=== PATIENT | male | born 1950 | race Caucasian/White ===

== ENCOUNTER → 2016-05-10 | Outpatient (CLI) | payer OTHER | LOC: BHFA 13:15 | PROVIDERS: ATTEND Internal Medicine Cardiovascular Disease | DX: I48.0 Paroxysmal atrial fibrillation (principal); I25.10 Atherosclerotic heart disease of native coronary artery without angina pectoris; E11.9 Type 2 diabetes mellitus without complications; E11.42 Type 2 diabetes mellitus with diabetic polyneuropathy; I10 Essential (primary) hypertension; I25.9 Chronic ischemic heart disease, unspecified; E78.5 Hyperlipidemia, unspecified ==

== ENCOUNTER → 2016-05-19 | Outpatient (CLI) | payer OTHER | LOC: BHFA 15:30 | PROVIDERS: ATTEND Internal Medicine Cardiovascular Disease | DX: I25.10 Atherosclerotic heart disease of native coronary artery without angina pectoris (principal); I48.91 Unspecified atrial fibrillation; I10 Essential (primary) hypertension ==

== ENCOUNTER → 2016-12-21 | Outpatient (CLI) | payer OTHER | LOC: BMCIMAGING 10:33 | PROVIDERS: ATTEND Internal Medicine | DX: J42 Unspecified chronic bronchitis (principal) ==

== ENCOUNTER → 2017-05-02 | Outpatient (CLI) | payer OTHER | LOC: BMCIMAGING 11:22 | PROVIDERS: ATTEND Family Medicine | DX: S52.572A Other intraarticular fracture of lower end of left radius, initial encounter for closed fracture (principal) ==

== ENCOUNTER → 2017-05-09 | Outpatient (CLI) | payer OTHER | LOC: BMCLAB 08:31 → BMCIMAGING 08:31 → EDSTATUS 08:33 | PROVIDERS: ATTEND Physician Assistant | DX: S52.572D Other intraarticular fracture of lower end of left radius, subsequent encounter for closed fracture with routine healing (principal) ==

== ENCOUNTER → 2017-05-16 | Outpatient (CLI) | payer OTHER | LOC: BMCIMAGING 09:42 | PROVIDERS: ATTEND Orthopaedic Surgery Hand Surgery | DX: S59.292D Other physeal fracture of lower end of radius, left arm, subsequent encounter for fracture with routine healing (principal) ==

== ENCOUNTER → 2017-05-25 | Outpatient (CLI) | payer OTHER | LOC: BMCIMAGING 14:01 | PROVIDERS: ATTEND Physician Assistant | DX: S52.532D Colles' fracture of left radius, subsequent encounter for closed fracture with routine healing (principal) ==

== ENCOUNTER → 2017-06-17 | Outpatient (CLI) | payer OTHER | LOC: BMCIMAGING 13:26 | PROVIDERS: ATTEND Physician Assistant | DX: S52.572D Other intraarticular fracture of lower end of left radius, subsequent encounter for closed fracture with routine healing (principal); M17.0 Bilateral primary osteoarthritis of knee ==

== ENCOUNTER 2017-08-31 09:38 | Inpatient (IN) | payer OTHER ==
--- NOTE | 2017-08-31 09:48 | EDPHY ---
H & P Time Seen by Provider: 08/31/17 09:47 HPI/ROS: CHIEF COMPLAINT: Increasing weakness, multiple falls HISTORY OF PRESENT ILLNESS: The patient is brought to the emergency department by paramedics for increasing weakness resulting in multiple falls. The patient states that today he is so weak that he can't walk. The patient has sustained falls but denies any significant head injury, neck pain, extremity pain or back pain. He does complain of some gluteal pain which was present prior to his following. The patient reports a history of a tachycardia which is chronic. The patient does report mild dyspnea. He denies asymmetric calf pain or swelling. The patient reportedly is scheduled to be evaluated by Cardiology for his tachycardia. REVIEW OF SYSTEMS: A comprehensive 10 point review of systems is otherwise negative aside from elements mentioned in the history of present illness. Source: Patient Exam Limitations: No limitations - Family History Significant Family History: No pertinent family hx - Physical Exam Exam: General Appearance: Alert, no distress Head: Normocephalic atraumatic Neck: No midline tenderness Eyes: Pupils equal and round no pallor or injection ENT, Mouth: Dry mucous membranes Respiratory: There are no retractions, lungs are clear to auscultation Cardiovascular: Tachycardic, irregular Gastrointestinal: Abdomen is soft and nontender, no masses, bowel sounds normal Neurological: 5/5 strength all 4 extremities Skin: Erythema noted to the bilateral lower extremities Musculoskeletal: Neck is supple nontender Extremities: 2+ pitting edema bilaterally Constitutional: Initial Vital Signs Temperature (C) 36.5 C 08/31/17 09:45 Heart Rate 122 H 08/31/17 09:45 Respiratory Rate 18 08/31/17 09:45 Blood Pressure 142/57 H 08/31/17 09:45 O2 Sat (%) 91 L 08/31/17 09:45 O2 Delivery Mode Room Air Allergies/Adverse Reactions: No Known Allergies Allergy (Verified 08/31/17 10:56) Home Medications: Medication Instructions Recorded Aspirin [Aspirin 81mg (*)] 162 mg PO HS 08/31/17 Atorvastatin Calcium [Lipitor 20 20 mg PO DAILY 08/31/17 mg (*)] Gabapentin [Neurontin 400 MG (*)] 1,200 mg PO BID 08/31/17 Losartan Potassium [Cozaar 50 mg 50 mg PO DAILY 08/31/17 (*)] Methenamine Mandelate [METHENAMINE 500 gm PO HS 08/31/17 MANDELATE] Pioglitazone HCl [Actos] 45 mg PO DAILY 08/31/17 Tamsulosin HCl [Flomax 0.4 MG (*)] 0.4 mg PO DAILY 08/31/17 glyBURIDE [Glyburide] 10 mg PO BID 08/31/17 metFORMIN HCL [Glucophage 500 mg 1,000 mg PO BID 08/31/17 (*)] Medical Decision Making - Diagnostics EKG Interpretation: EKG: Complete interpretation has been separately recorded in the [facility] archive. Summary impression: Atrial fibrillation, rate 118 Imaging Results: Imaging Impressions Chest X-Ray 08/31/17 09:47 Impression: Possible cardiomegaly without obvious CHF. A routine PA and lateral chest would be useful to better evaluate the cardiac status and in order to directly compare to previous examinations. ED Course/Re-evaluation: The patient presents to the ED with increasing weakness and a history of falling over the past several weeks. The patient did not strike his head or lose consciousness. The patient has no significant traumatic injury identified on his physical exam. The patient is noted to have evidence of mild cellulitis. He is in atrial fibrillation and noted to be hypoxemic. Workup in the emergency department included a EKG which demonstrates atrial fibrillation with rate related changes. His initial troponin is normal. He does have an elevated D-dimer of 0.56. Given his tachycardia and hypoxemia CT pulmonary angiogram has been ordered. Additionally, the patient has evidence of mild cellulitis versus stasis dermatitis to his lower extremities. Blood cultures x2 have been obtained. The patient will be started on 1 g of IV Ancef. The patient will require admission to the hospital. Consultation is made with the hospitalist service. The patient will be admitted to the progressive care unit by Dr. Thurston. CT pulmonary angiogram demonstrates no evidence of an obvious PE or pericardial effusion. Patient will be admitted to the hospital for further observation and management. Differential Diagnosis: Differential diagnosis considered includes atrial fibrillation, atrial flutter, SVT, dehydration, metabolic abnormality, anemia - Data Points Laboratory Results: Laboratory Results 08/31/17 10:25 08/31/17 10:25 08/31/17 08/31/17 08/31/17 10:25 10:25 10:25 WBC 8.85 10^3/uL 10^3/uL (3.80-9.50) RBC 4.46 10^6/uL 10^6/uL (4.40-6.38) Hgb 11.6 g/dL L g/dL (13.7-17.5) Hct 35.3 % L % (40.0-51.0) MCV 79.1 fL L fL (81.5-99.8) MCH 26.0 pg L pg (27.9-34.1) MCHC 32.9 g/dL g/dL (32.4-36.7) RDW 14.8 % % (11.5-15.2) Plt Count 241 10^3/uL 10^3/uL (150-400) MPV 8.8 fL fL (8.7-11.7) Neut % (Auto) 82.9 % H % (39.3-74.2) Lymph % (Auto) 7.7 % L % (15.0-45.0) [place] % (Auto) 8.9 % % (4.5-13.0) Eos % (Auto) 0.0 % L % (0.6-7.6) Baso % (Auto) 0.2 % L % (0.3-1.7) Nucleat RBC Rel Count 0.0 % % (0.0-0.2) Absolute Neuts (auto) 7.33 10^3/uL H 10^3/uL (1.70-6.50) Absolute Lymphs (auto) 0.68 10^3/uL L 10^3/uL (1.00-3.00) Absolute Monos (auto) 0.79 10^3/uL 10^3/uL (0.30-0.80) Absolute Eos (auto) 0.00 10^3/uL L 10^3/uL (0.03-0.40) Absolute Basos (auto) 0.02 10^3/uL 10^3/uL (0.02-0.10) Absolute Nucleated RBC 0.00 10^3/uL 10^3/uL (0-0.01) Immature Gran % 0.3 % % (0.0-1.1) Immature Gran # 0.03 10^3/uL 10^3/uL (0.00-0.10) D-Dimer 0.56 ug/mLFEU H ug/mLFEU (0.00-0.50) Sodium 129 mEq/L L mEq/L (135-145) Potassium 4.2 mEq/L mEq/L (3.3-5.0) Chloride 88 mEq/L L mEq/L (97-110) Carbon Dioxide 25 mEq/l mEq/l (22-31) Anion Gap 16 mEq/L mEq/L (8-16) BUN 12 mg/dL mg/dL (7-23) Creatinine 0.7 mg/dL mg/dL (0.7-1.3) Estimated GFR > 60 Glucose 154 mg/dL H mg/dL (70-100) Calcium 9.9 mg/dL mg/dL (8.5-10.4) Troponin I 0.034 ng/mL ng/mL (0.000-0.034) Medications Given: Discontinued Medications Cefazolin Sodium/Dextrose (Ancef 1 Gm (Premix)) 50 mls @ 200 mls/hr IV EDNOW ONE PRN Reason: Protocol Stop: 08/31/17 12:15 Last Admin: 08/31/17 13:05 Dose: 50 mls Departure - Departure Disposition: [facility] Inpatient Acute Clinical Impression: Atrial fibrillation, Weakness, Dehydration Condition: Fair
--- NOTE | 2017-08-31 09:52 | CPEKG ---
Heart Rate: 118 RR Interval: 508 QRSD Interval: 102 QT Interval: 340 QTC Interval: 477 QRS Layton: 69 T Wave Layton: -61 EKG Severity - ABNORMAL ECG - EKG Impression: ATRIAL FIBRILLATION, V-RATE 90-152 Electronically Signed By: Feliberto Lanza 31-Aug-2017 10:43:47
[2017-08-31 10:34] LABS: PLATELET COUNT 241 10^3/uL (150-400)
[2017-08-31] MEDS ORDERED: ONDANSETRON DISINTEGRATING 4 MG TAB PO PRN (11:00)
[2017-08-31] MEDS ORDERED: NS 1,000 ML IV SCH (11:00)
[2017-08-31] MEDS ORDERED: ONDANSETRON 4 MG/2 ML VIAL IVP PRN (11:00)
[2017-08-31] MEDS ORDERED: ENOXAPARIN 120 MG/0.8 ML SYR SC SCH (11:15)
[2017-08-31] MEDS ORDERED: IOPAMIDOL (ISOVUE 370) 100 ML BTL IV ONE (11:28)
[2017-08-31] MEDS: BUMETANIDE 1 MG/4 ML VIAL IVP SCH (14:49)
--- NOTE | 2017-08-31 14:52 | PDGENHP ---
History and Physical - Chief Complaint Acute weakness - History of Present Illness Primary care provider: Dr. Roberts Primary bulb brander: Dr. Harley Monson History of present illness: 67-year-old male presenting with acute weakness characterized as inability to stand or ambulate with associated subsequent fall , onset of symptoms on the morning of presentation and duration persistent thereafter. Patient reports that they are occurring in the context of several weeks of intermittent symptoms of fatigue, weakness, significant weight gain, abdominal swelling, lower extremity edema. Approximately 2 months ago, the patient began gaining weight, and has gained approximately 50 lb in the interim. He was seen by his primary care provider for this issue, and reportedly 3 different diuretics have been attempted orally, and patient has only begun responding to the 3rd one recently. He does report that the response has resulted in approximately 10 lb of water loss, but he remains approximately 40 lb above his previous weight. He does endorse intermittent dyspnea, but he denies overt shortness of breath at this time. He denies any chest pain, palpitations, lightheadedness. He reports that he is usually able to sense his atrial fibrillation if it is running fast, but he is not currently sense it. Other than his diuretic dose adjustments, he has not made any other medication dose adjustments recently. History Information - Allergies/Home Medication List Allergies/Adverse Reactions: No Known Allergies Allergy (Verified 08/31/17 10:56) Home Medications: Aspirin [Aspirin 81mg (*)] 162 mg PO HS 08/31/17 [Last Taken 08/30/17] Atorvastatin Calcium [Lipitor 20 mg (*)] 20 mg PO DAILY 08/31/17 [Last Taken ] Gabapentin [Neurontin 400 MG (*)] 1,200 mg PO BID 08/31/17 [Last Taken 08/31/17] Losartan Potassium [Cozaar 50 mg (*)] 50 mg PO DAILY 08/31/17 [Last Taken ] Methenamine Mandelate [METHENAMINE MANDELATE] 0.5 gm PO HS 08/31/17 [Last Taken 08/30/17] Pioglitazone HCl [Actos] 45 mg PO DAILY 08/31/17 [Last Taken 08/31/17] Tamsulosin HCl [Flomax 0.4 MG (*)] 0.4 mg PO DAILY 08/31/17 [Last Taken 08/31/17 ] glyBURIDE [Glyburide] 10 mg PO BID 08/31/17 [Last Taken 08/31/17] metFORMIN HCL [Glucophage 500 mg (*)] 1,000 mg PO BID 08/31/17 [Last Taken 08/31] I have personally reviewed and updated: family history, medical history, social history, surgical history - Past Medical History atrial fibrillation (Paroxysmal), coronary artery disease, diabetes type 2 (Not on insulin), GERD Additional medical history: Obstructive sleep apnea diagnosed approximately 1/2 weeks ago, patient has not been placed on CPAP as yet. Bilateral lower extremity neuropathy. Bronchospasm. Peripheral arterial disease - Surgical History Reports: coronary bypass surgery (2000) Additional surgical history: New previous surgery to the hips or legs - Family History Additional family history: No recent sick family contacts - Social History Smoking Status: Former smoker Alcohol Use: Occasionally (2 alcoholic beverages on the night prior to presentation, no history of withdrawal) Drug Use: None Additional social history: Independent in his ADLs Review of Systems Review of Systems: ROS: 10pt was reviewed & negative except for what was stated in HPI & below Constitutional: Reports: weakness, other (Substantial weight gain) Cardiac: Reports: edema (Bilateral lower extremities) Respiratory: Reports: other (Dyspnea) Gastrointestinal: Reports: abdominal distention Physical Exam Physical Exam: Temp Pulse Resp BP Pulse Ox 37.6 C 120 H 20 137/67 H 87 L 08/31/17 13:24 08/31/17 13:24 08/31/17 13:24 08/31/17 13:24 08/31/17 13:24 Constitutional: no apparent distress, not in pain, chronically ill appearing, obese, No uncomfortable Eyes: PERRL, anicteric sclera, EOMI Ears, Nose, Mouth, Throat: moist mucous membranes, hearing normal, ears appear normal, no oral mucosal ulcers Cardiovascular: irregularly irregular, JVD (And positive hepatic jugular reflux) , tachycardia, edema (2+ bilateral lower extremities), No systolic murmur Respiratory: no respiratory distress, no rales or rhonchi, clear to auscultation Gastrointestinal: distension (Moderate), No tenderness, No guarding Skin: other ([place] ability in his bilateral inner thighs, soft tissue edema which is nontender, erythema and some skin breaks in his bilateral anterior lower extremities, several pressure injury on his backside) Neurologic: AAOx3, sensation intact bilaterally, No weakness (Motor strength 5/ 5 bilateral proximal lower extremities) Psychiatric: interacting appropriately, not anxious, not encephalopathic, thought process linear Lab Data & Imaging Review 08/31/17 10:25 08/31/17 10:25 WBC 8.85 10^3/uL (3.80-9.50) 08/31/17 10:25 RBC 4.46 10^6/uL (4.40-6.38) 08/31/17 10:25 Hgb 11.6 g/dL (13.7-17.5) L 08/31/17 10:25 Hct 35.3 % (40.0-51.0) L 08/31/17 10:25 MCV 79.1 fL (81.5-99.8) L 08/31/17 10:25 MCH 26.0 pg (27.9-34.1) L 08/31/17 10:25 MCHC 32.9 g/dL (32.4-36.7) 08/31/17 10:25 RDW 14.8 % (11.5-15.2) 08/31/17 10:25 Plt Count 241 10^3/uL (150-400) 08/31/17 10:25 MPV 8.8 fL (8.7-11.7) 08/31/17 10:25 Neut % (Auto) 82.9 % (39.3-74.2) H 08/31/17 10:25 Lymph % (Auto) 7.7 % (15.0-45.0) L 08/31/17 10:25 [place] % (Auto) 8.9 % (4.5-13.0) 08/31/17 10:25 Eos % (Auto) 0.0 % (0.6-7.6) L 08/31/17 10:25 Baso % (Auto) 0.2 % (0.3-1.7) L 08/31/17 10:25 Nucleat RBC Rel Count 0.0 % (0.0-0.2) 08/31/17 10:25 Absolute Neuts (auto) 7.33 10^3/uL (1.70-6.50) H 08/31/17 10:25 Absolute Lymphs (auto) 0.68 10^3/uL (1.00-3.00) L 08/31/17 10:25 Absolute Monos (auto) 0.79 10^3/uL (0.30-0.80) 08/31/17 10:25 Absolute Eos (auto) 0.00 10^3/uL (0.03-0.40) L 08/31/17 10:25 Absolute Basos (auto) 0.02 10^3/uL (0.02-0.10) 08/31/17 10:25 Absolute Nucleated RBC 0.00 10^3/uL (0-0.01) 08/31/17 10:25 Immature Gran % 0.3 % (0.0-1.1) 08/31/17 10:25 Immature Gran # 0.03 10^3/uL (0.00-0.10) 08/31/17 10:25 D-Dimer 0.56 ug/mLFEU (0.00-0.50) H 08/31/17 10:25 Sodium 129 mEq/L (135-145) L 08/31/17 10:25 Potassium 4.2 mEq/L (3.3-5.0) 08/31/17 10:25 Chloride 88 mEq/L (97-110) L 08/31/17 10:25 Carbon Dioxide 25 mEq/l (22-31) 08/31/17 10:25 Anion Gap 16 mEq/L (8-16) 08/31/17 10:25 BUN 12 mg/dL (7-23) 08/31/17 10:25 Creatinine 0.7 mg/dL (0.7-1.3) 08/31/17 10:25 Estimated GFR > 60 08/31/17 10:25 Glucose 154 mg/dL (70-100) H 08/31/17 10:25 Calcium 9.9 mg/dL (8.5-10.4) 08/31/17 10:25 Troponin I 0.034 ng/mL (0.000-0.034) 08/31/17 10:25 Urine Color YELLOW 08/31/17 13:00 Urine Appearance HAZY 08/31/17 13:00 Urine pH 6.0 (5.0-7.5) 08/31/17 13:00 Ur Specific [place] > 1.035 (1.002-1.030) H 08/31/17 13:00 Urine Protein NEGATIVE (NEGATIVE) 08/31/17 13:00 Urine Ketones TRACE (NEGATIVE) H 08/31/17 13:00 Urine Blood 1+ (NEGATIVE) H 08/31/17 13:00 Urine Nitrate NEGATIVE (NEGATIVE) 08/31/17 13:00 Urine Bilirubin NEGATIVE (NEGATIVE) 08/31/17 13:00 Urine Urobilinogen 2.0 EU (0.2-1.0) H 08/31/17 13:00 Ur Leukocyte Esterase 3+ (NEGATIVE) H 08/31/17 13:00 Urine RBC 3-5 /hpf (0-3) H 08/31/17 13:00 Urine WBC 50-182 /hpf (0-3) H 08/31/17 13:00 Ur Epithelial Cells TRACE /lpf (NONE-1+) 08/31/17 13:00 Urine Mucus TRACE /lpf (NONE-1+) 08/31/17 13:00 Urine Glucose NEGATIVE (NEGATIVE) 08/31/17 13:00 Visualized and Interpreted Chest x-ray results: Yes Chest X-Ray results: no infiltrate, other (Cardiomegaly, sternotomy wires) Visualized and Interpreted EKG results: Yes EKG Interpretation: Positive for: other (Atrial fibrillation with a rate around 118) Assessment & Plan Assessment: 67-year-old male presents with acute right-sided congestive heart failure exacerbation resulting in acute hyponatremia and generalized weakness Plan: 1. Right-sided congestive heart failure exacerbation. Acute, new problem this provider, further workup indicated. Evidenced by significant weight gain of approximately 50 lb with inability to manage his volume status as an outpatient on several different oral diuretics, no significant pulmonary findings on exam or on chest x-ray, suggesting right-sided component -check BNP -check echocardiogram -order outside records from [facility] including most recent stress test, echo results, clinic note -discussed with Cardiology, consultation appreciated -give IV Bumex 1 mg twice daily starting now -monitor strict I&Os, daily weights -monitor oxygen requirements, hypoxia is most likely secondary to his CHF exacerbation 2. Hyponatremia. Acute, most likely secondary to renal hypoperfusion in the setting of CHF exacerbation, resulting in generalized weakness -monitor closely while diuresing -work closely with physical and occupational therapy to determine home care needs 3. Possible cellulitis. Discussed with Dr. Modesto Lanza, he reports to me that the patient had erythema and he has administered IV Ancef -wounds currently bandaged, check procalcitonin level, continue Ancef until result available -monitor blood culture 4. Pressure injury. Present on admission, wound care consultation appreciated, on backside, numerous locations 5. Coronary artery disease. Chronic, continue aspirin statin 6. Paroxysmal atrial fibrillation. Acute rapid ventricular response, most likely provoked in the setting CHF exacerbation, not on any padmini blocking agents or antiarrhythmics -introduce metoprolol tartrate 12.5 mg twice daily, gauge effect -continue aspirin, will address with patient why he is not on systemic anticoagulation -no indication for cardioversion at this time 7. Hypertension. Hold ARB given that we are actively diuresing and introducing beta-shellie, monitor 8. Morbid obesity. BMI of 38.8, increases risk of worsening morbidity and/or mortality 9. Neuropathy. Chronic, continue gabapentin 10. Diabetes mellitus type 2. Continue home oral anti glycemic agents Diet. Diabetic Prophylaxis. High risk patient, Lovenox 40 Code. Full per patient, daughters are joint MD POA Disposition. Anticipated discharge uncertain this time, anticipated length stay is greater than 48 hr for reasonable medical necessity including acute CHF exacerbation with resultant hypoxia complicated by acute hyponatremia, morbid obesity, paroxysmal atrial fibrillation with acute rapid ventricular response and possible cellulitis.
[2017-08-31] MEDS: ENOXAPARIN 40 MG/0.4 ML SYR SC SCH (15:17)
--- NOTE | 2017-08-31 15:50 | WOCRNPDOC ---
WOCRRenny Advanced Assessment Note - Skin Integrity Problem, Advanced Assess Proximal Coccyx Pressure Injury Dressing Type: Open to Air Exudate Amount: None Integumentary Issue Intervention: Dressing Applied, Hydrogel Applied Sakina Wound Tissue: Blanching, Erythema Sakina Wound Swelling: Mild Wound Bed Color: Red, Yellow Wound Bed Constitution: Adhered Slough (100%) Site Measurement - Head-to-Toe Length X Width X Depth (cm): 0.5x0.2x0.1 Pressure Injury Stage: Unstageable Pressure Injury Present on Admit: Yes Skin Integrity Problem Comment: Patient has four pressure injuries to coccyx and sacrum. Cleaned wounds with normal saline and patted dry with gauze. Patient states he spends a lot of time sitting in a chair. Education provided to patient regarding use of cushion while up in chair in hospital and at home, and the importance of getting up every hour for 5 minutes. Patient seemed concerned about his wounds, and requested additional information about pressure injuries. Wound gel applied, and covered with Mepilex sacral border dressing. Wound Care will round again later this week. KARRI Soto in room for assistance. Maryjane ZENG and Guadalupe FRAGOSO in room. Distal Coccyx Pressure Injury Dressing Type: Open to Air Integumentary Issue Intervention: Dressing Applied, Hydrogel Applied Sakina Wound Tissue: Blanching, Erythema Wound Bed Constitution: Adhered Slough (100%) Site Measurement - Head-to-Toe Length X Width X Depth (cm): 0.3x0.2x0.1 Pressure Injury Stage: Unstageable Pressure Injury Present on Admit: Yes Skin Integrity Problem Comment: Lower coccyx pressure injury, present on admission. Difficult to visualize while patient is standing due to size and location. Cleaned with normal saline, wound gel applied, and covered with Mepilex Sacral border dressing. Left Lower Sacrum Pressure Injury Dressing Type: Open to Air Integumentary Issue Intervention: Dressing Applied, Hydrogel Applied Sakina Wound Tissue: Blanching, Erythema Sakina Wound Swelling: Mild Wound Bed Constitution: Adhered Slough (100%) Site Measurement - Head-to-Toe Length X Width X Depth (cm): 1.1x1.2x0.1 Pressure Injury Stage: Unstageable Pressure Injury Present on Admit: Yes Skin Integrity Problem Comment: Pressure injury present on admission. Cleaned with normal saline, wound gel applied, and covered with Mepliex Sacral border dressing. Right Lower Sacrum Pressure Injury Dressing Type: Open to Air Integumentary Issue Intervention: Dressing Applied, Hydrogel Applied Sakina Wound Tissue: Blanching, Erythema Sakina Wound Swelling: Mild Wound Bed Constitution: Adhered Slough (100%) Site Measurement - Head-to-Toe Length X Width X Depth (cm): 0.3x0.6x0.1 Pressure Injury Stage: Unstageable Pressure Injury Present on Admit: Yes Skin Integrity Problem Comment: Pressure injury present on admission. Wound cleaned with normal saline, wound gel applied, and Mepilex Sacral border dressing applied. Measurements taken while patient standing.
--- NOTE | 2017-08-31 16:46 | ECHO ---
[email or web address] [address] [address] Main: [phone] Fax: Transthoracic Echocardiogram Name: BERTA DAVE MR#: [id number] Study Date: 08/31/2017 Study Time: 12:25 PM Date of : 1950 Age: 67 year(s) Height: 180.3 cm (71 in.) Weight: 136.08 kg (300 lb.) BSA: 2.51 m2 Gender: Male Examination: Echo Indication: TACHYCARDIA, PRESYNCOPE Image Quality: Technically Difficult Contrast: Requested by: Feliberto Lanza BP: / Heart Rate: Rhythm: Indication: TACHYCARDIA, PRESYNCOPE Procedure Staff E Merchant: Ana Lilia Durán [facility] Reading Physician: Matthew Bueno MD Requesting Provider: Conclusions: Normal size left ventricle. Borderline concentric LV hypertrophy. The ejection fraction is visually estimated to be 55 %. No regional wall motion abnormality. Unable to assess diastolic dysfunction. The left atrium is mildly to moderately dilated. Mild mitral valve leaflet calcification is present. Mild mitral valve regurgitation is present. No mitral stenosis is present. Mild tricuspid regurgitation is present. The pulmonary artery pressure is normal. No pericardial effusion. Measurements: Chambers Valvular Assessment AV/MV Valvular Assessment TV/PV Normal Normal Normal Name Value Range Name Value Range Name Value Range Ao Fransisca (2D): 3.2 cm (1.4 cm-2.6 AV Vmax: 1.36 m/s (1 m/s-1.7 TR Vmax: 2.05 mm/s ( - ) cm) m/s) TR PGmax: 17 mmHg ( - ) IVSd (2D): 1.2 cm (0.6 cm-1.1 AV maxP mmHg ( - ) syst. PAP: 22 mmHg ( - ) cm) AV meanP mmHg ( - ) PV Vmax: 0.90 m/s (0.6 m/s-0.9 LVDd (2D): 6.0 cm (4.2 cm-5.9 LVOT Vmax: 0.89 m/s (0.7 m/s-1.1 m/s) cm) m/s) PV PGmax: 3 mmHg ( - ) LVDs (2D): 3.8 cm (2.1 cm-4 KIT (Vmax): 2.3 cm2 ( - ) cm) KIT (VTI): 2.2 cm ( - ) LVPWd (2D): 1.2 cm (0.6 cm-1 MV E Vmax: 0.98 m/s ( - ) cm) MV PHT: 0.041 s ( - ) LVOTd 2.1 cm 2.1 cm mm MVA (PHT): 5.4 s ( - ) LVEF (BP): 49 % (>=55 %) Visual EF: 55 % Patient: BERTA DAVE Study Date: 08/31/2017 Page 1 of 2 12:25 PM Continued Measurements: Chambers Valvular Assessment AV/MV Valvular Assessment TV/PV Name Value Name Value Name Value LADs: 5.7 cm MV DecTime: 165 m/s CVP (est.): 5 mmHg LADs Lon.9 cm MV E/E' Lateral: 10.20 LA Area: 26.5 cm2 LA Volume: 95 ml LA Volume Index: 37.8 ml/m2 RA Area: 23.8 cm2 Additional Vessels Name Value Ao Ascendin.8 cm Inferior Vena Cava: 2.3 cm Findings: Left Ventricle: Normal size left ventricle. Borderline concentric LV hypertrophy. Normal global systolic LV function. The ejection fraction is visually estimated to be 55 %. No regional wall motion abnormality. Unable to assess diastolic dysfunction. Right Ventricle: Normal size right ventricle. Normal RV function. Left Atrium: The left atrium is mildly to moderately dilated. Right Atrium: The right atrium is normal in size. Mitral Valve: The mitral valve is normal in appearance and function. Mild mitral valve leaflet calcification is present. Mild mitral valve regurgitation is present. No mitral stenosis is present. Aortic Valve: The aortic valve is tri-leaflet. There is no significant aortic valve regurgitation. No aortic valve stenosis is present. Tricuspid Valve: The tricuspid valve is normal in appearance and function. Mild tricuspid regurgitation is present. The pulmonary artery pressure is normal. Right ventricular systolic pressure measures 22mmHg. Pulmonic Valve: The pulmonic valve is normal in appearance and function. There is no pulmonic regurgitation seen. Aorta: The aorta is normal. Normal size aortic root measuring 3.2 cm. Normal size ascending aorta measuring 2.8 cm. IVC: The IVC is dilated. Pericardium: No pericardial effusion. No pleural effusion. Exam Comments: Technically difficult imaging due to patient body habitus, difficulty remaining still, difficulty breathing and difficulty remaining on left side. (No Signature Object) Patient: BERTA DAVE Study Date: 08/31/2017 Page 2 of 2 12:25 PM [id number]
--- NOTE | 2017-08-31 17:32 | GCON ---
[f rep st] CONSULTATION CARDIOLOGY CONSULTATION DATE OF CONSULTATION: 08/31/2017 REFERRING PHYSICIAN: Brett Thurston MD REASON FOR CONSULTATION: Atrial fibrillation and decompensated congestive heart failure. HISTORY OF PRESENT ILLNESS: The patient is a 67-year-old male with a history of CAD and prior 3-vessel CABG performed in 2000. He also has a history of paroxysmal atrial fibrillation. He is usually followed by Dr. Harley Monson. He presents to the hospital complaining of fatigue, weakness, and inability to ambulate. He thinks he has put on approximately 50 pounds of fluid weight over the past several weeks. Attempts at outpatient diuresis have been unsuccessful. He has not had any chest discomfort suggestive of angina. On admission, he was noted to be in atrial fibrillation with a moderately rapid ventricular response. The patient was unaware of his atrial fibrillation. PAST MEDICAL HISTORY: In addition to his cardiac history, he has type 2 diabetes, gastroesophageal reflux, obstructive sleep apnea. FAMILY HISTORY: Noncontributory. SOCIAL HISTORY: He lives alone. He is a former smoker. MEDICATIONS: Please refer to the medication reconciliation section of the electronic chart. Relevant cardiac medications consist of aspirin 81 mg daily, losartan 50 mg daily, and atorvastatin 20 mg daily. Previous notes mention that the patient was taking metoprolol. He was also previously on warfarin for stroke prophylaxis, but opted to cease anticoagulant therapy several months ago. ALLERGIES: No known drug allergies. REVIEW OF SYSTEMS: Notable for weakness, shortness of breath, and lower extremity edema. Otherwise, 10-point review was negative. PHYSICAL EXAMINATION: VITAL SIGNS: Heart rate 110 to 120 beats per minute with atrial fibrillation on the monitor. Blood pressure 123/61. GENERAL: This is a morbidly obese male who appears older than his chronologic age. He is in no acute distress. He is alert and oriented x3. HEAD AND NECK: No scleral icterus. Mucous membranes moist. Carotid pulses 2+ without bruits. JVP is difficult to assess, secondary to body habitus. CHEST: Lung acevedo clear to auscultation: CARDIAC: Tachycardia with irregularly irregular rhythm. No murmur appreciated. ABDOMEN: Obese, soft, and nontender with normal bowel sounds. EXTREMITIES: He has 2 to 3+ bilateral lower extremity edema. LABORATORY/IMAGING: Sodium 129, potassium 4.2, BUN and creatinine 12 and 0.7. Troponin is 0.034. TSH is pending. CBC demonstrates a white blood cell count of 8.85 with hemoglobin and hematocrit of 11.6 and 35.3, platelet count 241, 000. ECG: His ECG demonstrates atrial fibrillation with a ventricular rate of 118 beats per minute. He has no Q-waves or conduction system disturbances. He has nonspecific ST-T wave abnormalities. IMPRESSION: This is a 67-year-old male who presents with significant fluid retention with a weight gain of approximately 50 pounds over the past several weeks. Attempts at outpatient diuresis have been unsuccessful. He also has a history of coronary artery disease with prior coronary artery bypass graft. He is not experiencing any ischemic symptoms. His last echocardiogram was in June of 2015, and demonstrated an ejection fraction of 60% with age related valvular changes, but no hemodynamically significant valvular dysfunction. Pulmonary artery systolic pressure was not estimated. Diastolic dysfunction was noted. His clinical picture is consistent with acute on chronic diastolic heart failure with an additional component of cor pulmonale. This is also exacerbated because of his atrial fibrillation with rapid ventricular response. RECOMMENDATIONS: We will start beta shellie therapy to help control his heart rate. If he remains in atrial fibrillation, consideration can be given to cardioversion if he is willing to accept consistent systemic anticoagulation. We will order an echocardiogram to reassess left ventricular function. He has been started on twice daily intravenous Bumex. If he does not demonstrate an adequate diuretic response, would have a low threshold for starting a furosemide drip. We will assess his intake and output tomorrow to guide decision making in this regard. /[id number]/MODL MTDD
[2017-08-31] MEDS: ACETAMINOPHEN 325 MG TAB PO PRN (19:09)
[2017-08-31] MEDS ORDERED: METOPROLOL TARTRATE 25 MG TAB PO SCH (21:00)
[2017-08-31] MEDS: ceFAZolin 2 GM/DEXTROSE 100 ML IV SCH ×2 (21:08→23:12)
[2017-08-31] MEDS: glyBURIDE 5 MG TAB PO SCH (21:16)
[2017-08-31] MEDS: ASPIRIN 81 MG CHEWABLE TAB PO SCH (21:16)
[2017-08-31] MEDS: GABAPENTIN 400 MG CAP PO SCH (21:16)
[2017-08-31] MEDS: metFORMIN HCL 500 MG TAB PO SCH (21:17)
[2017-08-31] MEDS: METOPROLOL TARTRATE 25 MG TAB PO SCH (21:19)
[2017-08-31] MEDS: METHENAMINE MANDELATE PO SCH (23:11)
[2017-09-01] MEDS: ceFAZolin 2 GM/DEXTROSE 100 ML IV SCH ×2 (06:01→16:18)
[2017-09-01] MEDS ORDERED: LOSARTAN POTASSIUM 50 MG TAB PO SCH (09:00)
[2017-09-01] MEDS ORDERED: NON-FORMULARY NEW DRUG (Pioglitazone Hcl [Actos] 45 MG) PO SCH (09:00)
[2017-09-01] MEDS: GABAPENTIN 400 MG CAP PO SCH ×2 (10:06→21:06)
[2017-09-01] MEDS: POTASSIUM CL 20 MEQ TAB PO SCH (10:06)
[2017-09-01] MEDS: TAMSULOSIN HCL 0.4 MG CAP PO SCH (10:06)
[2017-09-01] MEDS: glyBURIDE 5 MG TAB PO SCH ×2 (10:06→21:06)
[2017-09-01] MEDS: METOPROLOL TARTRATE 25 MG TAB PO SCH (10:06)
[2017-09-01] MEDS: PIOGLITAZONE HCL 15 MG TAB PO SCH (10:06)
[2017-09-01] MEDS: ATORVASTATIN CALCIUM 20 MG TAB PO SCH (10:07)
[2017-09-01] MEDS: BUMETANIDE 1 MG/4 ML VIAL IVP SCH ×4 (10:07→16:25)
[2017-09-01] MEDS: metFORMIN HCL 500 MG TAB PO SCH ×2 (10:16→21:05)
[2017-09-01] MEDS: ENOXAPARIN 40 MG/0.4 ML SYR SC SCH (10:45)
--- NOTE | 2017-09-01 12:29 | PDMN ---
Medical Necessity Medical necessity: est los>2mn for acute CHF exacerbation w/hypoxia complicated by acute hyponatremia, morbid obesity, PAF w/acute RVR, and possible cellulitis ; admit for IV diuresis, I&O, PT/OT, IV abx, follow wound cx, initiate metropolol; per order and H&P 08/31/17
--- NOTE | 2017-09-01 14:31 | ASMTCMCOM ---
CM Note CM Note Notes: Chart reviewed for discharge planning purposes. Patient is a 67 year old male admitted via ED s/p weakness and falls. History significant for CABG, ERMELINDA and apparently new onset of CHF. Per PT and OT evaluations he is unsafe to discharge home, I have sat with him to discuss rehab and he is reluctant to commit to this but understands he may need to. He is agreeable to [facility] and reports he lives in [place] with one of his daughters. We did discuss [facility] in [place] as a possible SNF rehab for him. Will send referral to [facility]. Will monitor patient's progress as he is likely here a few more days. CM to follow. Plan: TBD but likely Rehab Date Signed: 09/01/2017 02:30 PM Electronically Signed By:Mildred Kaplan RN
--- NOTE | 2017-09-01 14:56 | PDCARPN ---
Cardiology Progress Note Assessment/Plan: Acute on Chronic Cor Pulmonale (with probable diastolic CHF as well): admitted with profound weakness and significant fluid overload. Clinical picture of predominantly right-sided CHF. However, his echocardiogram did not demonstrate significant right-sided chamber enlargement or pulmonary hypertension. Modest response to IV Bumex so far; I&O neg by 995cc in last 24 hr. - Bumex dose increased today per hospitalist service. - Consider continuous IV furosemide drip if diuretic response remains suboptimal. - Needs to continue outpatient plans for management of recently diagnosed ERMELINDA. Persistent Atrial Fibrillation: ventricular rate improved but not yet optimal. He opted to forego systemic anticoagulation a few months ago. Sounds as if he was only on warfarin for a short time. - Increase metoprolol. - Discussed cost vs convenience of direct anticoagulants. If cardioversion becomes a consideration, will need firm commitment from him for minimum of 4 weeks of anticoagulation. Coronary Artery Disease: stable without symptoms of angina. Last Lexiscan Nuclear stress test was in July 2015 and was normal without evidence of ischemia or infarction. - Continue secondary prevention. Hypertension: adequately controlled at present. ARB on hold with introduction of B-shellie. - Continue to monitor. 09/01/17 14:53 Subjective: Edema improving; stronger today. Objective: Vital Signs (8 Hrs) Temp Pulse Resp BP Pulse Ox 09/01/17 11:20 36.7 C 113 H 18 116/68 92 09/01/17 07:13 36.7 C 111 H 16 114/70 99 Intake/Output (24 Hrs) 08/31/17 09/01/17 09/02/17 05:59 05:59 05:59 Intake Total 715 Output Total 1710 Balance -995 Intake: Oral (ml) 590 IV Infused (ml) 125 ceFAZolin 2 GM/DEXTROSE 125 100 ml @ 200 mls/hr IV Q8HRS [facility] Rx#:[id number] Output: Urine (ml) 1710 Catheter 250 Urinal 1460 Other: Weight 127.7 kg Result Diagrams: 08/31/17 10:25 09/01/17 04:17 Cardiac Labs: Cardiac Lab Results (72 Hrs) 08/31/17 13:20 Troponin I 0.034 - Physical Exam Constitutional: no apparent distress, obese Eyes: anicteric sclera Ears, Nose, Mouth, Throat: moist mucous membranes Cardiovascular: no murmurs, no gallops, irregularly irregular Respiratory: clear to auscultate bilat Gastrointestinal: normoactive bowel sounds, no tenderness, no masses Skin: other (moderate to severe edema; bandages in place) Neurologic: AAOx3 Psychiatric: interactive, not anxious ICD10 Worksheet Patient Problems: Problems Problem Status Onset chronic disease mgmt/transitional care Acute Atrial fibrillation Acute Weakness Acute Dehydration Acute
--- NOTE | 2017-09-01 15:30 | HOSPPROG ---
Hospitalist Progress Note Assessment/Plan: Assessment: 67-year-old male presents with acute right-sided congestive heart failure exacerbation resulting in acute hyponatremia and generalized weakness Plan: 1. Right-sided congestive heart failure and diastolic CHF exacerbation. Acute , evidenced by significant weight gain of approximately 50 lb with inability to manage his volume status as an outpatient on several different oral diuretics, no significant pulmonary findings on exam or on chest x-ray, suggesting right- sided component -net neg 1L o/n -still very hypervolemic, increased bumex to 1.5mg IV bid, gauge response -if response sub-optimal, will d/w Cardiology lasix gtt, appreciate ongoing consultation -check liver US -will continue to educate patient, d/w transitional care today 2. Hyponatremia. Acute, most likely secondary to renal hypoperfusion in the setting of CHF exacerbation, resulting in generalized weakness, resolved, cont to monitor 3. Stasis dermatitis. 2/2 edema, PCT wnl, unlikely to have cellulitis, stop Abx 4. Pressure injury. Present on admission, wound care consultation appreciated, on backside, numerous locations 5. Coronary artery disease. Chronic, continue aspirin statin 6. Paroxysmal atrial fibrillation. Acute rapid ventricular response, most likely provoked in the setting CHF exacerbation, recently declined anticoagulation as outpatient -increased metoprolol tartrate 50 mg twice daily, gauge effect on tele ( personally interpreted, currently 110-120) -no indication for cardioversion at this time -per Cards, considering DOAC 7. Hypertension. Hold ARB given that we are actively diuresing and introducing beta-shellie, monitor 8. Morbid obesity. BMI of 38.8, increases risk of worsening morbidity and/or mortality 9. Neuropathy. Chronic, continue gabapentin 10. Diabetes mellitus type 2. Continue home oral anti glycemic agents Diet. Diabetic Prophylaxis. High risk patient, Lovenox 40 Code. Full per patient, daughters are joint MD POA Disposition. Anticipated discharge uncertain this time High-level medical complexity, higher risk of worsening morbidity secondary to the issues as outlined above. Subjective: patient reports he is more stable on feet Objective: Vital Signs Temp Pulse Resp BP Pulse Ox 37.0 C 109 H 18 114/63 94 09/01/17 15:14 09/01/17 15:14 09/01/17 15:14 09/01/17 15:14 09/01/17 15:14 Laboratory Results 09/01/17 04:17 08/31/17 09/01/17 09/02/17 05:59 05:59 05:59 Intake Total 715 Output Total 1710 Balance -995 - Physical Exam Constitutional: no apparent distress, not in pain, chronically ill appearing, obese Cardiovascular: irregularly irregular, JVD, tachycardia, edema (2+ bilat LE), No systolic murmur Respiratory: no respiratory distress, no rales or rhonchi, clear to auscultation Gastrointestinal: normoactive bowel sounds, soft, non-tender abdomen, no palpable masses, distension (moderate) Skin: other (blanchable confluence bilat LE w/ scattered open sores) Neurologic: AAOx3 Psychiatric: interacting appropriately, not anxious, not encephalopathic, thought process linear ICD10 Worksheet Patient Problems: Problems Problem Status Onset Atrial fibrillation Acute Dehydration Acute Weakness Acute chronic disease mgmt/transitional care Acute
[2017-09-01] MEDS: ASPIRIN 81 MG CHEWABLE TAB PO SCH (21:05)
[2017-09-01] MEDS: METOPROLOL TARTRATE 50 MG TAB PO SCH (21:06)
[2017-09-01] MEDS: METHENAMINE MANDELATE PO SCH (21:09)
[2017-09-02] MEDS: POTASSIUM CL 20 MEQ TAB PO SCH (09:15)
[2017-09-02] MEDS: TAMSULOSIN HCL 0.4 MG CAP PO SCH (09:15)
[2017-09-02] MEDS: ENOXAPARIN 40 MG/0.4 ML SYR SC SCH (09:15)
[2017-09-02] MEDS: glyBURIDE 5 MG TAB PO SCH ×2 (09:15→21:18)
[2017-09-02] MEDS: GABAPENTIN 400 MG CAP PO SCH ×2 (09:15→21:17)
[2017-09-02] MEDS: ATORVASTATIN CALCIUM 20 MG TAB PO SCH (09:15)
[2017-09-02] MEDS: PIOGLITAZONE HCL 15 MG TAB PO SCH (09:15)
[2017-09-02] MEDS: METOPROLOL TARTRATE 50 MG TAB PO SCH ×2 (09:16→21:17)
[2017-09-02] MEDS: metFORMIN HCL 500 MG TAB PO SCH ×2 (09:16→21:20)
[2017-09-02] MEDS: BUMETANIDE 1 MG/4 ML VIAL IVP SCH (09:16)
--- NOTE | 2017-09-02 10:32 | WOCRNPDOC ---
[facility] Advanced Assessment Note - Skin Integrity Problem, Advanced Assess Proximal Coccyx Pressure Injury Dressing Type: Hydrocolloid, Mepilex Border Dressing Description: Clean/Dry, Intact Integumentary Issue Intervention: Dressing Changed, Dressing Initialed & Dated, Mechanical Debridement Sakina Wound Tissue: Blanching, Erythema Wound Bed Color: Yellow Wound Bed Constitution: Adhered Slough Wound Edges: Attached, Well Defined Site Odor: None Pressure Injury Stage: Unstageable Pressure Injury Present on Admit: Yes Skin Integrity Problem Comment: Patient stood from chair using walker and with assist from PT and KARRI Rosen. Wound beds still with yellow adhered slough. Wounds remain unstageable at this time. Will change orders to replace hydrogel with honey to see if we can autolytically debride these wounds. Wound bed cleaned with NS and gauze. Honey gel placed in wound bed. Sakina wound skin prepped with skin prep. All four wounds covered with single replicare dressing and then area covered with Mepilex sacral dressing. Several replicare dressings remain in room in wound bucket. Patient questions answered. Wound care will round again next week. Distal Coccyx Pressure Injury Dressing Type: Hydrocolloid, Mepilex Border Dressing Description: Clean/Dry, Intact Integumentary Issue Intervention: Dressing Changed, Dressing Initialed & Dated, Mechanical Debridement Sakina Wound Tissue: Blanching, Erythema Wound Bed Color: Yellow Wound Bed Constitution: Adhered Slough Wound Edges: Attached, Well Defined Pressure Injury Stage: Unstageable Pressure Injury Present on Admit: Yes Left Lower Sacrum Pressure Injury Dressing Type: Hydrocolloid, Mepilex Border Dressing Description: Clean/Dry, Intact Integumentary Issue Intervention: Dressing Changed, Dressing Initialed & Dated, Mechanical Debridement Sakina Wound Tissue: Blanching, Erythema Wound Bed Color: Yellow Wound Bed Constitution: Adhered Slough Wound Edges: Attached, Well Defined Pressure Injury Stage: Unstageable Pressure Injury Present on Admit: Yes Right Lower Sacrum Pressure Injury Dressing Type: Hydrocolloid, Mepilex Border Dressing Description: Clean/Dry, Intact Integumentary Issue Intervention: Dressing Changed, Dressing Initialed & Dated, Mechanical Debridement Sakina Wound Tissue: Blanching, Erythema Wound Bed Color: Yellow Wound Bed Constitution: Adhered Slough Wound Edges: Attached, Well Defined Pressure Injury Stage: Unstageable Pressure Injury Present on Admit: Yes
[2017-09-02] MEDS: FUROSEMIDE 100 MG in D5W 100 ML IV SCH (13:36)
--- NOTE | 2017-09-02 15:32 | PDCARPN ---
Cardiology Progress Note Assessment/Plan: Acute on Chronic Cor Pulmonale (with probable diastolic CHF as well): admitted with profound weakness and significant fluid overload. Clinical picture of predominantly right-sided CHF. However, his echocardiogram did not demonstrate significant right-sided chamber enlargement or pulmonary hypertension. Modest response to IV Bumex so far. - Renal function and mild hyponatremia stable; [id number]. - Switch to IV furosemide drip. - Needs to continue outpatient plans for management of recently diagnosed ERMELINDA. Persistent Atrial Fibrillation: ventricular rate improved but not yet optimal. He opted to forego systemic anticoagulation a few months ago. Sounds as if he was only on warfarin for a short time. - Continue metoprolol 50 mg BID. - Add digoxin. - Discussed cost vs convenience of direct anticoagulants. If cardioversion becomes a consideration, will need firm commitment from him for minimum of 4 weeks of anticoagulation. Coronary Artery Disease: stable without symptoms of angina. Last Lexiscan Nuclear stress test was in July 2015 and was normal without evidence of ischemia or infarction. - Continue secondary prevention. Hypertension: adequately controlled at present. ARB on hold with introduction of B-shellie. - Continue to monitor. 09/02/17 15:34 Subjective: Edema persists; no other complaints. Objective: Vital Signs (8 Hrs) Temp Pulse Resp BP Pulse Ox 09/02/17 12:00 36.7 C 95 17 132/70 H 94 09/02/17 09:15 93 09/02/17 07:47 36.7 C 99 17 130/73 H 94 Intake/Output (24 Hrs) 09/01/17 09/02/17 09/03/17 05:59 05:59 05:59 Intake Total 715 1100 Output Total 1710 500 Balance -995 1100 -500 Intake: Oral (ml) 590 1000 IV Infused (ml) 125 100 ceFAZolin 2 GM/DEXTROSE 125 100 100 ml @ 200 mls/hr IV Q8HRS [facility] Rx#:[id number] Output: Urine (ml) 1710 500 Catheter 250 Incontinence 500 Urinal 1460 Other: Weight 127.7 kg 127.5 kg Number of Voids Incontinence 1 Result Diagrams: 08/31/17 10:25 09/02/17 03:18 Cardiac Labs: Cardiac Lab Results (72 Hrs) 08/31/17 13:20 Troponin I 0.034 - Physical Exam Constitutional: no apparent distress, obese Eyes: anicteric sclera Ears, Nose, Mouth, Throat: moist mucous membranes Cardiovascular: no murmurs, no rubs, irregularly irregular Respiratory: clear to auscultate bilat Gastrointestinal: normoactive bowel sounds, no tenderness, no masses Skin: other (moderate bilateral LE edema) Neurologic: AAOx3 Psychiatric: cooperative, not anxious ICD10 Worksheet Patient Problems: Problems Problem Status Onset Atrial fibrillation Acute Dehydration Acute Weakness Acute chronic disease mgmt/transitional care Acute
--- NOTE | 2017-09-02 15:32 | ASMTCMCOM ---
CM Note CM Note Notes: Chart reviewed. Patient adamantly refusing SNF despite wounds and limited mobility. Currently on lasix drip.Referrals to [facility] done. Pending review. Per therapy they recommend SNF. CM to follow. Plan: TBD Date Signed: 09/02/2017 03:31 PM Electronically Signed By:Mildred Kaplan RN
--- NOTE | 2017-09-02 18:20 | HOSPPROG ---
Hospitalist Progress Note Assessment/Plan: Assessment: 67-year-old male presents with acute right-sided congestive heart failure exacerbation resulting in acute hyponatremia and generalized weakness Plan: 1. Right-sided congestive heart failure and diastolic CHF exacerbation. Acute , evidenced by significant weight gain of approximately 50 lb with inability to manage his volume status as an outpatient on several different oral diuretics, no significant pulmonary findings on exam or on chest x-ray, suggesting right- sided component, BNP 1010 -US w/o liver etiology of edema -unable to quantify I/O overnight, as he urinated on floor -still very hypervolemic, d/w Dr. Bueno and we agree that patient requires much more aggressive diuresis and a lasix gtt is appropriate to initiate -supplement K, monitor Cr -condom cath to keep stricter I/O, monitor weights -educated patient about CHF diagnosis and the transitional care program 2. Hyponatremia. Acute, most likely secondary to renal hypoperfusion in the setting of CHF exacerbation, resulting in generalized weakness -declining w/ more aggressive diuresis, monitor 3. Stasis dermatitis. 2/2 edema, PCT wnl, unlikely to have cellulitis, stopped Abx -local wound care to legs, requires ongoing outpt wound mgmt, 2/2 pressure from edema 4. Pressure injury. Present on admission, numerous locations on coccyx/backside , ongoing wound consultation -outpt home RN for wound care 5. Coronary artery disease. Chronic, continue aspirin statin 6. Paroxysmal atrial fibrillation. Acute rapid ventricular response, most likely provoked in the setting CHF exacerbation, recently declined anticoagulation as outpatient -increased metoprolol tartrate 50 mg twice daily w/o significant effect, digoxin added today -cont to monitor on tele -no indication for cardioversion at this time -per Cards, considering DOAC -if he decides not to pursue anticoagulation, would recommend him for Watchman consideration 7. Hypertension. Hold ARB given that we are actively diuresing and introducing beta-shellie, monitor 8. Morbid obesity. BMI of 38.8, increases risk of worsening morbidity and/or mortality 9. Neuropathy. Chronic, continue gabapentin 10. Diabetes mellitus type 2. Continue home oral anti glycemic agents, hold actos given CHF exacerbation 11. . Acute last PM, responded to redirection, give melatonin HS tonight Diet. Diabetic Prophylaxis. High risk patient, Lovenox 40 Code. Full per patient, daughters are joint MD POA Disposition. Anticipated discharge 09/03 per patient request, he remains severely hypervolemic and ideally would remain in-house several more days for diuresis, but he is requesting home care and consideration of discharge on 09/03, case mgmt working w/ patient's daughter to determine whether he will have adequate support at home. High-level medical complexity, higher risk of worsening morbidity secondary to the issues as outlined above. Subjective: patient had significant sundowning last night, urinating on floor and taking off clothes, feels well now Objective: Vital Signs Temp Pulse Resp BP Pulse Ox 36.7 C 95 17 132/70 H 94 09/02/17 12:00 09/02/17 12:00 09/02/17 12:00 09/02/17 12:00 09/02/17 12:00 Laboratory Results 09/02/17 03:18 09/01/17 09/02/17 09/03/17 05:59 05:59 05:59 Intake Total 715 1100 Output Total 1710 500 Balance -995 1100 -500 - Physical Exam Constitutional: no apparent distress, not in pain, obese, No uncomfortable Cardiovascular: irregularly irregular, tachycardia, edema (2+ bilat LE), other ( positive Hepatojugular reflux) Respiratory: no respiratory distress, no rales or rhonchi, clear to auscultation Gastrointestinal: normoactive bowel sounds, distension (moderate), No tenderness , No guarding Skin: other (blanching erythema bilat LE w/ ulcerations) Neurologic: AAOx3, No weakness (motor 5/5 bilat LE), No facial droop Psychiatric: interacting appropriately, not anxious, not encephalopathic, thought process linear ICD10 Worksheet Patient Problems: Problems Problem Status Onset chronic disease mgmt/transitional care Acute Atrial fibrillation Acute Weakness Acute Dehydration Acute
[2017-09-02] MEDS: ASPIRIN 81 MG CHEWABLE TAB PO SCH (21:17)
[2017-09-02] MEDS: MELATONIN 3 MG TAB PO SCH (21:18)
[2017-09-02] MEDS: METHENAMINE MANDELATE PO SCH (21:19)
[2017-09-03] MEDS: FUROSEMIDE 100 MG in D5W 100 ML IV SCH ×3 (00:09→18:13)
[2017-09-03] MEDS ORDERED: PROTOCOL MAGNESIUM 1 DOSE IV PRN (09:06)
[2017-09-03] MEDS ORDERED: MAGNESIUM SULF 2 GM/WATER 50 ML IV ONE (09:15)
--- NOTE | 2017-09-03 10:04 | PDCARPN ---
Cardiology Progress Note Chief Complaint: Weight gain, fatigue. Assessment/Plan: Assessment: 1. Acute on Chronic Cor Pulmonale (weight has increased over the last 24 hr and I/O is +300 cc) 2. Afib with RVR 3. Coronary Artery Disease 4. Hypomagnesemia 5. Hyponatremia 6. Essential Hypertension Plan: -Magnesium repletion now -add magnesium replacement protocol -Continue lasix gtt -add Spironolactone 25 mg daily -Add Eliquis 5 mg PO bid (discussed role of anticoagulation in the setting of CHADS VASC of 5, he is agreeable to start Eliquis) -Continue Metoprolol Tartrate 50 mg po bid -Will not consider digoxin until magnesium has been normalized. -I do not think he is an appropriate candidate for discharge home today in the setting of electrolyte abnormalities, weight gain, sub optimal rate control of afib and significant edema) 09/03/17 09:56 Subjective: Mr. Montenegro states he is feeling better. He notes marked improvement in edema since admission. He denies complaints of chest pain or pressure. He remains in Afib with RVR with rates in the 100-110 range. His weight has increased over the last 24 hours and I/O are positive 300 cc. He was started on Lasix gtt yesterday. NOte decline in Sodium to 130 and Mg of 1.2 this AM. BP remains stable with SBP in the 120-130's. I had discussion with Mr. Montenegro regarding the role of anticoagulation in the setting of Afib with CHADS VASC of 5. Discussed risks and benefits of anticoagulation. He is agreeable to start Eliquis. He informs me he is going home today. I do not think he is appropriate candidate for discharge based on significant remaining edema, electroltyte abnormalitites, Afib with RVR. Reviewed/Discussed With: multidisciplinary team Time Spent with Patient: greater than 25 minutes Time Spent with Patient: Greater than 25 minutes spent on this patients care, greater than 50% of time spent counseling, educating, and coordinating care regarding the above mentioned plan. Objective: Vital Signs (8 Hrs) Temp Pulse Resp BP Pulse Ox 09/03/17 07:31 36.8 C 90 15 133/61 H 92 09/03/17 04:00 36.7 C 109 H 20 130/76 H 94 Intake/Output (24 Hrs) 0609/03/17 09/04/17 05:59 05:59 05:59 Intake Total 1100 1980 Output Total 1600 Balance 1100 380 Intake: Oral (ml) 1000 1850 IV Intake (ml) 130 IV Infused (ml) 100 ceFAZolin 2 GM/DEXTROSE 100 100 ml @ 200 mls/hr IV Q8HRS [facility] Rx#:[id number] Output: Urine (ml) 1600 Incontinence 900 Urinal 700 Other: Weight 127.5 kg 128.866 kg Intake Quantity Yes Sufficient Number of Voids Incontinence 1 Number of Stools Incontinence 1 Result Diagrams: 08/31/17 10:25 09/03/17 03:36 Cardiac Labs: Cardiac Lab Results (72 Hrs) 08/31/17 13:20 Troponin I 0.034 - Physical Exam Constitutional: obese Ears, Nose, Mouth, Throat: moist mucous membranes Cardiovascular: no murmurs, no rubs, no gallops, irregularly irregular, other ( 3 + dense, pitting edema to above the knee bilaterally with oozing lesions on LE ) Respiratory: clear to auscultate bilat, reduced air movement Neurologic: AAOx3, CN II-XII grossly intact Psychiatric: cooperative, interactive, following commands ICD10 Worksheet Patient Problems: Problems Problem Status Onset Atrial fibrillation Acute Dehydration Acute Weakness Acute chronic disease mgmt/transitional care Acute
[2017-09-03] MEDS: GABAPENTIN 400 MG CAP PO SCH ×2 (10:06→20:28)
[2017-09-03] MEDS: glyBURIDE 5 MG TAB PO SCH ×2 (10:06→20:29)
[2017-09-03] MEDS: METOPROLOL TARTRATE 50 MG TAB PO SCH ×2 (10:06→20:29)
[2017-09-03] MEDS: metFORMIN HCL 500 MG TAB PO SCH ×2 (10:07→20:28)
[2017-09-03] MEDS: TAMSULOSIN HCL 0.4 MG CAP PO SCH (10:07)
[2017-09-03] MEDS: ATORVASTATIN CALCIUM 20 MG TAB PO SCH (10:07)
[2017-09-03] MEDS: ENOXAPARIN 40 MG/0.4 ML SYR SC SCH (10:07)
[2017-09-03] MEDS: POTASSIUM CL 20 MEQ TAB PO SCH (10:07)
--- NOTE | 2017-09-03 10:40 | HOSPPROG ---
Hospitalist Progress Note Assessment/Plan: # acute right sided diastolic CHF - incontinence makes IOs unreliable; weight actually up today - cont lasix gtt - aldactone started today # paroxysmal a-fib with RVR - still rapid - cont metop - eliquis per cards for CAHDSVasc=5 # hypoMg - replete aggressively # hypoNa - follow with diuresis # CAD - asa/statin # pressure injury, POA - wound care # htn - hold arb, BB started # morbid obesity - BMI 38 # neuropathy - gabapentin # DM2 - cont metformin, hold actos # sundowning - follow # dispo - inpatient; he desires to be discharged but is not medically ready; we discussed this today Subjective: frustrated with still being in the hospital Objective: Vital Signs Temp Pulse Resp BP Pulse Ox 36.8 C 90 15 133/61 H 92 09/03/17 07:31 09/03/17 07:31 09/03/17 07:31 09/03/17 07:31 09/03/17 07:31 Laboratory Results 09/03/17 03:36 09/02/17 09/03/17 09/04/17 05:59 05:59 05:59 Intake Total 1100 1980 Output Total 1600 800 Balance 1100 380 -800 chart reviewed CXR, CT, echo reviewed - Physical Exam Constitutional: no apparent distress, appears nourished Cardiovascular: no murmur, rub, or gallop, irregularly irregular, edema (3+ bilat LE) Respiratory: no respiratory distress, no rales or rhonchi, clear to auscultation Gastrointestinal: soft, non-tender abdomen, no palpable masses, distension, No tenderness, No guarding, No rebound ICD10 Worksheet Patient Problems: Problems Problem Status Onset chronic disease mgmt/transitional care Acute Atrial fibrillation Acute Weakness Acute Dehydration Acute
[2017-09-03] MEDS: SPIRONOLACTONE 25 MG TAB PO SCH (10:44)
--- NOTE | 2017-09-03 15:18 | ASMTCMCOM ---
CM Note CM Note Notes: CM met with patient and daughter Marge . CM shared [facility] accepted for SNF and [facility] for Home Health. We discussed Home Health skilled support can be supplemented with Home Care, CM labeled Home care pages in [employer]. CM shared this tough decision doesn't need to be made now as patient is very eager to leave, we discussed the goal of SNF is for strengthening and to support a successful transition home. Patient did not decline SNF at this time. Discharge likely +/-5 days per RN. CM to follow. Current D/C plan: D/C date TBD, SNF vs. HH, as family is currently undecided. Date Signed: 09/03/2017 03:17 PM Electronically Signed By:Luda Sahu
[2017-09-03] MEDS: ASPIRIN 81 MG CHEWABLE TAB PO SCH (20:28)
[2017-09-03] MEDS: MELATONIN 3 MG TAB PO SCH (20:29)
[2017-09-03] MEDS: APIXABAN 5 MG TAB PO SCH (20:33)
[2017-09-03] MEDS ORDERED: METHENAMINE MANDELATE 1 GM PO SCH (21:00)
[2017-09-04] MEDS: FUROSEMIDE 100 MG in D5W 100 ML IV SCH ×3 (06:46→19:01)
[2017-09-04] MEDS ORDERED: MAGNESIUM SULF 2 GM/WATER 50 ML IV ONE (07:12)
[2017-09-04] MEDS: ENOXAPARIN 40 MG/0.4 ML SYR SC SCH (08:58)
[2017-09-04] MEDS: glyBURIDE 5 MG TAB PO SCH ×2 (08:58→21:55)
[2017-09-04] MEDS: APIXABAN 5 MG TAB PO SCH ×2 (08:58→21:55)
[2017-09-04] MEDS: ATORVASTATIN CALCIUM 20 MG TAB PO SCH (08:58)
[2017-09-04] MEDS: METOPROLOL TARTRATE 50 MG TAB PO SCH ×2 (08:58→21:56)
[2017-09-04] MEDS: POTASSIUM CL 20 MEQ TAB PO SCH (08:58)
[2017-09-04] MEDS: GABAPENTIN 400 MG CAP PO SCH ×2 (08:59→21:54)
[2017-09-04] MEDS: SPIRONOLACTONE 25 MG TAB PO SCH (09:00)
[2017-09-04] MEDS: TAMSULOSIN HCL 0.4 MG CAP PO SCH (09:00)
[2017-09-04] MEDS: metFORMIN HCL 500 MG TAB PO SCH ×2 (09:01→21:55)
--- NOTE | 2017-09-04 10:46 | PDCARPN ---
Cardiology Progress Note Assessment/Plan: Assessment: 1. Acute on Chronic Cor Pulmonale (weight decreased 1 Kg and neg 1600 in last 24 hours) 2. Afib with RVR 3. Coronary Artery Disease 4. Hypomagnesemia 5. Hyponatremia 6. Essential Hypertension Plan: -Magnesium repletion now -add magnesium oxide 400 mg po bid -Continue lasix gtt -Continue Spironolactone 25 mg daily -Continue Eliquis 5 mg PO bid (discussed role of anticoagulation in the setting of CHADS VASC of 5, he is agreeable to start Eliquis) -INcrease Metoprolol Tartrate to 75 mg po bid -Will not consider digoxin until magnesium has been normalized. -Consider NIKKY/DCCV when fluid balance improves prior to discharge 09/03/17 09:56 09/04/17 10:47 Subjective: Mr. Montenegro has no new complaints this AM. His weight is down from 128.9 to 127.9 Kg with -1600 in last 254 hours. He continues to have hypomagnesemia. IV repletion in place. BP is tolerating the addition of spironolactone. K .38 today. He remains in afib with sub optimal rate control. Will increase metoprolol tartrate to 75 mg bid.. Would not add digoxin until electrolytes normalized. Reviewed/Discussed With: multidisciplinary team Objective: Vital Signs (8 Hrs) Temp Pulse Resp BP Pulse Ox 09/04/17 07:06 36.7 C 100 20 130/76 H 97 09/04/17 03:29 36.7 C 88 20 116/68 98 Intake/Output (24 Hrs) 09/03/17 09/04/17 09/05/17 05:59 05:59 05:59 Intake Total 1979 2079 Output Total 1600 3700 550 Balance 380 -1620 -550 Intake: Oral (ml) 1850 1590 IV Intake (ml) 130 220 IV Infused (ml) 270 Furosemide 100 mg In D5w 220 100 ml @ As Directed IV CONT ANIKA Rx#:[id number] Magnesium Sulf 2 gm/Water 50 50 ml @ 50 mls/hr IV ONCE ONE Rx#:[id number] Output: Urine (ml) 1600 3700 550 Incontinence 900 1150 Urinal 700 2550 550 Other: Weight 128.866 kg 127.913 kg Intake Quantity Yes Yes Sufficient Number of Voids Incontinence 1 1 Urinal 1 Number of Stools Incontinence 1 Result Diagrams: 08/31/17 10:25 09/04/17 03:20 - Physical Exam Constitutional: obese Eyes: anicteric sclera Ears, Nose, Mouth, Throat: moist mucous membranes Cardiovascular: no murmurs, no rubs, no gallops, irregularly irregular, other ( dense, pitting edema to mid thigh bilaterally. ) Respiratory: clear to auscultate bilat Skin: other (oozing lesions from LE bilat ) Neurologic: AAOx3, CN II-XII grossly intact Psychiatric: cooperative, interactive ICD10 Worksheet Patient Problems: Problems Problem Status Onset Atrial fibrillation Acute Dehydration Acute Weakness Acute chronic disease mgmt/transitional care Acute
--- NOTE | 2017-09-04 12:05 | HOSPPROG ---
Hospitalist Progress Note Assessment/Plan: # acute right sided diastolic CHF - weight and IOs down today - cont lasix gtt, aldactone - follow lytes closely and replete # paroxysmal a-fib with RVR - rate better today - cont metop - eliquis per cards for CHADSVasc=5 # carotid disease - cont asa/eliquis/statin # hypoMg - replete aggressively # hypoNa - follow with diuresis # CAD - asa/statin # pressure injury, POA - wound care # htn - hold arb, BB started # morbid obesity - BMI 38 # neuropathy - gabapentin # DM2 - cont metformin and glyburide, hold actos # encephalopathy - likely progression of underlying dementia; no focal findings to suggest CVA # dispo - inpatient; he desires to be discharged but is not medically ready; we discussed this today Subjective: asks when he can go hme; feels his edema is better Objective: Vital Signs Temp Pulse Resp BP Pulse Ox 37.0 C 89 15 139/78 H 94 09/04/17 11:15 09/04/17 11:15 09/04/17 11:15 09/04/17 11:15 09/04/17 11:15 Laboratory Results 09/04/17 03:20 09/03/17 09/04/17 09/05/17 05:59 05:59 05:59 Intake Total 1980 2080 350 Output Total 1600 3700 550 Balance 380 -1620 -200 high risk on lasix gtt - Physical Exam Constitutional: obese Cardiovascular: no murmur, rub, or gallop, irregularly irregular Respiratory: no respiratory distress, no rales or rhonchi, clear to auscultation Gastrointestinal: soft, non-tender abdomen, no palpable masses, No guarding, No rebound, No distension ICD10 Worksheet Patient Problems: Problems Problem Status Onset chronic disease mgmt/transitional care Acute Atrial fibrillation Acute Weakness Acute Dehydration Acute
--- NOTE | 2017-09-04 15:15 | ASMTCMCOM ---
CM Note CM Note Notes: Chart reviewed. Discussed patient status in rounds. Therapy recommending SNF rehab but concedes that with improvements, may be able to dc to home with HHC in place. Family aware of option to hire additional private care to assist with household issues and personal hygiene issues. Likely here the next two days. Diuresing and wound care as well as continued therapy. CM to follow. Plan : SNF versus home health care. Date Signed: 09/04/2017 03:14 PM Electronically Signed By:Mildred Kaplan RN
[2017-09-04] MEDS ORDERED: CALCIUM CARBONATE 500 MG CHEWABLE TAB PO PRN (15:31)
[2017-09-04] MEDS: PANTOPRAZOLE SODIUM 40 MG TAB PO SCH (16:59)
[2017-09-04] MEDS: METHENAMINE HIPP 1 GM TAB PO SCH (21:53)
[2017-09-04] MEDS: ASPIRIN 81 MG CHEWABLE TAB PO SCH (21:55)
[2017-09-04] MEDS: MAGNESIUM OXIDE 400 MG TAB PO SCH (21:55)
[2017-09-04] MEDS: MELATONIN 3 MG TAB PO SCH (21:55)
[2017-09-05] MEDS: FUROSEMIDE 100 MG in D5W 100 ML IV SCH ×3 (01:08→16:23)
[2017-09-05] MEDS ORDERED: MAGNESIUM SULF 2 GM/WATER 50 ML IV ONE (08:04)
[2017-09-05] MEDS: metFORMIN HCL 500 MG TAB PO SCH ×2 (08:39→20:39)
[2017-09-05] MEDS: TAMSULOSIN HCL 0.4 MG CAP PO SCH (08:40)
[2017-09-05] MEDS: MAGNESIUM OXIDE 400 MG TAB PO SCH ×2 (08:40→20:38)
[2017-09-05] MEDS: POTASSIUM CL 20 MEQ TAB PO SCH (08:40)
[2017-09-05] MEDS: SPIRONOLACTONE 25 MG TAB PO SCH (08:40)
[2017-09-05] MEDS: GABAPENTIN 400 MG CAP PO SCH ×2 (08:40→20:38)
[2017-09-05] MEDS: ATORVASTATIN CALCIUM 20 MG TAB PO SCH (08:40)
[2017-09-05] MEDS: APIXABAN 5 MG TAB PO SCH ×2 (08:40→20:38)
[2017-09-05] MEDS: glyBURIDE 5 MG TAB PO SCH ×2 (08:40→20:38)
[2017-09-05] MEDS: PANTOPRAZOLE SODIUM 40 MG TAB PO SCH (08:40)
[2017-09-05] MEDS: METOPROLOL TARTRATE 50 MG TAB PO SCH ×2 (08:52→20:39)
[2017-09-05] MEDS: ACETAMINOPHEN 325 MG TAB PO PRN (08:52)
--- NOTE | 2017-09-05 10:14 | PDCARPN ---
Cardiology Progress Note Chief Complaint: Patient reports he would like to go home. Assessment/Plan: Assessment: 67-year-old male with significant past cardiac history that includes CAD, previous CABG, type 2 diabetes, GERD, ERMELINDA, hypothyroidism. Admitted 09/01/2007 for shortness of breath, and increased weight gain, reporting 50 lb over the last month. Found to be new onset of atrial fibrillation with RVR. Laboratory studies drawn on admission showing BMP of 1010. Troponin levels have shown negative (0.034). Echocardiogram done on 08/31/2017 showing borderline concentric LVH, EF of 55%, are no regional wall the her LA is mildly to moderately dilated, mild MR, mild TR, normal pulmonary artery pressures. Patient initially started on bolus IV diuretics, and transitioned over to IV Lasix drip. Today: Patient's weight is down 2.8 kilos. He states improvement in peripheral edema, dyspnea on exertion. He remains in atrial fibrillation, but better rate control with increased dosage of metoprolol. Laboratory studies show hyponatremic at 132., but has been stable over the last few days. BUN 17, creatinine 0.8. Despite being put on oral supplement of magnesium oxide, patient's magnesium remains low at 1.4. He is also on magnesium IV replacement protocol. He denies of any chest pressure, pain, or symptoms suggesting of ischemia. Nursing staff informs me that bladder scan was done last evening, and patient was found to have 2400 mL residual, which he was straight cathed. They will plan on rechecking his residuals this morning. Patient states that he would like to go home, we have had a long discussion regarding his current medical status. I have told him he he will need to be continued on diuretic therapy. For at least a few more days. He is in agreement, Plan: 1. Acute on chronic right-sided heart failure with cor pulmonale: Patient continues to be fluid overloaded. Continue on IV Lasix drip. Continue Aldactone. Strict I&Os, continue monitoring electrolytes and renal function. 2. AFib with RVR: Better rate controlled on increased dose of metoprolol. Will hold off on digoxin at this time due to electrolyte abnormalities. As he becomes more euvolemic, consideration of patient undergoing NIKKY/cardioversion before discharge. Patient has been started on anticoagulation of Eliquis. 3. CAD: Denies of any chest pain or pressure symptoms suggesting of ischemia. Continue on anti-platelet therapy of aspirin. Secondary risk prevention with atorvastatin. 4. Hypomagnesium: Magnesium oxide as ordered. Supplemental IV magnesium per protocol. Continue to monitor. 5. Hyponatremia: Remained stable at 132. Continue to monitor. 6. Hypertension: Blood pressure well controlled on current medication regime. No changes at this time. 7. Urine retention: Plan on repeated bladder scan later today. If continue retention , consider urology consultation. 09/05/17 10:11 Subjective: He reports improvement in his shortness of breath, he has also seen a significant improvement in his peripheral swelling. He denies of any chest pressure or pain. Reporting no palpitations, lightheadedness, near-syncope or syncopal events. Reviewed/Discussed With: other (Dr Puga and Dr Troncoso) Objective: Vital Signs (8 Hrs) Temp Pulse Resp BP Pulse Ox 09/05/17 07:47 36.6 C 87 12 113/57 L 90 L 09/05/17 04:00 36.5 C 94 16 122/73 H 94 Intake/Output (24 Hrs) 09/04/17 09/05/17 09/06/17 05:59 05:59 05:59 Intake Total 2080 2187 114 Output Total 3700 6900 Balance -1620 -7947 114 Intake: Oral (ml) 1590 1850 IV Intake (ml) 220 IV Infused (ml) 270 337 114 Furosemide 100 mg In D5w 220 337 114 100 ml @ As Directed IV CONT ANIKA Rx#:[id number] Magnesium Sulf 2 gm/Water 50 50 ml @ 50 mls/hr IV ONCE ONE Rx#:[id number] Output: Urine (ml) 3700 6900 Catheter 2600 Incontinence 1150 Urinal 2550 4300 Other: Weight 127.913 kg 125.101 kg Intake Quantity Yes Sufficient Output Comment Catheter straight cath Number of Voids Incontinence 1 Urinal 1 Number of Stools Toilet 1 Bladder Scan Volume (ml) Toilet 565 Result Diagrams: 08/31/17 10:25 09/05/17 03:08 - Physical Exam Constitutional: no apparent distress, obese Ears, Nose, Mouth, Throat: moist mucous membranes Cardiovascular: no rubs, irregularly irregular ( Atrial fibrillation with rates varying between 80-110 BPM), jugular vein distention ( 5-6 cm above sternal notch at a 45 degree angle.), pulses symmetric bilat, No carotid bruit Peripheral Pulses: 1+: dorsalis-pedis (R), dorsalis-pedis (L), 2+: carotid (R), carotid (L) Respiratory: other ( Clear but diminished in bases bilateral, no rhonchi, rales , or wheezing noted, no accessory muscle use, no intercostal muscle retraction noted.) Gastrointestinal: no tenderness, no masses Skin: warm ( +3 peripheral edema bilateral lower extremities to knees, with open wounds that are draining serous fluid.), No no edema Neurologic: AAOx3 Psychiatric: cooperative, following commands ICD10 Worksheet Patient Problems: Problems Problem Status Onset chronic disease mgmt/transitional care Acute Atrial fibrillation Acute Weakness Acute Dehydration Acute
--- NOTE | 2017-09-05 10:29 | HOSPPROG ---
Hospitalist Progress Note Assessment/Plan: # acute right sided diastolic CHF - continues to diurese on lasix gtt, aldactone - cont lasix gtt, aldactone - follow lytes closely and replete # paroxysmal a-fib with RVR - rate controlled - cont metop - eliquis per cards for CHADSVasc=5 # carotid disease - cont asa/eliquis/statin # hypoMg - replete aggressively # hypoNa - follow with diuresis # CAD - asa/statin # urinary retention - 2.5L overnight; 900ml measured this am - alvarenga ordered - i will try to contact Dr Anglin's office regarding his previous w/u and treatment - cont flomax # pressure injury, POA - wound care # htn - hold arb, BB started # morbid obesity - BMI 38 # neuropathy - gabapentin # DM2 - cont metformin and glyburide, hold actos # encephalopathy - likely progression of underlying dementia; no focal findings to suggest CVA # dispo - inpatient; he is anxious for discharge but no ready Subjective: straigh cathed for about 2.5L overnight Objective: Vital Signs Temp Pulse Resp BP Pulse Ox 36.6 C 87 12 113/57 L 90 L 09/05/17 07:47 09/05/17 07:47 09/05/17 07:47 09/05/17 07:47 09/05/17 07:47 Laboratory Results 09/05/17 03:08 09/04/17 09/05/17 09/06/17 05:59 05:59 05:59 Intake Total 2080 2187 114 Output Total 3700 6900 Balance -3814 -2612 114 high risk on lasix gtt - Physical Exam Constitutional: obese Ears, Nose, Mouth, Throat: hearing normal Cardiovascular: regular rate and rhythym, no murmur, rub, or gallop, edema (3+ bilat LE to thigh) Respiratory: no respiratory distress, no rales or rhonchi, clear to auscultation Gastrointestinal: soft, non-tender abdomen, no palpable masses, No hepatosplenomegally, No guarding, No rebound ICD10 Worksheet Patient Problems: Problems Problem Status Onset chronic disease mgmt/transitional care Acute Atrial fibrillation Acute Weakness Acute Dehydration Acute
[2017-09-05] MEDS ORDERED: PROTOCOL POTASSIUM 1 DOSE MISC PRN (11:15)
--- NOTE | 2017-09-05 14:07 | ASMTCMCOM ---
CM Note CM Note Notes: 09/05/2017 Case Management Note Discussed pt during rounds this morning. Discussed pt with Transitional Care RN. Transitional Care will follow pt after d/c. Pt has been accepted by [facility]. Pt has also been accepted by [facility]. Case Management d/c poc: Home Care vs SNF rehab. Case Management to follow. Date Signed: 09/05/2017 02:07 PM Electronically Signed By:Katelyn Simental RN
[2017-09-05] MEDS ORDERED: METOLAZONE 2.5 MG TAB PO ONE (18:00)
[2017-09-05] MEDS: METHENAMINE HIPP 1 GM TAB PO SCH (20:37)
[2017-09-05] MEDS: MELATONIN 3 MG TAB PO SCH (20:38)
[2017-09-05] MEDS: ASPIRIN 81 MG CHEWABLE TAB PO SCH (20:39)
[2017-09-06] MEDS ORDERED: NS 250 ML IV ONE (02:44)
[2017-09-06] MEDS ORDERED: MAGNESIUM SULF 1 GM/DEXTROSE 100 ML IV ONE (08:12)
[2017-09-06] MEDS ORDERED: POTASSIUM CL 10 MEQ TAB PO ONE (08:13)
[2017-09-06] MEDS: GABAPENTIN 400 MG CAP PO SCH ×2 (09:07→20:51)
[2017-09-06] MEDS: glyBURIDE 5 MG TAB PO SCH ×2 (09:07→20:52)
[2017-09-06] MEDS: FUROSEMIDE 100 MG in D5W 100 ML IV SCH ×2 (09:07→20:50)
[2017-09-06] MEDS: metFORMIN HCL 500 MG TAB PO SCH ×2 (09:08→20:53)
[2017-09-06] MEDS: APIXABAN 5 MG TAB PO SCH ×2 (09:08→20:53)
[2017-09-06] MEDS: PANTOPRAZOLE SODIUM 40 MG TAB PO SCH (09:08)
[2017-09-06] MEDS: ATORVASTATIN CALCIUM 20 MG TAB PO SCH (09:08)
[2017-09-06] MEDS: TAMSULOSIN HCL 0.4 MG CAP PO SCH (09:09)
[2017-09-06] MEDS: METOPROLOL TARTRATE 50 MG TAB PO SCH ×2 (09:09→20:53)
[2017-09-06] MEDS: SPIRONOLACTONE 25 MG TAB PO SCH (09:09)
[2017-09-06] MEDS: MAGNESIUM OXIDE 400 MG TAB PO SCH ×2 (09:09→20:55)
[2017-09-06] MEDS: POTASSIUM CL 20 MEQ TAB PO SCH (09:11)
[2017-09-06] MEDS ORDERED: METOLAZONE 2.5 MG TAB PO ONE (10:28)
--- NOTE | 2017-09-06 13:13 | PDCARPN ---
Cardiology Progress Note Chief Complaint: patient reported episode of lightheadedness last evening. Assessment/Plan: Assessment: 67-year-old male with significant past cardiac history that includes CAD, previous CABG, type 2 diabetes, GERD, ERMELINDA, hypothyroidism. Admitted 09/01/2007 for shortness of breath, and increased weight gain, reporting 50 lb over the last month. Found to be new onset of atrial fibrillation with RVR. Laboratory studies drawn on admission showing BMP of 1010. Troponin levels have shown negative (0.034). Echocardiogram done on 08/31/2017 showing borderline concentric LVH, EF of 55%, are no regional wall the her LA is mildly to moderately dilated, mild MR, mild TR, normal pulmonary artery pressures. Patient initially started on bolus IV diuretics, and transitioned over to IV Lasix drip. Today: Nursing staff reports patient with episodes of hypotension last evening , with associated symptoms of lightheadedness. Near-syncope. Systolic blood pressure down in the 90s. Lasix drip discontinued, and given IV bolus of fluid. Improvement in pressure by for a.m.. Resumed IV Lasix drip at 10 mg minute around 7:30 a.m.. Patient reports no lightheadedness, palpitations, near -syncope or syncopal events. Patient's weight is down 2 and 0.5 kilos from yesterday. 2824 mL output. Laboratory studies show BUN 19, creatinine 0.9. Hyponatremia remained stable with sodium at 1:33 a.m.. Magnesium down to 1.5. Continues cardiac monitoring showing patient maintaining atrial fibrillation , rate variation between 60-100 BPM. No other malignant arrhythmias noted. Plan: 1. Acute on chronic right-sided heart failure with cor pulmonale: episode of lightheadedness and hypotension after metolazone and Lasix drip. Pressure recovery with fluid bolus. Resume Lasix drip at 7:00 a.m At 10 mg an hour. systolic blood pressure at the time of my examination while sitting was 119 , while standing 109. continue Lasix drip at 10 mg an hour , will hold a.m. metolazone dosage. continue Aldactone. 2. AFib with RVR: Adequate rate control on current dose of metoprolol tartrate. As he becomes more euvolemic, consideration of patient undergoing NIKYK/ cardioversion before discharge. Patient has been started on anticoagulation of Eliquis. 3. Lightheadedness /hypotension: Patient reporting episode of lightheadedness with hypotension with systolic in the 90s last evening. Lasix drip on hold throughout the night with small fluid bolus given to patient. Blood pressure within normal limits at this time. Resume Lasix strip as above. Continue to monitor 4. CAD: Denies of any chest pain or pressure symptoms suggesting of ischemia. Continue on anti-platelet therapy of aspirin. Secondary risk prevention with atorvastatin. 5. Hypomagnesium: Magnesium oxide as ordered. Supplemental IV magnesium per protocol. Continue to monitor. 6. Hyponatremia: Remained stable. Continue to monitor. 7. Hypertension: episode of hypotension last evening. Med changes as mentioned above. 8. Urine retention: Miller catheter inserted yesterday, due to ongoing retention. continue to have Miller in place while at continuous diuretic therapy. Dr. Diaz has contact patient Urologist. 09/06/17 13:07 Subjective: He denies of any chest pressure or pain. reports significant improvement in shortness of breath. Denies of any orthopnea, PND, near-syncope or syncopal events. Does report episode of lightheadedness last evening, with noted systolic blood pressure in the 90s. Temporary DC of Lasix therapy with fluid bolus with return of normal pressures. Reviewed/Discussed With: hospitalist (Dr Diaz), other (Dr Troncoso) Objective: Vital Signs (8 Hrs) Temp Pulse Resp BP Pulse Ox 09/06/17 11:23 36.8 C 74 18 129/63 H 93 09/06/17 07:16 36.8 C 101 H 18 154/76 H 92 09/06/17 06:11 89 14 137/68 H 93 Intake/Output (24 Hrs) 09/05/17 09/06/17 09/07/17 05:59 05:59 05:59 Intake Total 2187 2101 Output Total 6900 4925 675 Balance -3024 -2824 -675 Intake: Oral (ml) 1850 1750 IV Infused (ml) 337 351 Furosemide 100 mg In D5w 337 351 100 ml @ As Directed IV CONT ANIKA Rx#:[id number] Output: Urine (ml) 6900 4925 675 Catheter 2600 4375 675 Toilet 550 Urinal 4300 Other: Weight 125.101 kg 122.6 kg Output Comment Catheter straight cath Number of Voids Catheter 1 1 Number of Stools Toilet 1 Bladder Scan Volume (ml) Toilet 565 999 Result Diagrams: 08/31/17 10:25 09/06/17 03:34 - Physical Exam Constitutional: no apparent distress, obese Ears, Nose, Mouth, Throat: moist mucous membranes Cardiovascular: systolic murmur ( 1-2/6 systolic murmur noted along left sternal border.), irregularly irregular, jugular vein distention ( 5-6 cm above sternal notch at a 90 degree angle.), pulses symmetric bilat, No carotid bruit Peripheral Pulses: 1+: dorsalis-pedis (R), dorsalis-pedis (L), 2+: carotid (R), carotid (L) Respiratory: other ( Diminished in bases bilateral, no rhonchi, rales, or wheezing noted. No accessory muscle use, no intercostal muscle retraction noted.) Gastrointestinal: normoactive bowel sounds, no masses Skin: warm, other ( Multiple dressings on bilateral lower extremities better clean dry and tract with no signs of infection), No no edema ( +3 peripheral edema bilateral lower extremities to thighs.) Neurologic: AAOx3 Psychiatric: cooperative, interactive, following commands ICD10 Worksheet Patient Problems: Problems Problem Status Onset chronic disease mgmt/transitional care Acute Atrial fibrillation Acute Weakness Acute Dehydration Acute
--- NOTE | 2017-09-06 13:32 | HOSPPROG ---
Hospitalist Progress Note Assessment/Plan: # acute right sided diastolic CHF - overdiuresed yesterday - was hypotensive but improved with small bolus; use caution with metolazone - cont lasix gtt today at rate of 10mg/hr - cont aldactone - follow lytes closely and replete # paroxysmal a-fib with RVR - rate controlled - cont metop - eliquis per cards for CHADSVasc=5 # carotid disease - cont asa/eliquis/statin # hypoMg - replete aggressively # hypoNa - follow with diuresis # CAD - asa/statin # urinary retention - 2.5L in bladder - alvarenga placed - discussed with Karon Soriano - Dr Anglin had recommended TURP previously; - he will need to be discharged with the alvarenga and follow up with Dr Anglin - cont flomax # pressure injury, POA - wound care # htn - hold arb, BB started # morbid obesity - BMI 38 # neuropathy - gabapentin # DM2 - cont metformin and glyburide, hold actos # encephalopathy - likely progression of underlying dementia; no focal findings to suggest CVA # dispo - inpatient; he is anxious for discharge but not ready; his daughter Marge is very involved Subjective: hypotensive and dizzy overnight; improved with a small NS bolus Objective: Vital Signs Temp Pulse Resp BP Pulse Ox 36.8 C 74 18 129/63 H 93 09/06/17 11:23 09/06/17 11:23 09/06/17 11:23 09/06/17 11:23 09/06/17 11:23 Microbiology 08/31/17 12:50 Blood Culture - Final Blood 08/31/17 13:05 Blood Culture - Final Blood Laboratory Results 09/06/17 03:34 09/05/17 09/06/17 09/07/17 05:59 05:59 05:59 Intake Total 2187 2101 Output Total 5957 0848 202 [facility] -[phone] -149 discussed with Arturo wells personally reviewed - Physical Exam Constitutional: no apparent distress, appears nourished Cardiovascular: no murmur, rub, or gallop, irregularly irregular, other (3+ bilat LE edema to thighs) Respiratory: no respiratory distress, no rales or rhonchi Gastrointestinal: normoactive bowel sounds, soft, non-tender abdomen, no palpable masses ICD10 Worksheet Patient Problems: Problems Problem Status Onset chronic disease mgmt/transitional care Acute Atrial fibrillation Acute Weakness Acute Dehydration Acute
--- NOTE | 2017-09-06 14:56 | WOCRNPDOC ---
ROBBIN Advanced Assessment Note - Skin Integrity Problem, Advanced Assess Left Lower Sacrum Pressure Injury Dressing Type: Open to Air Exudate Color: Reddish/Yellow Exudate Characteristic(s): Serosanguinous Sakina Wound Tissue: Blanching, Erythema, Swollen Sakina Wound Swelling: Mild Wound Bed Color: [place], Red, Yellow Wound Bed Constitution: Red/[place] - Non Granular Tissue (25%), Adhered Slough (75 %) Wound Edges: Attached, Irregular Site Measurement - Head-to-Toe Length X Width X Depth (cm): 1.2x0.9x0.2 Pressure Injury Stage: Unstageable Pressure Injury Present on Admit: Yes Skin Integrity Problem Comment: Unstageable pressure injury POA with little improvement since last visit. Patient stood up for assessment with help of KARRI Rankin and KARRI Bermeo Wound Care Team. KARRI Rankin stated that mepilex and Allevyn dressings roll up due to patient constantly sliding in chair and scooting back, and that 5 dressings had been applied in 1 day. Replicare dressing not available in room and was not in place on patient, unclear if honey had been applied. KARRI Rankin stated that patient refused bariatric mattress that had been ordered because his feet pressed against the footboard. Education provided to patient and his daughter about the need to use pressure redistribution chair cushion. Questions from patient and patient's daughter about wounds answered. Wound care will round again on Tuesday. Right Lower Sacrum Pressure Injury Dressing Type: Allevyn Life Exudate Amount: Minimal Exudate Color: Reddish/Yellow Exudate Characteristic(s): Serosanguinous Integumentary Issue Intervention: Dressing Removed Sakina Wound Tissue: Blanching, Erythema, Swollen, Painful/Tender Sakina Wound Swelling: Mild Wound Bed Color: Yellow, White Wound Bed Constitution: Adhered Slough (100%) Wound Edges: Attached, Irregular Site Measurement - Head-to-Toe Length X Width X Depth (cm): 0.3x0.7x0.2 Pressure Injury Stage: Unstageable Pressure Injury Present on Admit: Yes Skin Integrity Problem Comment: Pressure injury POA with no improvement from previous visit. Allevyn life dressing was over wound, but honey not visible on wound bed, and no replicare dressing found. Wound care will round again later this week. Proximal Coccyx Pressure Injury Dressing Type: Open to Air Exudate Amount: None Sakina Wound Tissue: Blanching, Erythema, Swollen, Painful/Tender Sakina Wound Swelling: Mild Wound Bed Constitution: Red/[place] - Non Granular Tissue (100%) Site Measurement - Head-to-Toe Length X Width X Depth (cm): 0.6x0.3x0.1 Pressure Injury Stage: Stage 2 Pressure Injury Present on Admit: Yes Skin Integrity Problem Comment: Pressure injury POA is improved since last visit. No slough noted. Wound care will round again later this week. Distal Coccyx Pressure Injury Dressing Type: Open to Air Skin Integrity Problem Comment: Unable to visualize wound due to patient unable to stand for extended amount of time needed for assessment. Wound care will round again later this week.
[2017-09-06] MEDS: ACETAMINOPHEN 325 MG TAB PO PRN (20:52)
[2017-09-06] MEDS: ASPIRIN 81 MG CHEWABLE TAB PO SCH (20:53)
[2017-09-06] MEDS: METHENAMINE HIPP 1 GM TAB PO SCH (20:55)
[2017-09-06] MEDS: MELATONIN 3 MG TAB PO SCH (20:55)
[2017-09-07] MEDS ORDERED: MAGNESIUM SULF 2 GM/WATER 50 ML IV ONE (05:00)
[2017-09-07] MEDS ORDERED: POTASSIUM CL 10 MEQ TAB PO ONE (08:02)
[2017-09-07] MEDS: metFORMIN HCL 500 MG TAB PO SCH ×2 (08:14→21:32)
[2017-09-07] MEDS: METOPROLOL TARTRATE 50 MG TAB PO SCH ×2 (08:14→21:32)
[2017-09-07] MEDS: SPIRONOLACTONE 25 MG TAB PO SCH (08:14)
[2017-09-07] MEDS: APIXABAN 5 MG TAB PO SCH ×2 (08:15→21:32)
[2017-09-07] MEDS: TAMSULOSIN HCL 0.4 MG CAP PO SCH (08:15)
[2017-09-07] MEDS: MAGNESIUM OXIDE 400 MG TAB PO SCH ×2 (08:15→21:31)
[2017-09-07] MEDS: ATORVASTATIN CALCIUM 20 MG TAB PO SCH (08:15)
[2017-09-07] MEDS: GABAPENTIN 400 MG CAP PO SCH ×2 (08:15→21:31)
[2017-09-07] MEDS: PANTOPRAZOLE SODIUM 40 MG TAB PO SCH (08:15)
[2017-09-07] MEDS: glyBURIDE 5 MG TAB PO SCH ×2 (08:16→21:31)
[2017-09-07] MEDS: POTASSIUM CL 20 MEQ TAB PO SCH (08:16)
[2017-09-07] MEDS: FUROSEMIDE 100 MG in D5W 100 ML IV SCH ×3 (10:52→23:15)
[2017-09-07] MEDS ORDERED: LACTULOSE 20 GM/30 ML UDCUP PO PRN (11:56)
[2017-09-07] MEDS ORDERED: BISACODYL 10 MG SUPP PR PRN (11:56)
[2017-09-07] MEDS ORDERED: POLYETHYLENE GLYCOL 3350 17 GM PKT PO PRN (11:56)
[2017-09-07] MEDS ORDERED: MAGNESIUM HYDROXIDE 30 ML UDCUP PO PRN (11:56)
--- NOTE | 2017-09-07 12:24 | ASMTCMCOM ---
CM Note CM Note Notes: 09/07/2017 Case Management Note Discussed pt during rounds this morning. Met w/pt afterwards. Pt is refusing SNF. Pt lacks insight into abilities to safely return home. Pt has been accepted by [facility]. [facility] has also accepted the patient. Case Management feels this is the most appropriate d/c given pt wound care requirements and lack of strength for ambulation without assistance. Case Management d/c poc: to be determined. Case Management to follow. Date Signed: 09/07/2017 12:24 PM Electronically Signed By:Katelyn Simental RN
--- NOTE | 2017-09-07 13:28 | PDCARPN ---
Cardiology Progress Note Chief Complaint: Patient reports he is tired of being in the hospital. Assessment/Plan: Assessment: 67-year-old male with significant past cardiac history that includes CAD, previous CABG, type 2 diabetes, GERD, ERMELINDA, hypothyroidism. Admitted 09/01/2007 for shortness of breath, and increased weight gain, reporting 50 lb over the last month. Found to be new onset of atrial fibrillation with RVR. Laboratory studies drawn on admission showing BMP of 1010. Troponin levels have shown negative (0.034). Echocardiogram done on 08/31/2017 showing borderline concentric LVH, EF of 55%, are no regional wall the her LA is mildly to moderately dilated, mild MR, mild TR, normal pulmonary artery pressures. Patient initially started on bolus IV diuretics, and transitioned over to IV Lasix drip. Today: Patient reports improvement of breath. He is in atrial fibrillation with no malignant arrhythmias by continuous awake overnight monitor. Improvement in lower extremity peripheral edema. Patient is down a total of 7.6 kilos since hospital admission. Continues to experience +3 lower extremity edema to knees. Laboratory studies show mildly decreased in sodium at 131, potassium is 3.4, BUN elevated mildly at 24, creatinine 0.9, magnesium at 1.4. Plan: 1. Acute on chronic right-sided heart failure with cor pulmonale: Total weight loss on IV diuresis 7.6 kilos since hospital admission. Improvement in peripheral edema and dyspnea on exertion. Planned continue on IV Lasix drip at 10 mg an hour for another 24 hr, with consideration transitioning him over to torsemide tomorrow. Continue on Aldactone. Monitor electrolyte and renal function. 2. AFib with RVR: Adequate rate control on current dose of metoprolol tartrate. Patient has been started on anticoagulation of Eliquis. With his improvement with diuresis, we will consider doing NIKKY cardioversion of this week. 3. Lightheadedness /hypotension: No for further episodes overnight. 4. CAD: Denies of any chest pain or pressure symptoms suggesting of ischemia. Continue on anti-platelet therapy of aspirin. Secondary risk prevention with atorvastatin. 5. Hypomagnesium: Magnesium oxide as ordered. Supplemental IV magnesium per protocol. Continue to monitor. 6. Hyponatremia: Slightly decreased in yesterday. Will continue to monitor. 7. Hypertension: episode of hypotension last evening. Med changes as mentioned above. 8. Urine retention: Alvarenga catheter inserted yesterday, due to ongoing retention. Plan for fully to be left in on upon discharge, patient to follow up with Urology as an outpatient. 09/07/17 13:25 Subjective: He reports improvement in peripheral edema, dyspnea on exertion. Reports no chest pressure or pain. Denies of any palpitations. Reports no further episodes of lightheadedness. Reviewed/Discussed With: hospitalist (Dr Lezama), other (Dr Troncoso) Objective: Vital Signs (8 Hrs) Temp Pulse Resp BP Pulse Ox 09/07/17 11:20 36.9 C 95 113/52 L 91 L 09/07/17 08:00 36.8 C 103 H 18 133/80 H 93 Intake/Output (24 Hrs) 09/06/17 09/07/17 09/08/17 05:59 05:59 05:59 Intake Total 2101 2340 1110 Output Total 4925 5625 1200 Balance -2824 -3285 -90 Intake: Oral (ml) 1750 1980 1000 IV Intake (ml) 25 IV Infused (ml) 351 335 110 Furosemide 100 mg In D5w 351 180 110 100 ml @ As Directed IV CONT ANIKA Rx#:[id number] Magnesium Sulf 1 gm/ 105 Dextrose 100 ml @ 100 mls /hr IV ONCE ONE Rx#: [id number] Magnesium Sulf 2 gm/Water 50 50 ml @ 50 mls/hr IV ONCE ONE Rx#:[id number] Output: Urine (ml) 4925 5625 1200 Catheter 4375 5625 1200 Toilet 550 Other: Weight 122.6 kg 118.5 kg Intake Quantity Yes Sufficient Number of Voids Catheter 1 1 Bladder Scan Volume (ml) Toilet 999 Result Diagrams: 08/31/17 10:25 09/07/17 03:38 - Physical Exam Constitutional: no apparent distress, obese Ears, Nose, Mouth, Throat: moist mucous membranes Cardiovascular: no rubs, irregularly irregular (AFib on with adequate rate control on monitor.), jugular vein distention (5 cm above sternal notch at a 90 degree angle), pulses symmetric bilat, No carotid bruit Peripheral Pulses: 1+: dorsalis-pedis (R), dorsalis-pedis (L), 2+: carotid (R), carotid (L) Respiratory: other (Lungs are clear to bilateral common rhonchi, rales, or wheezing noted.) Gastrointestinal: normoactive bowel sounds Genitourinary: alvarenga in urethra Skin: other (Current blood dressings to both lower extremities all clean dry and intact without signs of infection), No no edema (+3 peripheral edema bilateral lower extremities to knees.) Neurologic: AAOx3 Psychiatric: cooperative, following commands ICD10 Worksheet Patient Problems: Problems Problem Status Onset chronic disease mgmt/transitional care Acute Atrial fibrillation Acute Weakness Acute Dehydration Acute
--- NOTE | 2017-09-07 13:49 | HOSPPROG ---
Hospitalist Progress Note Assessment/Plan: 67 yo M w weight gain and weakness acute right sided diastolic CHF - overdiuresed yesterday - was hypotensive but improved with small bolus; use caution with metolazone - cont lasix gtt today at rate of 10mg/hr - cont aldactone - follow lytes closely and replete paroxysmal a-fib with RVR - rate controlled - cont metop - eliquis per cards for CHADSVasc=5 carotid disease - cont asa/eliquis/statin hypoMg - replete aggressively hypoNa - follow with diuresis CAD - asa/statin urinary retention - 2.5L in bladder - alvarenga placed - discussed with Karon Soriano - Dr Anglin had recommended TURP previously; - he will need to be discharged with the alvarenga and follow up with Dr Anglin - cont flomax pressure injury, POA - wound care htn - hold arb, BB started morbid obesity - BMI 38 neuropathy - gabapentin DM2 - cont metformin and glyburide, hold actos encephalopathy - likely progression of underlying dementia; no focal findings to suggest CVA 09/07- appears resolved # dispo - inpatient; he is anxious for discharge but not ready; his daughter Marge is very involved Subjective: case d/w savanah tyler, cardiology [employer] Objective: Vital Signs Temp Pulse Resp BP Pulse Ox 36.9 C 95 18 113/52 L 91 L 09/07/17 11:20 09/07/17 11:20 09/07/17 08:00 09/07/17 11:20 09/07/17 11:20 Laboratory Results 09/07/17 03:38 09/06/17 09/07/17 09/08/17 05:59 05:59 05:59 Intake Total 2101 2340 1110 Output Total 6014 5698 1200 Balance -2824 -3285 -90 - Physical Exam Constitutional: no apparent distress, appears nourished Eyes: PERRL, anicteric sclera Ears, Nose, Mouth, Throat: moist mucous membranes, hearing normal Cardiovascular: regular rate and rhythym, no murmur, rub, or gallop, edema Respiratory: no respiratory distress, no rales or rhonchi Gastrointestinal: normoactive bowel sounds, soft, non-tender abdomen Genitourinary: No alvarenga in urethra Skin: warm, normal color Musculoskeletal: full muscle strength Neurologic: AAOx3 ICD10 Worksheet Patient Problems: Problems Problem Status Onset Atrial fibrillation Acute Dehydration Acute Weakness Acute chronic disease mgmt/transitional care Acute
[2017-09-07] MEDS ORDERED: MAGNESIUM SULF 1 GM/DEXTROSE 100 ML IV ONE (18:16)
[2017-09-07] MEDS: SENNOSIDES/DOCUSATE SODIUM TAB PO SCH (21:31)
[2017-09-07] MEDS: METHENAMINE HIPP 1 GM TAB PO SCH (21:31)
[2017-09-07] MEDS: ASPIRIN 81 MG CHEWABLE TAB PO SCH (21:32)
[2017-09-07] MEDS: MELATONIN 3 MG TAB PO SCH (21:32)
[2017-09-08] MEDS ORDERED: TORSEMIDE 20 MG TAB PO SCH (09:00)
[2017-09-08] MEDS: APIXABAN 5 MG TAB PO SCH ×2 (09:20→21:31)
[2017-09-08] MEDS: POTASSIUM CL 20 MEQ TAB PO SCH (09:20)
[2017-09-08] MEDS: ATORVASTATIN CALCIUM 20 MG TAB PO SCH (09:20)
[2017-09-08] MEDS: metFORMIN HCL 500 MG TAB PO SCH ×2 (09:20→21:31)
[2017-09-08] MEDS: GABAPENTIN 400 MG CAP PO SCH ×2 (09:20→21:30)
[2017-09-08] MEDS: MAGNESIUM OXIDE 400 MG TAB PO SCH ×2 (09:21→21:28)
[2017-09-08] MEDS: TAMSULOSIN HCL 0.4 MG CAP PO SCH (09:21)
[2017-09-08] MEDS: glyBURIDE 5 MG TAB PO SCH ×2 (09:21→21:30)
[2017-09-08] MEDS: METOPROLOL TARTRATE 50 MG TAB PO SCH ×2 (09:21→21:29)
[2017-09-08] MEDS: PANTOPRAZOLE SODIUM 40 MG TAB PO SCH (09:21)
[2017-09-08] MEDS: SPIRONOLACTONE 25 MG TAB PO SCH (09:21)
[2017-09-08] MEDS: SENNOSIDES/DOCUSATE SODIUM TAB PO SCH ×2 (09:26→21:30)
--- NOTE | 2017-09-08 10:41 | PDCARPN ---
Cardiology Progress Note Chief Complaint: Patient reports fatigue, and would like to go home. Assessment/Plan: Assessment: 67-year-old male with significant past cardiac history that includes CAD, previous CABG, type 2 diabetes, GERD, ERMELINDA, hypothyroidism. Admitted 09/01/2007 for shortness of breath, and increased weight gain, reporting 50 lb over the last month. Found to be new onset of atrial fibrillation with RVR. Laboratory studies drawn on admission showing BMP of 1010. Troponin levels have shown negative (0.034). Echocardiogram done on 08/31/2017 showing borderline concentric LVH, EF of 55%, are no regional wall the her LA is mildly to moderately dilated, mild MR, mild TR, normal pulmonary artery pressures. Patient initially started on bolus IV diuretics, and transitioned over to IV Lasix drip. Today: Patient reports no chest pain, symptoms suggesting of ischemia. Reports improvement in shortness of breath. Continues to have improvement in peripheral edema. O>I. Patient's weight is down at 1 more kilos from yesterday. Laboratory studies showing sodium 130, chloride 84, BUN 26, creatinine 1.0. Potassium and magnesium both within normal limits today. Continuous cardiac monitoring shows that he continues to be in atrial fibrillation with well rate controlled. Rates varying between 84-113 BPM. No malignant arrhythmias or pauses noted. Plan: 1. Acute on chronic right-sided heart failure with cor pulmonale: Continues to make progress with weight loss and diuresis. Chloride in sodium down. At this time, will transition him over to torsemide, 60 mg p.o. Twice daily. Continue monitoring daily weights. Continue monitoring electrolytes daily. 2. AFib with RVR: Adequate rate control on current dose of metoprolol tartrate. Patient has been started on anticoagulation of Eliquis. Patient will be made NPO after midnight, plan on NIKKY cardioversion in a.m. with Dr. Troncoso. 3. Lightheadedness /hypotension: No further episodes. 4. CAD: Denies of any chest pain or pressure symptoms suggesting of ischemia. Continue on anti-platelet therapy of aspirin. Secondary risk prevention with atorvastatin. 5. Hypomagnesium: Magnesium oxide as ordered. Supplemental IV magnesium per protocol. Continue to monitor. 6. Hyponatremia: Sodium 130 today, continues to drop. Diuretic change as above. Fluid restriction. 7. Hypertension: Blood pressure within normal limits. No changes at this time. 8. Urine retention: Miller catheter inserted yesterday, due to ongoing retention. Plan for fully to be left in on upon discharge, patient to follow up with Urology as an outpatient. 09/08/17 10:37 Subjective: He reports no chest pain or pressure. Denies of any increased shortness of breath. Denies of any lightheadedness, near-syncope, or syncopal events. Reports no palpitations. Reviewed/Discussed With: hospitalist (Dr Lezama), other (Dr Troncoso) Objective: Vital Signs (8 Hrs) Temp Pulse Resp BP Pulse Ox 09/08/17 06:58 36.9 C 105 H 20 103/72 97 09/08/17 03:25 36.8 C 93 16 121/84 H 100 Intake/Output (24 Hrs) 09/07/17 09/08/17 09/09/17 05:59 05:59 05:59 Intake Total 2340 2337 550 Output Total 5625 2780 Balance -6295 -443 550 Intake: Oral (ml) 1980 1999 550 IV Intake (ml) 25 IV Infused (ml) 335 337 Furosemide 100 mg In D5w 180 237 100 ml @ As Directed IV CONT ANIKA Rx#:[id number] Magnesium Sulf 1 gm/ 105 Dextrose 100 ml @ 100 mls /hr IV ONCE ONE Rx#: [id number] Magnesium Sulf 1 gm/ 100 Dextrose 100 ml @ 100 mls /hr IV ONCE ONE Rx#: [id number] Magnesium Sulf 2 gm/Water 50 50 ml @ 50 mls/hr IV ONCE ONE Rx#:[id number] Output: Urine (ml) 5625 2780 Catheter 5625 2780 Other: Weight 122.6 kg 117.6 kg Intake Quantity Yes Yes Sufficient Number of Voids Catheter 1 Number of Stools Toilet 1 Result Diagrams: 08/31/17 10:25 09/08/17 03:23 - Physical Exam Constitutional: no apparent distress, obese, other (Elderly male) Ears, Nose, Mouth, Throat: moist mucous membranes Cardiovascular: no murmurs (1 to 2/6 systolic left sternal border), irregularly irregular (AFib with adequate rate control.), jugular vein distention (4-5 cm above sternal notch), pulses symmetric bilat, No carotid bruit Peripheral Pulses: 1+: dorsalis-pedis (R), dorsalis-pedis (L), 2+: carotid (R), carotid (L) Respiratory: clear to auscultate bilat, no crackles, no wheezes, No reduced air movement Gastrointestinal: normoactive bowel sounds Skin: warm, other (Multiple dressings to both lower extremities, all clean dry and intact without any signs of infection.), No no edema (+3 peripheral edema bilateral lower extremities to knees.) Neurologic: AAOx3 Psychiatric: cooperative, interactive, following commands ICD10 Worksheet Patient Problems: Problems Problem Status Onset chronic disease mgmt/transitional care Acute Atrial fibrillation Acute Weakness Acute Dehydration Acute
[2017-09-08] MEDS: TORSEMIDE 20 MG TAB PO SCH (14:55)
--- NOTE | 2017-09-08 15:48 | ASMTCMCOM ---
CM Note CM Note Notes: Pts case discussed in morning rounds. Pt will have a NIKKY and cardioversion tomorrow. CM met w/ pt and Marge daughter for dispo planning. Pt reports that he will need to think about going to SNF. Pt reports that in an ideal world he would like to d/c home w/ HC. CM to follow. Plan: TBD Date Signed: 09/08/2017 03:47 PM Electronically Signed By:MARK Mckeon
--- NOTE | 2017-09-08 17:20 | HOSPPROG ---
Hospitalist Progress Note Assessment/Plan: 67 yo M w weight gain and weakness acute right sided diastolic CHF - now on torsemide 10 kg down paroxysmal a-fib with RVR - rate controlled - cont metop - eliquis per cards for CHADSVasc=5 carotid disease - cont asa/eliquis/statin hypoMg - replete aggressively hypoNa - follow with diuresis CAD - asa/statin urinary retention - 2.5L in bladder - alvarenga placed - discussed with Karon Soriano - Dr Anglin had recommended TURP previously; - he will need to be discharged with the alvarenga and follow up with Dr Anglin - cont flomax pressure injury, POA - wound care htn - hold arb, BB started morbid obesity - BMI 38 neuropathy - gabapentin DM2 - cont metformin and glyburide, hold actos encephalopathy - likely progression of underlying dementia; no focal findings to suggest CVA 09/07- appears resolved # dispo - inpatient; he is anxious for discharge but not ready; his daughter Marge is very involved Subjective: case d/w savanahricky scott, cardiology [employer]. discussed dc to SNF Objective: Vital Signs Temp Pulse Resp BP Pulse Ox 36.6 C 106 H 16 134/77 H 91 L 09/08/17 16:00 09/08/17 16:00 09/08/17 16:00 09/08/17 16:00 09/08/17 16:00 Laboratory Results 09/08/17 03:23 09/07/17 09/08/17 09/09/17 05:59 05:59 05:59 Intake Total 2340 2337 1050 Output Total 3889 9003 1550 Balance -8035 -443 -500 - Physical Exam Constitutional: no apparent distress, appears nourished Eyes: PERRL, anicteric sclera Ears, Nose, Mouth, Throat: moist mucous membranes, hearing normal Cardiovascular: regular rate and rhythym, no murmur, rub, or gallop Respiratory: no respiratory distress, no rales or rhonchi Gastrointestinal: normoactive bowel sounds, soft, non-tender abdomen Genitourinary: no bladder fullness, alvarenga in urethra Skin: warm Musculoskeletal: No full muscle strength Neurologic: AAOx3 ICD10 Worksheet Patient Problems: Problems Problem Status Onset Atrial fibrillation Acute Dehydration Acute Weakness Acute chronic disease mgmt/transitional care Acute
[2017-09-08] MEDS: MELATONIN 3 MG TAB PO SCH (21:29)
[2017-09-08] MEDS: ASPIRIN 81 MG CHEWABLE TAB PO SCH (21:29)
[2017-09-08] MEDS: METHENAMINE HIPP 1 GM TAB PO SCH (21:31)
[2017-09-09 04:15] LABS: INR 1.69 (0.83-1.16)
[2017-09-09] MEDS ORDERED: NS 1,000 ML IV ONE (06:00)
[2017-09-09] MEDS ORDERED: ATROPINE SULFATE 1 MG/10 ML SYR IVP ONE (06:00)
[2017-09-09] MEDS: metFORMIN HCL 500 MG TAB PO SCH ×2 (08:10→20:43)
[2017-09-09] MEDS: TORSEMIDE 20 MG TAB PO SCH (08:11)
[2017-09-09] MEDS: GABAPENTIN 400 MG CAP PO SCH ×2 (08:11→20:43)
[2017-09-09] MEDS: SPIRONOLACTONE 25 MG TAB PO SCH (08:11)
[2017-09-09] MEDS: TAMSULOSIN HCL 0.4 MG CAP PO SCH (08:11)
[2017-09-09] MEDS: ATORVASTATIN CALCIUM 20 MG TAB PO SCH (08:11)
[2017-09-09] MEDS: METOPROLOL TARTRATE 50 MG TAB PO SCH ×2 (08:11→20:43)
[2017-09-09] MEDS: PANTOPRAZOLE SODIUM 40 MG TAB PO SCH (08:11)
[2017-09-09] MEDS: SENNOSIDES/DOCUSATE SODIUM TAB PO SCH ×2 (08:11→20:44)
[2017-09-09] MEDS: glyBURIDE 5 MG TAB PO SCH ×2 (08:11→20:43)
[2017-09-09] MEDS: APIXABAN 5 MG TAB PO SCH ×2 (08:11→20:42)
[2017-09-09] MEDS: MAGNESIUM OXIDE 400 MG TAB PO SCH ×2 (08:12→20:44)
[2017-09-09] MEDS: POTASSIUM CL 20 MEQ TAB PO SCH (08:12)
--- NOTE | 2017-09-09 08:47 | CPEKG ---
Heart Rate: 101 RR Interval: 594 QRSD Interval: 104 QT Interval: 376 QTC Interval: 488 QRS [place]: 123 T Wave [place]: -46 EKG Severity - ABNORMAL ECG - EKG Impression: ATRIAL FIBRILLATION, V-RATE 80-129 EKG Impression: RIGHT AXIS DEVIATION EKG Impression: BORDERLINE PROLONGED QT INTERVAL EKG Impression: COMPARED WITH 08/21/2017 AXIS HAS SHIFTED RIGHTWARD Electronically Signed By: Shala Fields 10-Sep-2017 10:15:21
[2017-09-09] MEDS ORDERED: MAGNESIUM SULF 1 GM/DEXTROSE 100 ML IV ONE (09:18)
--- NOTE | 2017-09-09 10:31 | PDANEPAE ---
ANE History of Present Illness Patient presents for NIKKY/cardioversion ANE Past Medical History - Cardiovascular History Hx Arrhythmias: Yes Hx Coronary Artery / Peripheral Vascular Disease: Yes Hx CHF / Valvular Disease: Yes Cardiovascular History Comment: S/P triple bypass - Pulmonary History Hx Oxygen in Use at Home: No Hx Sleep Apnea: Yes - Endocrine History Hx Diabetes: Yes - Chronic Pain History Chronic Pain: No ANE Review of Systems Review of Systems: - Exercise capacity Exercise capacity: <4 METS ANE Patient History - Allergies Allergies/Adverse Reactions: No Known Allergies Allergy (Verified 08/31/17 10:56) - Home Medications Home medications: home medication list seen and reviewed Home Medications: Aspirin [Aspirin 81mg (*)] 162 mg PO HS 08/31/17 [Last Taken 08/30/17] Atorvastatin Calcium [Lipitor 20 mg (*)] 20 mg PO DAILY 08/31/17 [Last Taken ] Gabapentin [Neurontin 400 MG (*)] 1,200 mg PO BID 08/31/17 [Last Taken 08/31/17] Losartan Potassium [Cozaar 50 mg (*)] 50 mg PO DAILY 08/31/17 [Last Taken ] Methenamine Mandelate [METHENAMINE MANDELATE] 0.5 gm PO HS 08/31/17 [Last Taken 08/30/17] Pioglitazone HCl [Actos] 45 mg PO DAILY 08/31/17 [Last Taken 08/31/17] Tamsulosin HCl [Flomax 0.4 MG (*)] 0.4 mg PO DAILY 08/31/17 [Last Taken 08/31/17 ] glyBURIDE [Glyburide] 10 mg PO BID 08/31/17 [Last Taken 08/31/17] metFORMIN HCL [Glucophage 500 mg (*)] 1,000 mg PO BID 08/31/17 [Last Taken 08/31] - NPO status NPO Status: no food or drink >8 hours - Smoking Hx Smoking Status: Former smoker - Alcohol Use Alcohol Use: Occasionally (2 alcoholic beverages on the night prior to presentation, no history of withdrawal) ANE Labs/Vital Signs - Labs Result Diagrams: 08/31/17 10:25 09/09/17 03:20 - Vital Signs Blood Pressure: 115/64 Heart Rate: 101 Respiratory Rate: 16 O2 Sat (%): 92 Height: 180.34 cm Weight: 119.3 kg ANE Physical Exam - Airway Neck exam: decreased ROM Mallampati Score: Class 3 - Pulmonary Pulmonary: no respiratory distress - Cardiovascular Cardiovascular: irregularly irregular - ASA Status ASA Status: III ANE Anesthesia Plan Anesthesia Plan: GA with mask (RBA discussed)
[2017-09-09] MEDS ORDERED: PROPOFOL 200 MG/20 ML VIAL ONE (10:32)
[2017-09-09] MEDS ORDERED: ATROPINE SULFATE 1 MG/10 ML SYR ONE (11:03)
--- NOTE | 2017-09-09 11:12 | PDHPUP ---
History & Physical Update H&P update statement: This history and physical update is based on an assessment of the patient which was completed after admission or registration (within 24 hours), but prior to the surgery/procedure. H&P update: H&P reviewed & patient examined, no change in patient's condition since H&P completed
--- NOTE | 2017-09-09 11:26 | PDTEE1 ---
NIKKY Cardioversion Procedure Procedure: electrical cardioversion Indications: atrial fibrillation Consent: signed and in chart Anticoagulation: eliquis Procedural Details: Pads were placed in anterior-posterior position. NIKKY probe was advanced and standard images obtained. There is no evidence of left atrial or left atrial appendage thrombus. Synchronized cardioversion attempt #1: 200J Synchronized cardioversion attempt #2: 300J Results: normal sinus rhythm Conclusions: successful NIKKY cardioversion (The patinet lapsed back to AFIB after about 30 seconds of NSR.) Patient Problems: Problems Problem Status Onset chronic disease mgmt/transitional care Acute Atrial fibrillation Acute Weakness Acute Dehydration Acute
--- NOTE | 2017-09-09 11:48 | POSTANESTH ---
Post Anesthetic Evaluation Cardiovascular Status: Similar to Pre-Op Cond Respiratory Status: Similar to Pre-op Cond. Level of Consciousness/Mental Status: Mildly Sleepy, Arousable Pain Control: Adequate, Prn Tx Ordered Nausea/Vomiting Control: Adequate, Prn Tx Ordered Complications Possibly Related to Anesthesia: None Noted
--- NOTE | 2017-09-09 13:20 | ASMTCMCOM ---
CM Note CM Note Notes: Pts case discussed in morning rounds. CM met w/ pt for dispo planning. Pt was unable to give a definitive answer on if he is willing to go to a SNF or not. Updates sent to [facility]. CM to follow. Plan: TBD Date Signed: 09/09/2017 01:19 PM Electronically Signed By:MARK Mckeon
--- NOTE | 2017-09-09 14:11 | WOCRNPDOC ---
WOCRN Advanced Assessment Note - Skin Integrity Problem, Advanced Assess Proximal Coccyx Pressure Injury Dressing Type: Open to Air Exudate Amount: None Integumentary Issue Intervention: Dressing Applied Sakina Wound Tissue: Erythema, Non-blanching, Dry, Painful/Tender Wound Bed Color: Yellow Wound Bed Constitution: Adhered Slough Wound Edges: Attached, Well Defined Pressure Injury Stage: Unstageable Distal Coccyx Pressure Injury Dressing Type: Open to Air Exudate Amount: None Integumentary Issue Intervention: Dressing Applied Sakina Wound Tissue: Erythema, Non-blanching, Dry, Painful/Tender Wound Bed Color: Yellow Wound Bed Constitution: Adhered Slough Wound Edges: Attached, Well Defined Pressure Injury Stage: Unstageable Left Lower Sacrum Pressure Injury Dressing Type: Open to Air Exudate Amount: None Integumentary Issue Intervention: Dressing Applied Sakina Wound Tissue: Erythema, Non-blanching, Dry, Painful/Tender Wound Bed Color: Yellow Wound Bed Constitution: Adhered Slough Wound Edges: Attached, Well Defined Pressure Injury Stage: Unstageable Right Lower Sacrum Pressure Injury Dressing Type: Open to Air Integumentary Issue Intervention: Dressing Applied Sakina Wound Tissue: Erythema, Non-blanching, Dry, Painful/Tender Wound Bed Color: Yellow Wound Bed Constitution: Adhered Slough Wound Edges: Attached, Well Defined Pressure Injury Stage: Unstageable Skin Integrity Problem Comment: Per KARRI Rosen, nursing has had an extremely difficult time keeping any type of dressing in place. The patient remains up in the chair at all times and fidgets, causing dressings to roll up and become displaced. He is using a chair offloading cushion but is insisting on using one brought in from home. Today, I evaluated the patient while side lying in bed but his daughter reports that he feels like he can't breathe when in bed so feels the need to sit upright. The patient reports that his "bottom hurts". Explained to patient that we're trying to soften and moisten the wounds on his bottom and that if he could help to make sure dressings were in place, he would be helping his wounds to heal faster. Will modify orders to see if we can't get a new dressing type to adhere to the area. All wounds cleaned with NS and gauze. Honey applied to all wound beds. Sakina wound tissue covered with skin prep. Small tegaderm cut in half - one half applied to each of the bilateral sacral wounds. Small tegaderm creased lengh-greene and applied vertically to coccyx wounds. Medipore tape applied over the top to help secure. Wound care will round again early next week.
--- NOTE | 2017-09-09 14:55 | PDCARPN ---
Cardiology Progress Note Chief Complaint: Patient reports fatigue symptoms. Assessment/Plan: Assessment: 67-year-old male with significant past cardiac history that includes CAD, previous CABG, type 2 diabetes, GERD, ERMELINDA, hypothyroidism. Admitted 09/01/2007 for shortness of breath, and increased weight gain, reporting 50 lb over the last month. Found to be new onset of atrial fibrillation with RVR. Laboratory studies drawn on admission showing BMP of 1010. Troponin levels have shown negative (0.034). Echocardiogram done on 08/31/2017 showing borderline concentric LVH, EF of 55%, are no regional wall abnormality , LA is mildly to moderately dilated, mild MR, mild TR, normal pulmonary artery pressures. Patient initially started on bolus IV diuretics, and transitioned over to IV Lasix drip. Today: Patient underwent NIKKY cardioversion, unfortunately after 2 shocks, he was only able to maintain sinus rhythm for about 30 seconds. BUN creatinine elevated today at 38 and 1.2. Sodium remained stable. O>I, but weith up. He denies of any chest pressure pain or symptoms suggesting of ischemia. Continues to have improvement in peripheral edema to lower extremities. Plan: 1. Acute on chronic right-sided heart failure with cor pulmonale: transferred on torsemide yesterday, continue on current dosage. BUN creatinine up mildly, repeat BMP in a.m.. Continue fluid restriction and daily weight. 2. AFib with RVR: Attempted cardioversion today, unfortunately patient returned back to atrial fibrillation despite 2 shocks. Well rate controlled on current medication of metoprolol. Anticoagulated on Eliquis. continue on current medication management, may consider antiarrhythmic therapy in the future , as an outpatient. 3. Lightheadedness /hypotension: No further episodes. 4. CAD: Denies of any chest pain or pressure symptoms suggesting of ischemia. Continue on anti-platelet therapy of aspirin. Secondary risk prevention with atorvastatin. 5. Hypomagnesium: Magnesium oxide as ordered. Supplemental IV magnesium per protocol. Continue to monitor. 6. Hyponatremia: Sodium 130 today, continues to drop. Diuretic change as above. Fluid restriction. 7. Hypertension: Blood pressure within normal limits. No changes at this time. 8. Urine retention: Miller catheter inserted due to ongoing retention. Plan for fully to be left in on upon discharge, patient to follow up with Urology as an outpatient. 09/09/17 14:50 Subjective: He denies of any chest pressure or pain, reports improvement in his shortness of breath, and peripheral edema. Denies of any orthopnea, PND, lightheadedness , near-syncope or syncopal events. Reports no palpitations. Reviewed/Discussed With: hospitalist (Dr Lezama), other (Dr Troncoso) Objective: Vital Signs (8 Hrs) Temp Pulse Resp BP Pulse Ox 09/09/17 11:11 101 H 16 115/64 92 09/09/17 07:34 36.9 C 101 H 16 115/64 92 Intake/Output (24 Hrs) 09/08/17 09/09/17 09/10/17 05:59 05:59 05:59 Intake Total 2337 1720 Output Total 2780 2550 Balance -443 -830 Intake: Oral (ml) 2000 1350 IV Intake (ml) 370 IV Infused (ml) 337 Furosemide 100 mg In D5w 237 100 ml @ As Directed IV CONT ANIKA Rx#:[id number] Magnesium Sulf 1 gm/ 100 Dextrose 100 ml @ 100 mls /hr IV ONCE ONE Rx#: [id number] Output: Urine (ml) 2780 2550 Catheter 2780 2550 Other: Weight 117.6 kg 119.3 kg 119.3 kg Intake Quantity Yes Sufficient Number of Stools Toilet 1 Result Diagrams: 08/31/17 10:25 09/09/17 03:20 - Physical Exam Constitutional: no apparent distress, obese Ears, Nose, Mouth, Throat: moist mucous membranes Cardiovascular: no rubs, systolic murmur ( 1 to 2/6 systolic left sternal border.), irregularly irregular ( AFib on monitor), jugular vein distention ( 5 -6 cm above sternal notch), pulses symmetric bilat, No carotid bruit Peripheral Pulses: 2+: carotid (R), carotid (L) Respiratory: clear to auscultate bilat, no crackles, no wheezes Gastrointestinal: normoactive bowel sounds Skin: warm, other ( multiple skin dressings on bilateral lower extremities, all clean dry and intact no signs of redness, swelling, drainage.), No no edema ( + 3 peripheral edema bilateral lower extremities to knees) Neurologic: AAOx3 Psychiatric: cooperative, following commands ICD10 Worksheet Patient Problems: Problems Problem Status Onset chronic disease mgmt/transitional care Acute Atrial fibrillation Acute Weakness Acute Dehydration Acute
[2017-09-09] MEDS ORDERED: POLYETHYLENE GLYCOL 3350 17 GM PKT PO ONE (14:56)
--- NOTE | 2017-09-09 14:59 | HOSPPROG ---
Hospitalist Progress Note Assessment/Plan: 67 yo M w weight gain and weakness acute right sided diastolic CHF - now on torsemide 10 kg down KALEY : hold pm torsemide paroxysmal a-fib with RVR - rate controlled - cont metop - eliquis per cards for CHADSVasc=5 carotid disease - cont asa/eliquis/statin hypoMg - replete aggressively hypoNa - follow with diuresis CAD - asa/statin urinary retention - 2.5L in bladder - alvarenga placed - discussed with Karon Soriano - Dr Anglin had recommended TURP previously; - he will need to be discharged with the alvarenga and follow up with Dr Anglin - cont flomax pressure injury, POA - wound care htn - hold arb, BB started morbid obesity - BMI 38 neuropathy - gabapentin DM2 - cont metformin and glyburide, hold actos encephalopathy - likely progression of underlying dementia; no focal findings to suggest CVA 09/07- appears resolved # dispo - inpatient; he is anxious for discharge but not ready; his daughter Marge is very involved Subjective: unsuccessful cardioversion. case d/w savanah scott, cardiology NETWORKING SPECIALIST Objective: Vital Signs Temp Pulse Resp BP Pulse Ox 36.9 C 101 H 16 115/64 92 09/09/17 07:34 09/09/17 11:11 09/09/17 11:11 09/09/17 11:11 09/09/17 11:11 Laboratory Results 09/09/17 03:20 09/08/17 09/09/17 09/10/17 05:59 05:59 05:59 Intake Total 2337 1720 Output Total 2780 2550 Balance -443 -830 PT 20.0 SEC (12.0-15.0) H 09/09/17 03:20 INR 1.69 (0.83-1.16) H 09/09/17 03:20 - Physical Exam Constitutional: no apparent distress, not in pain Eyes: PERRL, anicteric sclera Ears, Nose, Mouth, Throat: moist mucous membranes, hearing normal Cardiovascular: regular rate and rhythym, no murmur, rub, or gallop Respiratory: no respiratory distress, no rales or rhonchi Gastrointestinal: normoactive bowel sounds, soft, non-tender abdomen Genitourinary: no bladder fullness, alvarenga in urethra Skin: warm, normal color, other (multiple bandaged LE wounds) Neurologic: AAOx3 ICD10 Worksheet Patient Problems: Problems Problem Status Onset Atrial fibrillation Acute Dehydration Acute Weakness Acute chronic disease mgmt/transitional care Acute
--- NOTE | 2017-09-09 16:21 | ECHO ---
[email or web address] [address] [address] Main: [phone] Fax: Transesophageal Echocardiography Name: BERTA DAVE MR#: [id number] Study Date: 09/09/2017 Study Time: 10:59 AM Date of : 1950 Age: 67 year(s) Height: 180.3 cm (71 in.) Weight: 117.48 kg (259 lb.) BSA: 2.35 m2 Gender: Male Examination: NIKKY Indication: a fib Image Quality: Adequate Contrast: Requested by: Arturo Simon Heart Rate: Rhythm: BP: / Procedure Staff Infection Control Coordinator: Ana Lilia Durán [facility] Reading Physician: Srikanth Troncoso MD Requesting Provider: NIKKY Exam Details Patient Consent: Risks, alternatives of procedure explained to patient, informed consent obtained. Conclusions: The patient was in atrial fibrillation at the time the study. Normal left ventricular size and systolic function. LVEF estimated at 55-60%. There is normal wall motion. The right ventricle appears to be mildly dilated with mild hypokinesis. Severe left atrial enlargement is noted with moderate right atrial enlargement. Left atrial appendage is free of thrombus. The interatrial septum appears to be intact on 2 dimensional and color flow Doppler imaging. Valvular anatomy is normal. There is mild mitral and [id number] tricuspid regurgitation. There is no pericardial effusion. Following the procedure the patient underwent cardioversion. Measurements: Chambers Valvular Assessment AV/MV Valvular Assessment TV/PV Normal Normal Normal Name Value Range Name Value Range Name Value Range Visual EF: 60 % Additional Measurements: Findings: Left Ventricle: Normal size left ventricle. Normal global systolic LV function. The ejection fraction is visually estimated to be 60 %. No regional wall motion abnormality. Unable to assess diastolic dysfunction. Right Ventricle: Dilated right ventricle and right atrium. Patient: BERTA DAVE Study Date: 09/09/2017 Page 1 of 2 10:59 AM Left Atrium: Left atrial enlargement. Left Atrial Appendage: The left atrial appendage is unilobular. Good color flow doppler in the left atrial appendage. Normal PW-Doppler flow pattern. No thrombus in left appendage. Right Atrium: The right atrium is normal in size. Mitral Valve: The mitral valve is normal in appearance and function. Mild mitral valve regurgitation is present. No mitral stenosis is present. Aortic Valve: The aortic valve is tri-leaflet. There is no significant aortic valve regurgitation. No aortic valve stenosis is present. Tricuspid Valve: The tricuspid valve is normal in appearance and function. Mild to moderate tricuspid valve regurgitation. Pulmonic Valve: The pulmonic valve is normal in appearance and function. Aorta: The aorta is normal. Pericardium: No pericardial effusion. l1n (No Signature Object) Patient: BERTA DAVE Study Date: 09/09/2017 Page 2 of 2 10:59 AM [id number]
[2017-09-09] MEDS: MELATONIN 3 MG TAB PO SCH (20:43)
[2017-09-09] MEDS: METHENAMINE HIPP 1 GM TAB PO SCH (20:44)
[2017-09-09] MEDS: ASPIRIN 81 MG CHEWABLE TAB PO SCH (20:44)
[2017-09-10] MEDS: glyBURIDE 5 MG TAB PO SCH (08:24)
[2017-09-10] MEDS: POTASSIUM CL 20 MEQ TAB PO SCH (08:24)
[2017-09-10] MEDS: GABAPENTIN 400 MG CAP PO SCH (08:25)
[2017-09-10] MEDS: SENNOSIDES/DOCUSATE SODIUM TAB PO SCH (08:25)
[2017-09-10] MEDS: PANTOPRAZOLE SODIUM 40 MG TAB PO SCH (08:25)
[2017-09-10] MEDS: TORSEMIDE 20 MG TAB PO SCH (08:25)
[2017-09-10] MEDS: metFORMIN HCL 500 MG TAB PO SCH (08:25)
[2017-09-10] MEDS: METOPROLOL TARTRATE 50 MG TAB PO SCH (08:25)
[2017-09-10] MEDS: MAGNESIUM OXIDE 400 MG TAB PO SCH (08:26)
[2017-09-10] MEDS: APIXABAN 5 MG TAB PO SCH (08:26)
[2017-09-10] MEDS: SPIRONOLACTONE 25 MG TAB PO SCH (08:26)
[2017-09-10] MEDS: TAMSULOSIN HCL 0.4 MG CAP PO SCH (08:26)
[2017-09-10] MEDS: ATORVASTATIN CALCIUM 20 MG TAB PO SCH (08:26)
[2017-09-10] MEDS ORDERED: POLYETHYLENE GLYCOL 3350 17 GM PKT PO SCH (09:00)
[2017-09-10 09:25] VITALS: BP 176/75
--- NOTE | 2017-09-10 10:14 | PDCARPN ---
Cardiology Progress Note Assessment/Plan: Assessment: 67-year-old male with significant past cardiac history that includes CAD, previous CABG, type 2 diabetes, GERD, ERMELINDA, hypothyroidism. Admitted 09/01/2007 for shortness of breath, and increased weight gain, reporting 50 lb over the last month. Found to be new onset of atrial fibrillation with RVR. Laboratory studies drawn on admission showing BMP of 1010. Troponin levels have shown negative (0.034). Echocardiogram done on 08/31/2017 showing borderline concentric LVH, EF of 55%, are no regional wall abnormality , LA is mildly to moderately dilated, mild MR, mild TR, normal pulmonary artery pressures. Patient initially started on bolus IV diuretics, and transitioned over to IV Lasix drip. Today: Patient underwent NIKKY cardioversion, unfortunately after 2 shocks, he was only able to maintain sinus rhythm for about 30 seconds. BUN creatinine elevated today at 38 and 1.2. Sodium remained stable. O>I, but weith up. He denies of any chest pressure pain or symptoms suggesting of ischemia. Continues to have improvement in peripheral edema to lower extremities. Plan: 1. Acute on chronic right-sided heart failure with cor pulmonale: transferred on torsemide yesterday, continue on current dosage. BUN creatinine up mildly, repeat BMP in a.m.. Continue fluid restriction and daily weight. 2. AFib with RVR: Attempted cardioversion yesterday, and reverted back to atrial fibrillation. Well rate controlled on current medication of metoprolol. Anticoagulated on Eliquis. Continue on current medication management, may consider antiarrhythmic therapy in the future, as an outpatient. 3. Lightheadedness /hypotension: No further episodes. 4. CAD: Denies of any chest pain or pressure symptoms suggesting of ischemia. Continue on anti-platelet therapy of aspirin. Secondary risk prevention with atorvastatin. 5. Hypomagnesium: Magnesium oxide as ordered. Supplemental IV magnesium per protocol. 6. Hyponatremia: Sodium 130 today, continues to drop. Diuretic change as above. Fluid restriction. 7. Hypertension: Blood pressure within normal limits. No changes at this time. 8. Urine retention: Alvarenga catheter inserted due to ongoing retention. Plan for alvarenga to be left in on upon discharge, patient to follow up with Urology as an outpatient. He denies of any chest pressure or pain, reports improvement in his shortness of breath, and peripheral edema. Denies of any orthopnea, PND, lightheadedness , near-syncope or syncopal events, and no palpitations. PLAN: OK for Discharge. Follow up with EP in clinic. [facility] will call with appointment. 09/10/17 10:09 Time Spent with Patient: greater than 35 minutes Time Spent with Patient: Greater than 35 minutes spent on this patients care, greater than 50% of time spent counseling, educating, and coordinating care regarding the above mentioned plan. Objective: Vital Signs (8 Hrs) Temp Pulse Resp BP Pulse Ox 09/10/17 08:00 36.6 C 113 H 18 176/75 H 93 09/10/17 04:00 36.7 C 107 H 16 113/57 L 93 Intake/Output (24 Hrs) 09/09/17 09/10/17 09/11/17 05:59 05:59 05:59 Intake Total 1720 1840 Output Total 2550 3175 Balance -830 -1335 Intake: Oral (ml) 1350 1840 IV Intake (ml) 370 Output: Urine (ml) 2550 3175 Catheter 2550 3175 Other: Weight 119.3 kg 118.6 kg Intake Quantity Yes Sufficient Number of Stools Toilet 1 Result Diagrams: 08/31/17 10:25 09/10/17 05:45 - Physical Exam Constitutional: no apparent distress Cardiovascular: no rubs, no gallops, systolic murmur (2 out 6), irregularly irregular Respiratory: clear to auscultate bilat, no crackles, no wheezes, reduced air movement Gastrointestinal: no tenderness Skin: warm Neurologic: AAOx3 Psychiatric: cooperative, interactive ICD10 Worksheet Patient Problems: Problems Problem Status Onset Atrial fibrillation Acute Dehydration Acute Weakness Acute chronic disease mgmt/transitional care Acute
[2017-09-10] MEDS ORDERED: MAGNESIUM CITRATE 300 ML BOTTLE PO ONE (10:32)
--- NOTE | 2017-09-10 10:37 | HOSPPROG ---
Hospitalist Progress Note Assessment/Plan: 67 yo M w weight gain and weakness acute right sided diastolic CHF - now on torsemide 10 kg down KALEY : hold pm torsemide cr 1.0 follow bid paroxysmal a-fib with RVR - rate controlled - cont metop - eliquis per cards for CHADSVasc=5 carotid disease - cont asa/eliquis/statin hypoMg - replete aggressively hypoNa - follow with diuresis CAD - asa/statin urinary retention - 2.5L in bladder - alvarenga placed - discussed with Kaorn Soriano - Dr Anglin had recommended TURP previously; - he will need to be discharged with the alvarenga and follow up with Dr Anglin - cont flomax pressure injury, POA - wound care htn - hold arb, BB started morbid obesity - BMI 38 neuropathy - gabapentin DM2 - cont metformin and glyburide, hold actos encephalopathy - likely progression of underlying dementia; no focal findings to suggest CVA 09/07- appears resolved # dispo -to snf today > 30 minutes on dc Subjective: cr improved w holsing 1 dose torsemide Objective: Vital Signs Temp Pulse Resp BP Pulse Ox 36.6 C 113 H 18 176/75 H 93 09/10/17 08:00 09/10/17 08:00 09/10/17 08:00 09/10/17 08:00 09/10/17 08:00 Laboratory Results 09/10/17 05:45 09/09/17 09/10/17 09/11/17 05:59 05:59 05:59 Intake Total 1720 1840 Output Total 2550 3175 Balance -830 -1335 PT 20.0 SEC (12.0-15.0) H 09/09/17 03:20 INR 1.69 (0.83-1.16) H 09/09/17 03:20 - Physical Exam Constitutional: no apparent distress, appears nourished Eyes: PERRL, anicteric sclera Ears, Nose, Mouth, Throat: moist mucous membranes, hearing normal Cardiovascular: regular rate and rhythym, no murmur, rub, or gallop Respiratory: no respiratory distress, no rales or rhonchi Gastrointestinal: normoactive bowel sounds, soft, non-tender abdomen Genitourinary: No alvarenga in urethra Skin: warm, normal color Musculoskeletal: full muscle strength, no muscle tenderness Neurologic: AAOx3 ICD10 Worksheet Patient Problems: Problems Problem Status Onset Atrial fibrillation Acute Dehydration Acute Weakness Acute chronic disease mgmt/transitional care Acute
--- NOTE | 2017-09-10 10:45 | PDIAF ---
- Diagnosis Diagnosis: chf, atrial fibrillation Code Status: Full Code - Medication Management Discharge Medications: Medications to Continue on Transfer Aspirin [Aspirin 81mg (*)] 162 mg PO HS 08/31/17 [Last Taken 08/30/17] Atorvastatin Calcium [Lipitor 20 mg (*)] 20 mg PO DAILY 08/31/17 [Last Taken ] Gabapentin [Neurontin 400 MG (*)] 1,200 mg PO BID 08/31/17 [Last Taken 08/31/17] Methenamine Mandelate [METHENAMINE MANDELATE] 0.5 gm PO HS 08/31/17 [Last Taken 08/30/17] Tamsulosin HCl [Flomax 0.4 MG (*)] 0.4 mg PO DAILY 08/31/17 [Last Taken 08/31/17 ] glyBURIDE [Glyburide] 10 mg PO BID 08/31/17 [Last Taken 08/31/17] metFORMIN HCL [Glucophage 500 mg (*)] 1,000 mg PO BID 08/31/17 [Last Taken 08/31] Apixaban [Eliquis] 5 mg PO BID tab 09/10/17 [Last Taken Unknown] Calcium Carbonate [Tums 500MG (*)] 500 mg PO TID PRN tab.chew 09/10/17 [Last Taken Unknown] Magnesium Oxide [Magnesium Oxide 400 mg (*)] 400 mg PO BID tab 09/10/17 [Last Taken Unknown] Metoprolol Tartrate [Lopressor 50 mg (*)] 75 mg PO BID tab 09/10/17 [Last Taken Unknown] Polyethylene Glycol 3350 [Miralax 17 gm (*)] 17 gm PO DAILY pkt 09/10/17 [Last Taken Unknown] Polyethylene Glycol 3350 [Miralax 17 gm (*)] 17 gm PO DAILY PRN pkt 09/10/17 [ Last Taken Unknown] Potassium Cl [Klor-Con 20 meq (*)] 20 meq PO DAILY tab 09/10/17 [Last Taken Unknown] Spironolactone [Aldactone 25 MG (*)] 25 mg PO DAILY tab 09/10/17 [Last Taken Unknown] Torsemide [Demadex] 60 mg PO BIDDIUR tab 09/10/17 [Last Taken Unknown] Discharge Medications: Refer to the Discharge Home Medication list for PRN reason. - Orders Services needed: Registered Nurse, Certified Learning Technologist, Physical Therapy, Occupational Therapy Diet Recommendation: sodium restricted Additional Instructions: Please follow up within 3- 4 weeks of discharge with outpatient [facility]ound [facility]aling Center if you continue to have issues with your wounds: You may reach them at [phone] for an appointment and continued management of your wounds. Please call them [facility] to schedule your appointment as they fill up quickly. If before that time you have any issues please follow up with your PCP. Wound care: Bedsore (Pressure injury) care: You have 4 unstageable pressure injuries (also known as a bedsore) on the very lowest part of your back (the coccyx and sacrum.) To help heal this wound and avoid further injury please do the followin. Reposition yourself frequently, at least every 15 minutes when sitting. We recommend sitting on an air cushion. Please never use a doughnut. 2. When youre in bed, try to rest on your side as much as possible, and change position every two hours (for example, turn or tilt from your right side toward your left).~ If you sleep on a sleep number or medical bed, keep the head of the bed below 30 degrees and keep all pressure off your low back for at least 5 minutes at least every two hours.~ 3. As needed, you may use Calazime, dimethicone moisture barrier cream, or any ttwm-jhh-bkavdky diaper rash cream to help prevent or treat a moisture-related rash to your bottom area and buttocks. 4. Please contact [facility] outpatient [facility] for an appointment, at [phone], If your wounds re/open or dont improve, or if you have any further questions or concerns. 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 baseline cr 1.0) - Follow Up Care Current Providers and Referrals: Patient,NotPresent [Unknown] - As per Instructions Brendon Anglin MD [Medical Doctor] - Arturo Simon, SIMEON [Certified Nurse Practioner] -
--- NOTE | 2017-09-10 11:11 | GDS ---
[f rep st] DISCHARGE SUMMARY DISCHARGE DIAGNOSES: 1. Right heart failure with volume overload. 2. Benign prostatic hypertrophy with urinary retention. 3. Weakness. 4. Acute kidney injury. 5. Atrial fibrillation. 6. Coronary artery disease. 7. Type 2 diabetes. 8. Gastroesophageal reflux disease. 9. Skin breakdown on his coccyx, present on admission. 10. Congestive heart failure with fluid retention, likely diastolic dysfunction. HISTORY: Please see admission history and physical by Dr. James Thurston. The patient presented with w eakness and weight gain, " I have gained a bunch of weight over a period of weeks" and did not really respond to diuretics. His initial evaluation showed an echo with normal EF, unable to assess diastolic dysfunction, normal right-sided pressures. However, his clinical presentation was 1 of congestive heart failure, possibl y right heart failure. His BNP on presentation was elevated at 1000. The patient was diuresed a total of 10 kg while here. His BUN and creatinine were stable. He had mi ld hyponatremia. He was seen by Cardiology, who followed him clinically. He is noted to be in atria l fibrillation. He had attempted NIKKY cardioversion the day prior to discharge. It was unsuccessful. He had urinary retention acquiring a Miller. He has been recommended to have a TURP before, and he is now being discharged with a Miller. His diuretics were held overnight on the last day, given a creatinine that had crept up to 1.2 from a baseline of 0.7. It fell to 1. He will require twice weekly chem 7 panels while he is on diuretics . He remains in atrial fibrillation on anticoagulation. He has been managed with oral medications for his diabetes. He does have constipation and will require a bowel regimen. He is on alpha shellie fo r his BPH. DISCHARGE STATUS: Discharge status is to SNF with outpatient followup with Cardiology and Neurology. Please see medication list on discharge. /[id number]/MODL
--- NOTE | 2017-09-10 11:42 | ASDISCHSUM ---
Discharge Information Plan Status:SNF Medically Cleared to Leave:09/10/2017 Discharge Date:09/10/2017 CM D/C Disposition:Long-Term Facility ADT D/C Disposition: Projected Discharge Date:09/10/2017 11:00 AM Transportation at D/C:Wheelchair Van Discharge Delay Reason: Follow-Up Date:09/10/2017 11:00 AM Discharge Slot: Final Diagnosis: Placement Information Referral Type:*[facility]/SNF Referral ID:[id number] Provider Name:[facility]//[facility] Address 1:[address] [place] [address] Address 2: City:[place] Selection Factors: State:[place] Referral Type:*Home Health Care Services Referral ID:[id number] Provider Name: Address 1: Phone Number: Address 2: Fax Number: City: Selection Factors: State: Patient Contact Information Contact Name:RITA Relationship:Daughter Address:[address] City:[facility] Phone: State/Zip Code:[place] [address] Email: Financial Information Financial Class:Medicare Primary Plan Desc:MEDICARE INPATIENT Primary Plan Number:[id number] Secondary Plan Desc:EQUITABLE INSURANCE Secondary Plan Number:[id number] Assessment Information LACE LACE Length of stay for Answers: 7-13 days current admission Acuity / Level of Answers: Yes Care: Did the patient have an inpatient admission? Comorbidities - select Answers: Coronary Artery Disease all that apply Diabetes (uncontrolled or controlled) Peripheral vascular disease Other Notes: afib, obstructive sleep apnea, # of Emergency department Answers: 1-2 visits in the last 6 months Score: 14 Date Signed: 09/10/2017 11:40 AM Electronically Signed By:Katelyn Simental RN [facility] Progress Note CM Note CM Note Notes: Chart reviewed for discharge planning purposes. Patient is a 67 year old male admitted via ED s/p weakness and falls. History significant for CABG, ERMELINDA and apparently new onset of CHF. Per PT and OT evaluations he is unsafe to discharge home, I have sat with him to discuss rehab and he is reluctant to commit to this but understands he may need to. He is agreeable to [facility] and reports he lives in [place] with one of his daughters. We did discuss [facility] in [place] as a possible SNF rehab for him. Will send referral to [facility]. Will monitor patient's progress as he is likely here a few more days. CM to follow. Plan: TBD but likely Rehab Date Signed: 09/01/2017 02:30 PM Electronically Signed By:Mildred Kaplan RN [facility] Progress Note CM Note CM Note Notes: Chart reviewed. Patient adamantly refusing SNF despite wounds and limited mobility. Currently on lasix drip.Referrals to [facility] done. Pending review. Per therapy they recommend SNF. CM to follow. Plan: TBD Date Signed: 09/02/2017 03:31 PM Electronically Signed By:Mildred Kaplan RN [facility] CM Progress Note CM Note CM Note Notes: CM met with patient and daughter Marge . CM shared [facility] [place] accepted for SNF and [facility] for Home Health. We discussed Home Health skilled support can be supplemented with Home Care, CM labeled Home care pages in Blue Book. CM shared this tough decision doesn't need to be made now as patient is very eager to leave, we discussed the goal of SNF is for strengthening and to support a successful transition home. Patient did not decline SNF at this time. Discharge likely +/-5 days per RN. CM to follow. Current D/C plan: D/C date TBD, SNF vs. HH, as family is currently undecided. Date Signed: 09/03/2017 03:17 PM Electronically Signed By:Luda Sahu [facility] Progress Note CM Note [facility] Note Notes: Chart reviewed. Discussed patient status in rounds. Therapy recommending SNF rehab but concedes that with improvements, may be able to dc to home with [facility] in place. Family aware of option to hire additional private care to assist with household issues and personal hygiene issues. Likely here the next two days. Diuresing and wound care as well as continued therapy. CM to follow. Plan : SNF versus home health care. Date Signed: 09/04/2017 03:14 PM Electronically Signed By:Mildred Kaplan RN [facility] Progress Note [facility] Note [facility] Note Notes: 09/05/2017 Case Management Note Discussed pt during rounds this morning. Discussed pt with Transitional Care RN. Transitional Care will follow pt after d/c. Pt has been accepted by [facility]. Pt has also been accepted by [facility]. Case Management d/c poc: Home Care vs SNF rehab. Case Management to follow. Date Signed: 09/05/2017 02:07 PM Electronically Signed By:Katelyn Simental RN [facility] Progress Note CM Note CM Note Notes: 09/07/2017 Case Management Note Discussed pt during rounds this morning. Met w/pt afterwards. Pt is refusing SNF. Pt lacks insight into abilities to safely return home. Pt has been accepted by [facility] and [facility]. [facility] has also accepted the patient. Case Management feels this is the most appropriate d/c given pt wound care requirements and lack of strength for ambulation without assistance. Case Management d/c poc: to be determined. Case Management to follow. Date Signed: 09/07/2017 12:24 PM Electronically Signed By:Katelyn Simental RN [facility] Progress Note [facility] Note [facility] Note Notes: Pts case discussed in morning rounds. Pt will have a NIKKY and cardioversion tomorrow. CM met w/ pt and Marge daughter for dispo planning. Pt reports that he will need to think about going to SNF. Pt reports that in an ideal world he would like to d/c home w/ HC. CM to follow. Plan: TBD Date Signed: 09/08/2017 03:47 PM Electronically Signed By:MARK Mckeon [facility] Progress Note CM Note CM Note Notes: Pts case discussed in morning rounds. CM met w/ pt for dispo planning. Pt was unable to give a definitive answer on if he is willing to go to a SNF or not. Updates sent to [facility]. CM to follow. Plan: TBD Date Signed: 09/09/2017 01:19 PM Electronically Signed By:MARK Mckeon Case Management Discharge Plan Note Case Management Discharge Discharge Order Complete? Answers: Yes Patient to Obtain Answers: Other Notes: [facility] Medications Transportation Arranged Answers: Other Notes: [facility] wheelchair arranged by [facility] Transport will Pick (Date 09/10/2017 03:30 PM & Time) Case Management Transport Answers: Yes Form Complete Faxed Final Orders Answers: Yes Agency/Facility Transfer Answers: Yes Report Printed & Faxed to Receiving Agency Discharge Comments Notes: 09/10/2017 Case Management Note Faxed d/c orders to [facility]. [facility] arranged transport [facility]LI w/madisyn ZENG to call report. Date Signed: 09/10/2017 11:37 AM Electronically Signed By:Katelyn Simental RN Intervention Information Intervention Type:*IM-Signed Date of Service:09/09/2017 02:26 PM Patient Type:Inpatient Staff Member:Bela Lin Hours: Discipline: Severity: Comment:
== END 2017-09-10 15:37 | DRG 292 ==
LOC: EDUNIT# → EDBD → INTOOBSV 10:41 → OBSVTOIN 10:41 → F2W 13:15
PROVIDERS: ADMIT Internal Medicine; ATTEND Internal Medicine
PROC: B246ZZ4 Ultrasonography of Right and Left Heart, Transesophageal (ICD-10-PCS; principal; 2017-09-09)
PROC: 5A2204Z Restoration of Cardiac Rhythm, Single (ICD-10-PCS; principal; 2017-09-09)
DX: I50.31 Acute diastolic (congestive) heart failure (principal); E87.1 Hypo-osmolality and hyponatremia; I48.0 Paroxysmal atrial fibrillation; N17.9 Acute kidney failure, unspecified; L89.150 Pressure ulcer of sacral region, unstageable; E83.42 Hypomagnesemia; N40.1 Benign prostatic hyperplasia with lower urinary tract symptoms; R33.8 Other retention of urine; E11.9 Type 2 diabetes mellitus without complications; I25.10 Atherosclerotic heart disease of native coronary artery without angina pectoris; K21.9 Gastro-esophageal reflux disease without esophagitis; E03.8 Other specified hypothyroidism; G47.33 Obstructive sleep apnea (adult) (pediatric); E66.01 Morbid (severe) obesity due to excess calories; Z68.38 Body mass index [BMI] 38.0-38.9, adult; Z95.1 Presence of aortocoronary bypass graft; Z87.891 Personal history of nicotine dependence; Z91.81 History of falling
CPT/HCPCS: 97110-GP; 97116-GP; 97161-GP; 97166-GO; 97530-GO; 97530-GP; 97535-GO; G8978-GP-CJ; G8979-GP-CI; G8987-GO-CK; G8988-GO-CJ; J0461; J0690; J1650; J1940; J2704; J3475; Q9967

== ENCOUNTER 2017-09-27 11:03 | Inpatient (IN) | payer OTHER ==
--- NOTE | 2017-09-27 11:04 | EDPHY ---
H & P Time Seen by Provider: 09/27/17 11:03 HPI/ROS: CHIEF COMPLAINT: Nonhealing wounds HISTORY OF PRESENT ILLNESS: Bilateral leg wounds for 1 month nonhealing. The patient says he wants me to see if I can"get rid of these"and"healed him up." Patient says the both legs causing a lot of pain. He also has some buttock ulcers which is been present for longer. Not associated with fevers and chills , but associated with chronic drainage and some surrounding redness. No chest pain or shortness of breath. REVIEW OF SYSTEMS: Eye: no change in vision ENT: no sore throat Cardiac: no chest pain or syncope Pulmonary: no cough or SOB Abdomen: no vomiting, diarrhea, abdominal pain Musculoskeletal: no back pain Skin: HPI Neuro: no headache Constitutional: no fever : no urinary symptoms A comprehensive 10 point review of systems is otherwise negative aside from elements mentioned in the history of present illness. PAST MEDICAL HISTORY: Includes coronary disease, type 2 diabetes, atrial fibrillation on Eliquis. Pressure ulcer left buttock and right buttock. Hypertension and peripheral neuropathy. Social history: Comes to us from [facility] in [place] General Appearance: Alert and conversant, cooperative. Eyes: No scleral icterus. ENT, Mouth: Normal mucous membranes. Respiratory: Normal respiratory effort, breath sounds equal, lungs are clear to auscultation. Cardiovascular: Regular rate and rhythm. Gastrointestinal: Abdomen is soft and non tender. Indwelling Miller. Neurological: Alert, face symmetric, normal motor and sensory in extremities. Skin: Bilateral buttock pressure ulcers without cellulitis. He has open wounds on both lower leg left greater than right and 1 on the dorsum of his left foot. Right side is 2 cm on the medial calf. Left side has multiple in an area 4 x 8 cm on the medial calf with an additional lesion 1 cm on the cooper and a 2 cm on the dorsum of the foot just proximal to the 2nd and 3rd toes. There is some surrounding redness on each side, but no lymphangitis and not hot to the touch. Musculoskeletal: Bilateral peripheral edema. Psychiatric: Not agitated. Emergency Department course/MDM: Wound culture is sent. Admission for further evaluation, may need Infectious Disease or surgical consultation. CRP and sedimentation rate are elevated. Likely needs further evaluation for possibility for osteomyelitis. Constitutional: Initial Vital Signs Temperature (C) 36.4 C 09/27/17 11:13 Heart Rate 101 H 09/27/17 11:13 Respiratory Rate 18 09/27/17 11:13 Blood Pressure 114/68 09/27/17 11:13 O2 Sat (%) 95 09/27/17 11:13 O2 Delivery Mode Room Air Allergies/Adverse Reactions: No Known Allergies Allergy (Verified 08/31/17 10:56) Home Medications: Medication Instructions Recorded Aspirin [Aspirin 81mg (*)] 162 mg PO HS 08/31/17 Atorvastatin Calcium [Lipitor 20 20 mg PO HS 08/31/17 mg (*)] Methenamine Mandelate [METHENAMINE 0.5 gm PO HS 08/31/17 MANDELATE] Tamsulosin HCl [Flomax 0.4 MG (*)] 0.4 mg PO DAILY 08/31/17 glyBURIDE [Glyburide] 10 mg PO BID 08/31/17 metFORMIN HCL [Glucophage 500 mg 1,000 mg PO BID 08/31/17 (*)] Apixaban [Eliquis] 5 mg PO BID tab 09/10/17 Calcium Carbonate [Tums 500MG (*)] 500 mg PO TID PRN tab.chew 09/10/17 Metoprolol Tartrate [Lopressor 50 75 mg PO BID tab 09/10/17 mg (*)] Polyethylene Glycol 3350 [Miralax 17 gm PO DAILY PRN pkt 09/10/17 17 gm (*)] Potassium Cl [Klor-Con 20 meq (*)] 20 meq PO DAILY tab 09/10/17 Spironolactone [Aldactone 25 MG 25 mg PO DAILY tab 09/10/17 (*)] Furosemide [Lasix 40 MG (*)] 40 mg PO DAILY 09/27/17 Gabapentin [Neurontin 300 MG (*)] 600 mg PO TID 09/27/17 Losartan Potassium [Cozaar 50 mg 50 mg PO DAILY 09/27/17 (*)] Torsemide [Demadex] 20 mg PO BID 09/27/17 Medical Decision Making Differential Diagnosis: Differential considered including but not limited to cellulitis, fasciitis, osteomyelitis, abscess. Consult/Admit Bed Type: [facility] - Data Points Laboratory Results: Laboratory Results 09/27/17 11:30 09/27/17 11:30 09/27/17 09/27/17 11:30 11:30 WBC 10.70 10^3/uL H 10^3/uL (3.80-9.50) RBC 4.99 10^6/uL 10^6/uL (4.40-6.38) Hgb 12.5 g/dL L g/dL (13.7-17.5) Hct 38.9 % L % (40.0-51.0) MCV 78.0 fL L fL (81.5-99.8) MCH 25.1 pg L pg (27.9-34.1) MCHC 32.1 g/dL L g/dL (32.4-36.7) RDW 16.3 % H % (11.5-15.2) Plt Count 333 10^3/uL 10^3/uL (150-400) MPV 9.5 fL fL (8.7-11.7) Neut % (Auto) 76.6 % H % (39.3-74.2) Lymph % (Auto) 14.4 % L % (15.0-45.0) [place] % (Auto) 7.4 % % (4.5-13.0) Eos % (Auto) 0.2 % L % (0.6-7.6) Baso % (Auto) 0.3 % % (0.3-1.7) Nucleat RBC Rel Count 0.0 % % (0.0-0.2) Absolute Neuts (auto) 8.20 10^3/uL H 10^3/uL (1.70-6.50) Absolute Lymphs (auto) 1.54 10^3/uL 10^3/uL (1.00-3.00) Absolute Monos (auto) 0.79 10^3/uL 10^3/uL (0.30-0.80) Absolute Eos (auto) 0.02 10^3/uL L 10^3/uL (0.03-0.40) Absolute Basos (auto) 0.03 10^3/uL 10^3/uL (0.02-0.10) Absolute Nucleated RBC 0.00 10^3/uL 10^3/uL (0-0.01) Immature Gran % 1.1 % % (0.0-1.1) Immature Gran # 0.12 10^3/uL H 10^3/uL (0.00-0.10) ESR 52 MM/HR H MM/HR (0-20) Sodium 133 mEq/L L mEq/L (135-145) Potassium 3.9 mEq/L mEq/L (3.3-5.0) Chloride 92 mEq/L L mEq/L (97-110) Carbon Dioxide 28 mEq/l mEq/l (22-31) Anion Gap 13 mEq/L mEq/L (8-16) BUN 30 mg/dL H mg/dL (7-23) Creatinine 0.8 mg/dL mg/dL (0.7-1.3) Estimated GFR > 60 Glucose 261 mg/dL H mg/dL (70-100) Calcium 9.6 mg/dL mg/dL (8.5-10.4) C-Reactive Protein 80.2 mg/L H mg/L (<10.0) Departure - Departure Disposition: [facility] Inpatient Acute Clinical Impression: Lower limb ulcer Qualifiers: Laterality: unspecified laterality Non-pressure ulcer stage: unspecified non- pressure ulcer stage Qualified Code(s): L97.909 - Non-pressure chronic ulcer of unspecified part of unspecified lower leg with unspecified severity Condition: Good
[2017-09-27 11:45] LABS: PLATELET COUNT 333 10^3/uL (150-400)
[2017-09-27] MEDS ORDERED: ONDANSETRON 4 MG/2 ML VIAL IVP PRN (18:03)
[2017-09-27] MEDS ORDERED: ONDANSETRON DISINTEGRATING 4 MG TAB PO PRN (18:03)
[2017-09-27] MEDS ORDERED: POLYETHYLENE GLYCOL 3350 17 GM PKT PO PRN (18:04)
[2017-09-27] MEDS: metFORMIN HCL 500 MG TAB PO SCH (18:20)
[2017-09-27] MEDS: glyBURIDE 5 MG TAB PO SCH (18:20)
--- NOTE | 2017-09-27 18:29 | PDGENHP ---
History and Physical History and Physical: CC: Worsening pain of chronic wounds HISTORY: This patient who was admitted to this hospital less than a month ago with multiple medical issues, had among those issues some decubitus ulcers in the buttock area that had been present on admission but required ongoing wound care. He was is [facility] [place] [facility] in [place] because of ongoing severe weakness and need for wound care and other a rehabilitation. He tells me that while at the [facility] he has been getting wound care but feels that the pain of his wounds particularly at the buttock and the left leg is worsening. As mentioned that is known to me that there were sacral and buttock sores when he was here 3 weeks ago, but he now has wounds on both lower legs as well. There is also wound on the left foot. Is not entirely clear to me when these leg and foot wounds arose. He says he has not been having fevers that he knows of and does not recall fever symptoms. He says his breathing feels stable, which is notable in that is major diagnosis during the last visit was acute exacerbation of right-sided heart failure accompanied by acute renal failure. It should be noted that the patient does have some definite memory issues and the details of the history given to me by the patient as above may have some in accuracy. ROS: He remains weak but is been gaining strength and tells me that he has been walking at the [facility]. His appetite has been good. A comprehensive 10 system review revealed no other significant findings PAST MEDICAL HISTORY: Cor pulmonale with pulmonary hypertension Chronic renal insufficiency Coronary artery disease status post bypass surgery Atrial fibrillation Diabetes mellitus Diabetic neuropathy Obstructive sleep apnea Peripheral artery disease FAMILY MEDICAL HISTORY: He is unaware of any significant family medical issues SOCIAL HISTORY: Most recently has been under care of a [facility] in [place]; was living in private setting prior to that No alcohol or tobacco MEDICATIONS: The patients list has been reconciled by our clinical pharmacist in the EMR. I have reviewed the list and ordered appropriate medicines. PHYSICAL EXAMINATION: Vital Signs: Stable without fever Examination: General: alert, oriented, notable memory deficit but is oriented to situation otherwise, relaxed Skin: There is a large full-thickness open sacral decubitus ulcer with some weepage, with a a smaller maureen sized open ulcer just inferior to the right buttock which is also full-thickness though not draining anything at this time. On the left leg there is a very large open but more superficial ulcer at mid calf medially and then several other smaller ulcers distal to that. These are surrounded by some cellulitis. There is no drainage but they do look like there is probably infection there. On the distal dorsum of the left foot there is also an ulcer surrounded by cellulitis clearly infected. I cannot feel any abscess there and did not see any evidence of necrosis, would be concerned about possible deep foot infection in this diabetic patient On the right calf there are several small ulcers in various degrees of healing none of which appear overtly infected but some of which are fairly tender. Overall otherwise the skin is warm, dry, good color HEENT: normal Neck: no mass or jvd Resps: relaxed Lungs: clear breath sounds Heart: regular, no murmur Abdomen: soft, nondistended, nontender, +BS, no mass Upper Extremities: normal Lower Extremities: See description of skin lesions above. 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 IV site: looks normal LABORATORY DATA: [place] [address], hemoglobin at 12.5 is higher than it was a month ago platelets stable Sodium 133 is stable for him, BUN is at 30 improved from a month ago and creatinine 0.8 also improved from September 10 Sugars up a bit at 260 A CRP is elevated at 80 RADIOLOGY STUDIES: None done at this time ASSESSMENT: * worsening sacral decubitus ulcer and buttock ulcer with some evidence of infection * new wounds of both legs with infection at ulcers of left leg and left foot, question is some possible deep soft tissue infection at the left foot * diabetic foot infection * chronic right and left heart failure, appears approximately stable at baseline compensation at this time * obstructive sleep apnea and pulmonary hypertension * chronic atrial fibrillation on chronic anticoagulation PLANS: * Inpatient admission * Will begin empiric antibiotics for diabetic foot wounds and other calf wounds sacral wound * Imaging of the foot to assess for possible deep soft tissue or bone infection * Continue his current cardiac therapies and monitor closely for any decompensation or other complications * Continue monitoring of sugars and manage his diabetes as indicated, we uses chronic therapies to begin with * Wound care consult * Could potentially need surgical consult particularly for his foot * CPAP if he is willing to use that at night I have reviewed the patient's case in detail with Dr. I have reviewed the patient's past medical records as part of this assessment, including previous hospital admission records, medication record from [facility]
[2017-09-27] MEDS: ACETAMINOPHEN 325 MG TAB PO PRN (19:33)
[2017-09-27] MEDS: METHENAMINE MANDELATE PO SCH (20:10)
[2017-09-27] MEDS: METOPROLOL TARTRATE 50 MG TAB PO SCH (20:15)
[2017-09-27] MEDS: ASPIRIN 81 MG CHEWABLE TAB PO SCH (20:15)
[2017-09-27] MEDS: GABAPENTIN 300 MG CAP PO SCH (20:17)
[2017-09-27] MEDS: APIXABAN 5 MG TAB PO SCH (20:17)
[2017-09-27] MEDS: CETIRIZINE 10 MG TAB PO SCH (20:18)
[2017-09-27] MEDS: ATORVASTATIN CALCIUM 20 MG TAB PO SCH (20:18)
[2017-09-27] MEDS: PIPERACILLIN/TAZO 3.375 GM/DEX 50 ML IV SCH (20:59)
[2017-09-27] MEDS: TORSEMIDE 20 MG TAB PO SCH (20:59)
[2017-09-27] MEDS ORDERED: glyBURIDE 5 MG TAB PO SCH (21:00)
[2017-09-27] MEDS ORDERED: metFORMIN HCL 500 MG TAB PO SCH (21:00)
[2017-09-28] MEDS: PIPERACILLIN/TAZO 3.375 GM/DEX 50 ML IV SCH ×2 (02:23→07:45)
[2017-09-28] MEDS: ACETAMINOPHEN 325 MG TAB PO PRN ×2 (03:29→08:16)
[2017-09-28] MEDS: FUROSEMIDE 40 MG TAB PO SCH (07:41)
[2017-09-28] MEDS: metFORMIN HCL 500 MG TAB PO SCH ×2 (07:41→18:00)
[2017-09-28] MEDS: glyBURIDE 5 MG TAB PO SCH ×2 (07:41→18:01)
[2017-09-28] MEDS: TAMSULOSIN HCL 0.4 MG CAP PO SCH (07:41)
[2017-09-28] MEDS: TORSEMIDE 20 MG TAB PO SCH ×2 (07:42→21:54)
[2017-09-28] MEDS: CETIRIZINE 10 MG TAB PO SCH (07:42)
[2017-09-28] MEDS: SPIRONOLACTONE 25 MG TAB PO SCH (07:42)
[2017-09-28] MEDS: GABAPENTIN 300 MG CAP PO SCH ×3 (07:42→21:53)
[2017-09-28] MEDS: APIXABAN 5 MG TAB PO SCH ×2 (07:43→21:53)
[2017-09-28] MEDS: POTASSIUM CL 20 MEQ TAB PO SCH (07:56)
[2017-09-28] MEDS: METOPROLOL TARTRATE 50 MG TAB PO SCH ×2 (07:56→21:53)
[2017-09-28] MEDS: LOSARTAN POTASSIUM 50 MG TAB PO SCH (07:57)
[2017-09-28] MEDS ORDERED: SODIUM FERRIC GLUCONAT/SUCROSE 125 MG in NS 100 ML IV ONE (08:27)
--- NOTE | 2017-09-28 09:01 | HOSPPROG ---
Hospitalist Progress Note Assessment/Plan: DIAGNOSES: * worsening sacral decubitus ulcer and buttock ulcer with some evidence of infection * new wounds of both legs with infection at ulcers of left leg and left foot, question is some possible deep soft tissue infection at the left foot * diabetic foot infection * Needing imaging to define question of any deep infection * microbiology: There is a gram-negative jona growing in the culture from the calf wound and his leg from yesterday. However at this time he has multiple different wounds on various sites of his body and has been in hospital and skilled nursing for nearly a month. At this point high suspicion for polymicrobial infections due to his diabetic vascular and neuropathic disease, and also the potential bowel contamination of his sacral and buttock wounds; also high suspicion for resistant organisms * iron deficiency anemia, new diagnosis at this time * Normal ferritin likely reflects significant inflammation but microcytic anemia and low iron saturation are diagnostic in this case * Needs iron supplements * At some point will need to consider diagnostic assessment with endoscopies * significant deconditioning, gait instability, high fall risk * diabetes mellitus type 2 * Sugars slightly higher than desired at this point with goal less than 180. Will follow closely bit probably need to increase therapy slightly, important to avoid low sugars * chronic right and left heart failure, appears approximately stable at baseline compensation at this time * obstructive sleep apnea and pulmonary hypertension, stable * chronic atrial fibrillation on chronic anticoagulation PLANS: * Continue current antibiotics at this time, awaiting cultures * The patient is at this point I believe willing to undergo MRI of his foot which I need to assess for any deep infection; he has had some reluctance due to claustrophobia but I think at this point he is willing to attempt with Ativan after long discussion of various options * Dr. Monique or partner and wound care will see the patient today * Will order wound care mattress for his sacral ulcer so he can get adequate rest * I have ordered some iron replacement and will need to continue that as an oral therapy ongoing * Will eventually need further diagnostic assessment for the iron deficiency * Fall risk precautions, PT and OT * His chronic anticoagulation for AFib will handle DVT prophylaxis here * Continue his current chronic heart therapies * Increase diabetes treatment slightly, follow sugars very closely, goal less than 180 with no low sugars SUBJECTIVE: Still very sore at his wounds Feels weak and tired No new symptoms overnight, no chills or sweats OBJECTIVE Vitals reviewed: Heart rate in good control for his AFib, blood pressures overall stable, no fever Exam: alert oriented looks somewhat uncomfortable sitting in chair due to his sacral sore skin warm dry color ok resps not labored lungs clear BSs heart regular abd soft nondistended nontender, bowel sounds present limbs warm, no edema iv site ok Microbiology: Has gram-negative rods in Gram stain from his calf wound Objective: Vital Signs Temp Pulse Resp BP Pulse Ox 36.6 C 107 H 18 133/68 H 94 09/28/17 07:47 09/28/17 07:56 09/28/17 07:47 09/28/17 07:57 09/28/17 07:47 09/27/17 09/28/17 09/29/17 06:59 06:59 06:59 Intake Total 350 Output Total 1525 Balance -1175 - Time Spent With Patient Time Spent with Patient: greater than 35 minutes Time Spent with Patient: Greater than 35 minutes spent on this patients care, greater than 50% of time spent counseling, educating, and coordinating care regarding the above mentioned plan. ICD10 Worksheet Patient Problems: Problems Problem Status Onset Lower limb ulcer Acute Atrial fibrillation Acute Dehydration Acute Weakness Acute chronic disease mgmt/transitional care Acute
[2017-09-28] MEDS: oxyCODONE IR 5 MG TAB PO PRN ×3 (09:13→22:17)
[2017-09-28] MEDS ORDERED: LORazepam 1 MG TAB PO ONE (10:00)
--- NOTE | 2017-09-28 11:20 | WOCRNPDOC ---
QUINNCRRenny Advanced Assessment Note - Skin Integrity Problem, Advanced Assess Left Posterior Medial Calf Dressing Type: Dejuan Bandage, Kerlix Dressing Description: Intact, Shadowed Exudate Amount: Minimal Exudate Color: Yellow Exudate Characteristic(s): Serosanguinous Integumentary Issue Intervention: Dressing Removed Sakina Wound Tissue: Blanching, Erythema, Painful/Tender Sakina Wound Swelling: None Wound Bed Color: Red, Yellow Wound Bed Constitution: Granulation Tissue (20%), Dried Exudate (80%) Wound Edges: Attached, Irregular Site Odor: None Site Measurement - Head-to-Toe Length X Width X Depth (cm): 12.5x6.6x0.2 Extremity Temperature: Cool Skin Integrity Problem Comment: Dressing removed from lower leg to visualize multiple wounds. All of the wounds are extremely painful for the patient and are in various stages of healing. This is the largest of the wounds on the left leg with periwound erythema. Both lower extremeties are cool. This wound had some serosanguinous drainage on the dressing. There is no evidence of venous stasis, no edema present. Bilateral LE pulses are not palpable, have not been dopplered. Wound care will round again tomorrow. Guadalupe FRAGOSO in room for cares. Dr. Drew in room to visualize all of the wounds. Maryjane Jones RN Wound care team. Left Lower Medial Distal Leg Dressing Type: Dejuan Bandage, Kerlix Dressing Description: Clean/Dry, Intact Exudate Amount: None Integumentary Issue Intervention: Dressing Removed Sakina Wound Tissue: Blanching, Painful/Tender Wound Bed Constitution: Adhered Slough (100% dried) Wound Edges: Attached Site Measurement - Head-to-Toe Length X Width X Depth (cm): 1.5x1.8x0.1 Extremity Temperature: Cool Left Anterior Lower Leg Dressing Type: Dejuan Bandage, Kerlix Dressing Description: Clean/Dry, Intact Exudate Amount: None Integumentary Issue Intervention: Dressing Removed Sakina Wound Tissue: Blanching, Painful/Tender Sakina Wound Swelling: None Wound Bed Constitution: Scab Wound Edges: Attached Site Odor: None Site Measurement - Head-to-Toe Length X Width X Depth (cm): 1.1x0.9xraised scab Extremity Temperature: Cool Left Dorsal Foot Dressing Type: Dejuan Bandage, Kerlix Dressing Description: Intact, Shadowed Exudate Amount: Minimal Exudate Color: Yellow Exudate Characteristic(s): Dried, Serosanguinous Integumentary Issue Intervention: Dressing Removed Sakina Wound Tissue: Blanching, Dry, Calloused, Painful/Tender, Hyperkeratotic Sakina Wound Swelling: None Wound Bed Constitution: Dried Exudate (100%) Wound Edges: Attached Site Odor: None Site Measurement - Head-to-Toe Length X Width X Depth (cm): 1.4x3.2x0.2 Extremity Temperature: Cool Skin Integrity Problem Comment: This is a full thickness wound on the dorsal aspect of the left foot just proximal to the toes. This is the most severe of the bilateral LE wounds. There is dried honey on the wound so wound bed is not able to be visualized. This wound is very painful for the patient. Autolytic debridement initiated on bilateral LE wounds. Wound care will round again tomorrow. Guadalupe FRAGOSO in room for cares. Maryjane Jones RN Wound care team. Right Anterior Lower Distal Leg Dressing Type: Dejuan Bandage, Kerlix Dressing Description: Intact, Shadowed Exudate Amount: Minimal Exudate Color: Yellow Exudate Characteristic(s): Serosanguinous Integumentary Issue Intervention: Dressing Removed Sakina Wound Tissue: Blanching, Painful/Tender Sakina Wound Swelling: None Wound Bed Color: [place] Wound Bed Constitution: Red/[place] - Non Granular Tissue (100%) Wound Edges: Epithelizing, Attached Site Odor: None Site Measurement - Head-to-Toe Length X Width X Depth (cm): 3.2x2.7x0.1 Extremity Temperature: Cool Skin Integrity Problem Comment: Multiple wounds on both lower extremeties. Dressings removed to visualize. This wound is the largest on the right leg, has moderate serosanguinous drainage on the dressing. Wounds are very painful for the patient. Wound care will round again tomorrow. Dr. Drew in room to visualize wounds. Guadalupe FRAGOSO in room for care. Maryjane Jones RN Wound care team. Right Anterior Lower Proximal Leg Dressing Type: Dejuan Bandage, Kerlix Dressing Description: Clean/Dry, Intact Exudate Amount: None Integumentary Issue Intervention: Dressing Removed Sakina Wound Tissue: Blanching, Painful/Tender Sakina Wound Swelling: None Wound Bed Constitution: Scab, Dried Exudate Wound Edges: Attached Site Odor: None Site Measurement - Head-to-Toe Length X Width X Depth (cm): Proximal - 1x0.7xraised. Distal - 0.8x1.3xraised Extremity Temperature: Cool Skin Integrity Problem Comment: These wounds are the two most proximal wounds on the lower right anterior leg with one being more proximal than the other. Very painful for the patient. Wound care will round again tomorrow. Guadalupe FRAGOSO in room for care. Maryjane Jones RN Wound care team. Right Lower Lateral Leg Dressing Type: Dejuan Bandage, Kerlix Dressing Description: Clean/Dry, Intact Exudate Amount: None Integumentary Issue Intervention: Dressing Removed Sakina Wound Tissue: Blanching, Painful/Tender Sakina Wound Swelling: None Wound Bed Constitution: Scab Wound Edges: Attached Site Measurement - Head-to-Toe Length X Width X Depth (cm): 1.9x1.3xscab Extremity Temperature: Cool Left Ischial Tuberosity Pressure Injury Dressing Type: Open to Air Exudate Amount: None Sakina Wound Tissue: Blanching, Painful/Tender Sakina Wound Swelling: None Wound Bed Color: Yellow Wound Bed Constitution: Adhered Slough (100%) Wound Edges: Attached Site Odor: None Site Measurement - Head-to-Toe Length X Width X Depth (cm): 1.8x1.5x0.2 Pressure Injury Stage: Unstageable Pressure Injury Present on Admit: Yes Skin Integrity Problem Comment: Unstageable pressure injury present on admit. There are several pressure injuries across the ischium, sacrum, and coccyx, all of various ages with several smaller ones noted and may evolve into one larger wound. KARRI Sunshine and MIGDALIA Young notified. Patient is incontinent of stool several times a day. Wound care will round again at the end of the week. Dr. Drew in room to visualize all wounds. Guadalupe FRAGOSO in room for care. Maryjane Jones RN Wound care team Coccyx Pressure Injury Dressing Type: Open to Air Exudate Amount: None Sakina Wound Tissue: Blanching, Painful/Tender Sakina Wound Swelling: None Wound Bed Color: Yellow Wound Bed Constitution: Adhered Slough (100%) Wound Edges: Not Attached Site Odor: None Site Measurement - Head-to-Toe Length X Width X Depth (cm): 0.6x0.4x0.2 Pressure Injury Stage: Unstageable Pressure Injury Present on Admit: Yes Skin Integrity Problem Comment: Unstageable pressure injury present on admission. Wound care will round again at the end of the week. Maryjane Jones RN Wound care team Left Lateral Sacrum Pressure Injury Dressing Type: Open to Air Exudate Amount: None Sakina Wound Tissue: Blanching, Painful/Tender Sakina Wound Swelling: None Wound Bed Color: [place], Yellow Wound Bed Constitution: Red/[place] - Non Granular Tissue (10%), Adhered Slough (90 %) Site Measurement - Head-to-Toe Length X Width X Depth (cm): 3.4x1.4x0.1 Pressure Injury Stage: Unstageable Pressure Injury Present on Admit: Yes Skin Integrity Problem Comment: Unstageable pressure injury present on admission. This is one of the older pressure injuries. Wound care will round again at the end of the week. Guadalupe REMBERTOON in room for care. Maryjane Jones RN Wound care team. Left Medial Sacrum Pressure Injury Dressing Type: Open to Air Exudate Amount: None Sakina Wound Tissue: Blanching, Painful/Tender Sakina Wound Swelling: None Wound Bed Color: Yellow Wound Bed Constitution: Adhered Slough (100%) Site Odor: None Pressure Injury Stage: Unstageable Pressure Injury Present on Admit: Yes Skin Integrity Problem Comment: Unstageable pressure injury present on admission. Wound care will round again at the end of the week. Guadalupe CWON in room for care. Maryjane Jones RN Wound care team Right Proximal Sacrum Pressure Injury Dressing Type: Open to Air Exudate Amount: None Sakina Wound Tissue: Blanching, Painful/Tender Sakina Wound Swelling: None Wound Bed Color: Yellow Wound Bed Constitution: Adhered Slough (100%) Site Odor: None Site Measurement - Head-to-Toe Length X Width X Depth (cm): 3.5x1.8x0.1 Pressure Injury Stage: Unstageable Pressure Injury Present on Admit: Yes Skin Integrity Problem Comment: This is an older unstageable pressure injury that is present on admission. Wound care will round again at the end of the week. Guadalupe CWON in room for care. Maryjane Jones RN Wound care team. Right Medial Sacrum Pressure Injury Dressing Type: Open to Air Exudate Amount: None Sakina Wound Tissue: Blanching, Painful/Tender Sakina Wound Swelling: None Wound Bed Color: Yellow Wound Bed Constitution: Adhered Slough (100%) Site Odor: None Site Measurement - Head-to-Toe Length X Width X Depth (cm): 0.7x0.6x0.2 Pressure Injury Stage: Unstageable Pressure Injury Present on Admit: Yes Skin Integrity Problem Comment: Unstageable pressure injury present on admission. Wound care will round again at the end of the week. Guadalupe FRAGOSO in room for care. Maryjane Jones RN Wound care team
--- NOTE | 2017-09-28 11:31 | ASMTCASEMG ---
Living Arrangements What is your living Answers: Alone arrangement? Who do you live with? Type Of Residence What kind of residence do Answers: House you live in? Discharge Plan Comments Coordination Status Comments Notes: Pt is a 67 y/o man admitted for worsening pain of chronic wounds. Pt was recently here a month ago w/ a similar presentation. Pt discharged to [facility] after his hospitalization. Therapies have been ordered and awaiting recommendations. Needs are TBD at this time. Wound care is involved. CM to follow. Plan: TBD Date Signed: 09/28/2017 11:31 AM Electronically Signed By:MARK Mckeon
--- NOTE | 2017-09-28 11:36 | GCON ---
[f rep st] CONSULTATION INFECTIOUS DISEASE CONSULTATION DATE OF CONSULTATION: 09/28/2017 PHYSICIAN REQUESTING CONSULTATION: Denis Ventura. REASON FOR CONSULTATION: Query etiology of lower extremity wounds. HISTORY OF PRESENT ILLNESS: A 67-year-old male with multiple medical problems and recent hospitalization from 08/31 to 09/10, to manage a history of falling and atrial fibrillation, who was discharged to [facility] [place] and has had progressive weakness since his discharge at that time. Further, patient describes gradually increasing pain related to his lower extremities and the lower extremity wounds as well as his buttock area. He denies fevers, chills, night sweats. Additional complaints today are 5 loose bowel movements this morning. He denies any abdominal pain. No respiratory symptoms. Patient has had a catheter in for the last couple weeks due to prostate enlargement and needing a TURP. REVIEW OF SYSTEMS: A complete 10-point review of systems was performed and is negative except as mentioned in the HPI. PAST MEDICAL AND SURGICAL HISTORY: 1. Patient had cor pulmonale, pulmonary hypertension, and obstructive sleep apnea. 2. Carries a diagnosis of chronic renal insufficiency but creatinine was normal on admission. 3. Coronary artery disease status post CABG. 4. Chronic atrial fibrillation on Eliquis. 5. Diabetes and lower extremity neuropathy, peripheral arterial disease, specifics are unknown. 6. BPH. SOCIAL HISTORY: nursing home facility. No alcohol or tobacco. FAMILY HISTORY: Reviewed and noncontributory. PHYSICAL EXAM: VITAL SIGNS: Blood pressure 133/68, heart rate 107, respiratory rate 18, saturation 94% on room air, temperature 36.6. He has been afebrile throughout his hospital course. GENERAL: This is a pleasant elderly male, lying in bed in no acute distress. HEENT: Fair dentition. Moist mucous membranes. No ulcerations or exudate. NECK: Supple. CARDIOVASCULAR: Irregular, irregular. No murmurs. CHEST: Decreased breath sounds in the bases. Clear to auscultation bilaterally. He is breathing easy. ABDOMEN: Soft, nontender. Bowel sounds are present. : No scrotal edema. Miller was in place. Some mild inguinal intertrigo. BACK: The patient had multiple dime to nickel-sized pressure ulcers that are not stageable on his bottom. EXTREMITIES: Patient had nonpalpable pulses with multiple lower extremity wounds. Please see wound care note for specifics of all but major wounds, 1 was on the dorsum of his foot with 100% necrotic material in the base. It is not unstageable. His left posterior/medial calf, a large 12.5 x 6.6 x 0.2 ulcer that has an irregular border that is painful, has some mild hyperemia around the adjacent wound, and almost 80% dried exudate in the base. Also another wound with a clean base on the right anterior cooper. The patient also had slow capillary refill and no hair growth of his lower legs. NEUROLOGICAL: He no focal deficits were noted. He is moving all 4 extremities equally. He was able to move his himself around in the bed. No cranial nerve deficit. He was alert and oriented x4. LABORATORY: White count 10.7, hematocrit 38, platelets of 333, 76% neutrophils. ESR 52, CRP 80, creatinine 0.8, BUN 30. ASSESSMENT/PLAN: This is a 67-year-old male with underlying diabetes, lung disease, and coronary artery disease, who has multiple processes going on. 1. Pressure ulcers on his sacrum. 2. Lower extremity ulcerations that are likely ischemic in nature. No active infection identified. 3. New-onset diarrhea since broad-spectrum antibiotics were started. RECOMMENDATIONS: 1. Discontinue Zosyn as no active infection on the sacral or lower extremities. 2. Rule out Clostridium difficile. 3. Would obtain a CTA runoff of the lower extremity to evaluate for targets for PTCA vs vascular surgery, which could help heal his lower extremity ulcers. 4. May need eventual surgical consult for wound on his dorsum of his left foot for debridement, but would find out blood flow to the lower extremities first. Case was discussed with wound healing team as well as Dr. Ventura and care was coordinated. ADDENDUM: Patient with unexplained hypotension and tachycardia later in the afternoon. 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 Would recommend blood cultures. Reasonable to start empiric vancomycin until rule out bacteremia. Greater than 70 minutes spent on this patients care, greater than 50% of time spent counseling, educating, and coordinating care regarding the above mentioned plan. /[id number]/MODL MTDD
[2017-09-28] MEDS: INSULIN LISPRO 100 UNIT/ML SC SCH ×2 (12:07→17:03)
--- NOTE | 2017-09-28 13:53 | PDMN ---
Medical Necessity Medical necessity: Pt meets IP criteria per MD; est los >2 mn for eval/tx of bilateral leg wounds, worsening sacral decub & progressive weakness; admit for further workup/monitoring, IV abx, ID/Wound care consults, possible surgical intervention & therapies; hx CHF, cor pulmonale, CAD s/p CABG, AFIB on AC, renal insufficiency & diabetes; per H&P & order 09/27/17
[2017-09-28] MEDS ORDERED: NS 1,000 ML IV ONE (13:56)
--- NOTE | 2017-09-28 14:01 | HOSPPROG ---
Hospitalist Progress Note Assessment/Plan: ADDENDUM TO MY NOTE FROM EARLIER TODAY AFTER MY MORNING VISIT CRITICAL CARE NOTE 40+ minutes critical care time with the patient this afternoon and evening I spoke earlier in the day today with Dr. Dilia Drew from Infectious Disease who saw the patient for me. She felt that at the time the wounds appeared to be consistent with vascular insufficiency from an arterial side, as opposed to infection. We discussed my reluctance to completely rule out the idea of infection, and that the lesions on his calves are not necessarily the most typical location for arterial insufficiency. Nonetheless he certainly does have quite a bit of tenderness and no he has peripheral vascular disease. We continued with wound care through the day, and my plan had been to give him some IV hydration to try and improve the pre renal azotemia before considering giving him a contrast load to do angiography or CT angiography. However later in the afternoon the patient did develop significant acute hypotension, tachycardia, without any change in symptoms. There was no fever. However on further assessment blood test showing an elevated lactate level at 3.3 albeit within normal CO2 and anion gap. Liver panel is normal, there was no worsening of anemia infected white blood cell count is better than yesterday. Nonetheless I reviewed this in detail with Dr. Drew and we considered the possibility that this could represent sepsis which would be severe given the lactate and the hypotension. We have obtained blood cultures and continuing antibiotics at this time. He has started IV fluid resuscitation which has resolved his hypotension so far. On my repeat examination the patient his mentation remains good, skin color remains good, and he maintains his baseline mentation from this morning. He is not showing any signs of respiratory distress as clear lung exam, though somewhat decreased capillary refill in the feet as well as the tips of the fingers. I do not see anything that this time looks to me like any definite acute ischemic emergency in his legs or feet. I had planned earlier to do an MRI of the left foot to rule out deep tissue infection, though Dr. Drew had decided against that as she thought that this was a vascular issue. That was after her visit early this morning. As long as he remains stable through the evening will try to hold off on making a decision about which imaging test to do tonight. However if he becomes unstable want to either look within MRI for deep infection in his foot, or look at his vascular supply to be sure that he is getting appropriate arterial supply, depending on how his feet and legs look at the time. Again it would be good to see an improvement in his BUN further than we have seen so far before giving IV contrast for CT scan of possible. Objective: Vital Signs Temp Pulse Resp BP Pulse Ox 36.8 C 94 16 83/47 L 90 L 09/28/17 12:00 09/28/17 12:00 09/28/17 12:00 09/28/17 12:00 09/28/17 12:00 09/27/17 09/28/17 09/29/17 06:59 06:59 06:59 Intake Total 350 Output Total 1525 Balance -1175 ICD10 Worksheet Patient Problems: Problems Problem Status Onset Lower limb ulcer Acute Atrial fibrillation Acute Dehydration Acute Weakness Acute chronic disease mgmt/transitional care Acute
[2017-09-28 14:53] LABS: PLATELET COUNT 329 10^3/uL (150-400)
[2017-09-28] MEDS: VANCOMYCIN HCL/NORMAL SALINE 250 ML IV SCH (16:24)
[2017-09-28] MEDS: LIDO/ZINC OX/CLOTRIMAZOLE (MAD) 116 GM CREAM TP SCH (21:52)
[2017-09-28] MEDS: ASPIRIN 81 MG CHEWABLE TAB PO SCH (21:55)
[2017-09-28] MEDS: METHENAMINE MANDELATE PO SCH (21:55)
[2017-09-28] MEDS: ATORVASTATIN CALCIUM 20 MG TAB PO SCH (21:55)
[2017-09-28] MEDS: INSULIN GLARGINE 100 UNITS/ML UNIT SC SCH (21:56)
[2017-09-29] MEDS: VANCOMYCIN HCL/NORMAL SALINE 250 ML IV SCH ×3 (02:06→17:44)
[2017-09-29] MEDS: oxyCODONE IR 5 MG TAB PO PRN ×3 (04:59→14:22)
[2017-09-29] MEDS: LIDO/ZINC OX/CLOTRIMAZOLE (MAD) 116 GM CREAM TP SCH ×2 (08:15→21:53)
[2017-09-29] MEDS: ACETAMINOPHEN 325 MG TAB PO PRN (09:26)
[2017-09-29] MEDS: CETIRIZINE 10 MG TAB PO SCH (09:27)
[2017-09-29] MEDS: glyBURIDE 5 MG TAB PO SCH ×2 (09:27→18:33)
[2017-09-29] MEDS: metFORMIN HCL 500 MG TAB PO SCH ×3 (09:28→18:29)
[2017-09-29] MEDS: GABAPENTIN 300 MG CAP PO SCH ×3 (09:28→21:52)
[2017-09-29] MEDS: APIXABAN 5 MG TAB PO SCH ×2 (09:28→21:51)
[2017-09-29] MEDS: TORSEMIDE 20 MG TAB PO SCH ×2 (09:30→22:00)
[2017-09-29] MEDS: TAMSULOSIN HCL 0.4 MG CAP PO SCH (09:31)
[2017-09-29] MEDS: FUROSEMIDE 40 MG TAB PO SCH (09:34)
[2017-09-29] MEDS: METOPROLOL TARTRATE 50 MG TAB PO SCH ×2 (09:35→21:51)
[2017-09-29] MEDS: SPIRONOLACTONE 25 MG TAB PO SCH (09:35)
[2017-09-29] MEDS: LOSARTAN POTASSIUM 50 MG TAB PO SCH (09:37)
[2017-09-29] MEDS: POTASSIUM CL 20 MEQ TAB PO SCH (09:37)
[2017-09-29] MEDS: INSULIN LISPRO 100 UNIT/ML SC SCH ×3 (10:00→18:29)
[2017-09-29] MEDS ORDERED: LORazepam 1 MG TAB PO ONE ×2 (11:20→14:30)
--- NOTE | 2017-09-29 11:23 | HOSPPROG ---
Hospitalist Progress Note Assessment/Plan: DIAGNOSES: * acute severe sepsis episode with lactic acidosis September 28, resolved with fluid resuscitation * diabetic foot infection present on admission * Needing imaging to define question of any deep infection such as abscess or osteomyelitis * new wounds of both legs with infection at ulcers of left leg present on admission * multiple sacral and right and left buttock decubitus ulcers unstageable present on admission * microbiology: Proteus and MRSA growing from the wound on the medial left calf * iron deficiency anemia, new diagnosis at this time * Normal ferritin likely reflects significant inflammation but microcytic anemia and low iron saturation are diagnostic in this case * Needs iron supplements which I have started here * At some point will need to consider diagnostic assessment with endoscopies, but this can be done after we manage his infections and make progress on a skin wounds * significant deconditioning, gait instability, high fall risk * diabetes mellitus type 2 * Sugars notably improved at this point and in target range for inpatient care * chronic right and left heart failure, appears approximately stable at baseline compensation at this time * obstructive sleep apnea and pulmonary hypertension, stable * chronic atrial fibrillation on chronic anticoagulation I examined the patient today clue in all of his wounds together with Dr. Bita Tate et of infectious disease. At this point we are both convinced that he has significant infection in his foot and likely significant infection in the wounds of his left calf. Looking at his left foot at this time the toes are all warm and pink with normal sensation and not painful. The areas of his foot and heel and ankle that are not involved with the cellulitic process and the ulcer are warm with good color and are painless and nontender and with normal sensation. At this point I do know the patient has some peripheral vascular disease but I do not believe that his foot process is a vascular process but is a diabetic foot infection. The ulcers on his lower legs bilaterally are multiple and painful even the ones that did not necessarily visually look infected. These are not consistent to me due to their location and the appearance of his feet with an arterial atherosclerotic or embolic phenomenon. Dr. Tate and I did discuss the possibility of some type of vasculitis causing skin ulcerations on the lower legs. He does not have other signs or symptoms of vasculitis elsewhere in his body, but it is reasonable to consider this and we have ordered some serology test to begin assessing that. Either way it does appear that he likely has infectious process of the ulcers on the left medial calf in this very likely is secondary infection of either pressure ulcers or vasculitic ulcers or some similar process. He did resolve his sepsis episode yesterday fairly readily with resumption of antibiotics and aggressive fluid resuscitation. There was a lactic acidosis noted and that resolved through the evening. PLANS: * Continue vancomycin, and add Unasyn at this point * MRI had been canceled yesterday after Dr. Drew initial visit, however at this point feel it is necessary to proceed with imaging of his foot; due to his claustrophobia he will require lorazepam and due to his pain he will need some pain medicine to be able to lie still * I have ordered some iron replacement and will need to continue that as an oral therapy ongoing * Will eventually need further diagnostic assessment for the iron deficiency * Fall risk precautions, PT and OT * His chronic anticoagulation for AFib will handle DVT prophylaxis here * Continue his current chronic heart therapies * Continue to treat and monitor sugars carefully here goal range less than 180 without low sugars SUBJECTIVE: Still much pain at his wounds, any complains of feeling claustrophobic and skin care mattress Feels weak and tired No new symptoms overnight, no chills or sweats OBJECTIVE Vitals reviewed: Since his sepsis episode with hypotension and tachycardia yesterday he has had better blood pressures following the fluid resuscitation. He still has some mildly tachycardic AFib but mostly the AFib is in good rate control. Respirations have been good and there has not been fever overnight Exam: alert oriented still looking mildly uncomfortable due to pain but not in any distress skin warm dry color ok resps not labored lungs clear BSs heart regular abd soft nondistended nontender, bowel sounds present limbs his left foot has less edema over the dorsum but still looks cellulitic, and the open ulcer on the distal dorsum of the foot is now weeping fluid more actively and has a very foul odor. The ulcers on the left lower leg are notable mostly for a significant increase in drainage of watery blood tinged and probably slightly purulent fluid coming from the 2 largest cultures which on the medial calf. There is a little bit less cellulitis round these ulcers but there is now a cellulitic process progressing up the medial aspect of the calf and medial thigh to near the groin. The other ulcers on the left lower leg and right lower leg are not showing nearly as much drainage and no surrounding cellulitis but they remain very tender iv site ok Microbiology: Proteus and MRSA growing from the largest calf wound on the left leg medially Blood cultures no growth so far from yesterday Laboratory data: Sugars in good range Objective: Vital Signs Temp Pulse Resp BP Pulse Ox 37.2 C 82 16 123/85 H 91 L 09/29/17 08:00 09/29/17 10:19 09/29/17 08:00 09/29/17 08:00 09/29/17 08:00 Laboratory Results 09/28/17 14:30 09/28/17 14:30 09/28/17 09/29/17 09/30/17 06:59 06:59 06:59 Intake Total 350 2500 Output Total 1525 1950 Balance -1175 550 - Time Spent With Patient Time Spent with Patient: greater than 35 minutes Time Spent with Patient: Greater than 35 minutes spent on this patients care, greater than 50% of time spent counseling, educating, and coordinating care regarding the above mentioned plan. ICD10 Worksheet Patient Problems: Problems Problem Status Onset Lower limb ulcer Acute Atrial fibrillation Acute Dehydration Acute Weakness Acute chronic disease mgmt/transitional care Acute
--- NOTE | 2017-09-29 11:27 | PCMIDPN ---
Assessment/Plan: 1. Extensive painful lower extremity ulcerations, left greater than right with possible secondary bacterial infection/cellulitis: Query arterial insufficiency, verses other etiology ? vasculitis--will send ANCA tests. He does have a foul-smelling ulceration on the dorsum of the left foot that is concerning, as well as what appears to be worsening samra ulcer erythema that is extending up the left leg. Continue vancomycin; will also add back coverage for gram negatives and anaerobes in the form of Unasyn 3 g IV q.6 hours. Wound care to see him later this pm. 2. Multiple superficial ulcerations on the buttocks: HSV PCR sent for completeness' sake, although ulcerations mostly were dessicated. 3. Intertriginous candidiasis: Start nystatin powder. Over 30 min was spent with this patient today. Case discussed and patient seen with Dr. Ventura. 09/29/17 11:29 Subjective: Vancomycin added back last night when patient's blood pressure dropped and he appeared to be septic. Blood pressure has stabilized today. Patient complaining of the bed. Objective: Vancomycin 1 g IV q.12 hours day 1 No fevers Vital Signs Temp Pulse Resp BP Pulse Ox 37.2 C 82 16 123/85 H 91 L 09/29/17 08:00 09/29/17 10:19 09/29/17 08:00 09/29/17 08:00 09/29/17 08:00 Laboratory Results 09/28/17 14:30 09/28/17 14:30 09/28/17 09/29/17 09/30/17 05:59 05:59 05:59 Intake Total 350 2500 Output Total 1525 1950 Balance -1175 550 ESR 52 MM/HR (0-20) H 09/27/17 11:30 C-Reactive Protein 80.2 mg/L (<10.0) H 09/27/17 11:30 Ulcer left lower extremity with MRSA and Proteus, susceptible to Unasyn - Physical Exam General Appearance: obese EENT: pharynx normal Respiratory: lungs clear Extremities: other (Left lower extremity: Extensive superficial ulceration with greenish exudate and samra-ulcer erythema that is extending up the inner aspect of his left leg. The dorsum of the foot is notable for a half-dollar sized foul-smelling lesion near the toes. It is unclear how deep this is. Is quite painful. Both of his feet are warm. Patient's right lower extremity is notable for several superficial and some are large ulcerations that are quite weepy. Buttocks are notable for several round superficial ulcerations, some are tiny, some are dime-sized. They do not look secondarily infected.) Skin: other (Patient has intertriginous candidiasis of his groin bilaterally) ICD10 Worksheet Patient Problems: Problems Problem Status Onset Lower limb ulcer Acute Atrial fibrillation Acute Dehydration Acute Weakness Acute chronic disease mgmt/transitional care Acute
[2017-09-29] MEDS: AMPICILLIN/SULBACTAM 3 GM in NS 100 ML IV SCH ×2 (12:07→19:34)
--- NOTE | 2017-09-29 13:37 | WOCRNPDOC ---
[facility] Advanced Assessment Note - Skin Integrity Problem, Advanced Assess Left Posterior Medial Calf Dressing Type: Gauze, Kerlix Exudate Amount: Minimal Exudate Color: Reddish/Yellow Exudate Characteristic(s): Serosanguinous Integumentary Issue Intervention: Dressing Changed Sakina Wound Swelling: Mild Wound Bed Color: Red, Yellow (greenish coloring) Wound Bed Constitution: Red/[place] - Non Granular Tissue (50%), Mixed Loose & Adhered Slough/Eschar (50%) Wound Edges: Irregular Site Odor: Foul Skin Integrity Problem Comment: Large wound on medial/posterior aspect of L lower leg, w/ 50% adhered, green-tinged slough/biofilm. Per daughter Marge, this wound was previously a large, intact blister, which has since de-roofed and continues to be painful and exudative. Wound is also malodorous and very tender per patient when assessed by this author. Dressing applied yesterday (09/28) to promote autolysis of this wound was saturated, removed by medical physics professorKARRI Burroughs this morning. Will have nursing apply 1/4 strength Dakins solution BID instead to help manage exudate, reduce odor, and debride slough. Wound RN will evaluate site again tomorrow. Left Dorsal Foot Dressing Type: Gauze, Kerlix Exudate Amount: Minimal Exudate Characteristic(s): Serosanguinous Integumentary Issue Intervention: Dressing Changed Sakina Wound Tissue: Erythema, Swollen Wound Bed Color: Black, Red, Yellow, [place] Wound Bed Constitution: Red/[place] - Non Granular Tissue (20%), Adhered Slough (50 %), Unstable Eschar (30%) Site Odor: Foul Skin Integrity Problem Comment: Malodorous wound with 80% necrotic tissue; eryrthema and swelling periwound. Dressing applied yesterday to promote autolysis of necrotic tissue was saturated, removed by RN this morning. Will have nursing apply Dakins 1/4 strength BID to reduce bioburden in this wound. Patient to have an MRI today to r/o osteomyelitis. Wound RN will follow up tomorrow to re-assess plan. Right Anterior Lower Distal Leg Dressing Type: Allevyn Life Dressing Description: Clean/Dry Exudate Amount: Minimal Exudate Color: Reddish/Yellow Exudate Characteristic(s): Serosanguinous Sakina Wound Tissue: Erythema, Painful/Tender Wound Bed Color: Red Wound Bed Constitution: Red/[place] - Non Granular Tissue Skin Integrity Problem Comment: Large, de-roofed blister noted to R lashell MANZO. Per daughter's report, this blister opened up over the last week. It is currently exudative, and very painful for the patient. Advised medical physics professorKARRI Burroughs to cover wound w/ Adaptic Touch contact layer to prevent recurrent truama to the underlying tissues w/ dressing removal. Will have nursing change outer [facility] q4 days and PRN saturation.
--- NOTE | 2017-09-29 15:04 | ASMTLACE ---
GINO Acuity / Level of Answers: Yes Care: Did the patient have an inpatient admission? Comorbidities - select Answers: Coronary Artery Disease all that apply Diabetes (uncontrolled or controlled) Moderate or severe liver or renal disease Other Notes: AFib; HTN # of Emergency department Answers: 1-2 visits in the last 6 months Score: 12 Date Signed: 09/29/2017 03:04 PM Electronically Signed By:Bela Lin
[2017-09-29] MEDS: NYSTATIN POWDER 15 GM BTL TP SCH ×2 (17:44→21:53)
[2017-09-29] MEDS: SODIUM HYPOCHLORITE (DAKINS 1/4 STR) 473 ML BTL TP SCH ×2 (17:47→21:52)
[2017-09-29] MEDS: INSULIN GLARGINE 100 UNITS/ML UNIT SC SCH (21:51)
[2017-09-29] MEDS: ASPIRIN 81 MG CHEWABLE TAB PO SCH (21:51)
[2017-09-29] MEDS: METHENAMINE MANDELATE PO SCH (21:52)
[2017-09-29] MEDS: ATORVASTATIN CALCIUM 20 MG TAB PO SCH (21:52)
[2017-09-30] MEDS: AMPICILLIN/SULBACTAM 3 GM in NS 100 ML IV SCH ×5 (01:06→23:54)
[2017-09-30] MEDS: VANCOMYCIN HCL/NORMAL SALINE 250 ML IV SCH ×2 (03:41→15:05)
[2017-09-30] MEDS ORDERED: PNEUMOC 13-VAL CONJ-DIP CRM/PF 0.5 ML SYR IM ONE (03:50)
[2017-09-30] MEDS: ACETAMINOPHEN 325 MG TAB PO PRN (07:50)
[2017-09-30] MEDS: oxyCODONE IR 5 MG TAB PO PRN ×4 (07:51→22:55)
[2017-09-30] MEDS: LIDO/ZINC OX/CLOTRIMAZOLE (MAD) 116 GM CREAM TP SCH ×2 (08:00→20:12)
[2017-09-30] MEDS: INSULIN LISPRO 100 UNIT/ML SC SCH ×3 (09:03→17:14)
[2017-09-30] MEDS: metFORMIN HCL 500 MG TAB PO SCH ×2 (09:04→18:21)
[2017-09-30] MEDS: SPIRONOLACTONE 25 MG TAB PO SCH (09:04)
[2017-09-30] MEDS: METOPROLOL TARTRATE 50 MG TAB PO SCH ×2 (09:04→21:13)
[2017-09-30] MEDS: glyBURIDE 5 MG TAB PO SCH ×2 (09:05→18:12)
[2017-09-30] MEDS: APIXABAN 5 MG TAB PO SCH ×2 (09:05→20:08)
[2017-09-30] MEDS: TORSEMIDE 20 MG TAB PO SCH ×2 (09:05→21:13)
[2017-09-30] MEDS: POTASSIUM CL 20 MEQ TAB PO SCH (09:05)
[2017-09-30] MEDS: GABAPENTIN 300 MG CAP PO SCH ×3 (09:07→20:08)
[2017-09-30] MEDS: TAMSULOSIN HCL 0.4 MG CAP PO SCH (09:07)
[2017-09-30] MEDS: CETIRIZINE 10 MG TAB PO SCH (09:07)
[2017-09-30] MEDS: FUROSEMIDE 40 MG TAB PO SCH (09:08)
--- NOTE | 2017-09-30 11:09 | PCMIDPN ---
Assessment/Plan: 1. Extensive painful lower extremity ulcerations, left greater than right with secondary bacterial infection of the left inner calf ulceration/left thigh cellulitis: Patient's left thigh cellulitis has resolved. Because he did not tolerate the MRI, will proceed with CT scanning of the left foot to further evaluate for evidence of deeper infection/osteomyelitis of this area. Hopefully this is not the case, and he can be treated with a short course of antibiotics with meticulous wound care moving forward. Of note, if CT does not show evidence of deeper infection, can consider changing antibiotics to p.o. (Doxycycline/ Augmentin) upon discharge to complete 7-10 days of treatment. Vasculitis studies pending, although this seems less likely. Arterial studies are in the works. Vancomycin trough this afternoon. 2. Multiple superficial ulcerations on the buttocks: HSV PCR sent for completeness' sake, although ulcerations mostly were dessicated. 3. Intertriginous candidiasis: Continue nystatin powder. 09/30/17 11:11 Subjective: Patient did not tolerate the MRI and became extremely claustrophobic. He feels much better today. Blood pressure stable. The blanching erythema on his left thigh is gone. His wounds are dressed and I did not take them down today as dressings were just changed. No diarrhea on the antibiotics. Objective: Vancomycin 1 g IV q.12 hours day 2 Unasyn 3 g IV q.6 hours day 1 (antibiotics day 2) T-max 37 degrees for Vital Signs Temp Pulse Resp BP Pulse Ox 36.9 C 98 16 103/72 93 09/30/17 08:00 09/30/17 08:00 09/30/17 08:00 09/30/17 08:00 09/30/17 08:00 Laboratory Results 09/28/17 14:30 09/28/17 14:30 09/29/17 09/30/17 10/01/17 05:59 05:59 05:59 Intake Total 2500 2340 Output Total 1950 2400 Balance 550 -60 ESR 52 MM/HR (0-20) H 09/27/17 11:30 C-Reactive Protein 80.2 mg/L (<10.0) H 09/27/17 11:30 Left lower extremity wound culture with MRSA and Proteus (susceptible to Unasyn) Blood cultures negative - Physical Exam General Appearance: no apparent distress, obese EENT: pharynx normal, No thrush Respiratory: lungs clear Cardiac/Chest: irregularly irregular Extremities: other (Patient's left inner thigh blanching erythema has resolved. All of his ulcerations are wrapped and I did not unwrap them.) Abdomen: non-tender, soft ICD10 Worksheet Patient Problems: Problems Problem Status Onset Lower limb ulcer Acute Atrial fibrillation Acute Dehydration Acute Weakness Acute chronic disease mgmt/transitional care Acute
[2017-09-30] MEDS: SODIUM HYPOCHLORITE (DAKINS 1/4 STR) 473 ML BTL TP SCH ×2 (11:15→20:12)
[2017-09-30] MEDS: LOSARTAN POTASSIUM 50 MG TAB PO SCH (11:24)
[2017-09-30] MEDS: NYSTATIN POWDER 15 GM BTL TP SCH ×3 (11:26→20:12)
[2017-09-30] MEDS ORDERED: IOPAMIDOL (ISOVUE-300) 100 ML BTL ONE (13:48)
--- NOTE | 2017-09-30 15:09 | WOCRNPDOC ---
ROBBIN Advanced Assessment Note - Skin Integrity Problem, Advanced Assess Left Posterior Medial Calf Dressing Type: ABD Pad, Gauze, Kerlix Dressing Description: Clean/Dry, Intact Closure Description: Not Approximated Exudate Amount: Minimal Exudate Color: Reddish/Yellow Exudate Characteristic(s): Serosanguinous Integumentary Issue Intervention: Dressing Changed Sakina Wound Tissue: Swollen, Painful/Tender Sakina Wound Swelling: Mild Wound Bed Color: Red, Yellow (/green) Wound Bed Constitution: Red/[place] - Non Granular Tissue (50%), Mixed Loose & Adhered Slough/Eschar (50%) Wound Edges: Irregular Site Odor: Moderate, Foul Skin Integrity Problem Comment: Gauze with dakins from previous dressing change was very dry and stuck to wound bed. Normal saline applied to remove dressing, but was very painful to patient. KARRI Burroughs gave patient pain meds. Returned to remove dressing with more saline after half an hour. Still painful for patient, but he was able to tolerate. Wound bed cleaned with normal saline, then covered with adaptic touch. Gauze soaked with Dakins and excess squeezed out, then placed over adaptic touch. Covered with ABD pad, wrapped with kerlix, secured with medipore tape and netting. Jessika Bermeo wet suit gluer in room for care, as was patient's daughter Marge. Wound care will round again next week. Left Dorsal Foot Dressing Type: Gauze, Kerlix Dressing Description: Clean/Dry, Intact Closure Description: Not Approximated Exudate Amount: Minimal Exudate Characteristic(s): Dried Integumentary Issue Intervention: Dressing Changed Sakina Wound Tissue: Erythema, Swollen, Painful/Tender Wound Bed Color: Black, Red, Yellow, [place] Wound Bed Constitution: Red/[place] - Non Granular Tissue (20%), Adhered Slough (50 %), Unstable Eschar (30%) Wound Edges: Irregular Site Odor: Moderate, Foul Skin Integrity Problem Comment: Wound is painful for patient. Wound bed cleaned with normal saline, then covered with adaptic touch. Gauze soaked with Dakins and excess squeezed out, then placed over adaptic touch. Covered with ABD pad, wrapped with kerlix, secured with medipore tape and netting. Jessika Bermeo wet suit gluer in room for care, as was patient's daughter Marge. Wound care will round again next week. Right Lower Lateral Leg Dressing Type: Hydrocolloid (Replicare) Dressing Description: Saturated Closure Description: Not Approximated Exudate Amount: Excessive Exudate Color: Reddish/Yellow Exudate Characteristic(s): Serosanguinous Integumentary Issue Intervention: Dressing Changed Sakina Wound Tissue: Erythema, Swollen, Painful/Tender Sakina Wound Swelling: Mild Wound Bed Color: [place], Red Wound Bed Constitution: Red/[place] - Non Granular Tissue Wound Edges: Irregular Skin Integrity Problem Comment: According to KARRI Burroughs, dressing was saturated and sliding off. Removed dressing and cleaned wound bed with normal saline and patted dry. Wound is painful to patient. Puracyn applied. New replicare applied. Secured in place with netting. Right Anterior Lower Distal Leg Dressing Type: Hydrocolloid Other Dressing Type: replicare Dressing Description: Not Intact Exudate Amount: Moderate Exudate Color: Reddish/Yellow Exudate Characteristic(s): Dried, Serosanguinous Integumentary Issue Intervention: Dressing Changed Sakina Wound Tissue: Erythema, Swollen, Painful/Tender Sakina Wound Swelling: Mild Wound Bed Color: Brown, [place], Red Wound Bed Constitution: Scab Skin Integrity Problem Comment: Replicare dressing was not in place and folded over. Wound bed cleaned with normal saline and patted dry. Puracyn applied and covered with new replicare dressing. Secured in place with netting. Left Ischial Tuberosity Pressure Injury Dressing Type: Open to Air Sakina Wound Tissue: Erythema, Swollen Sakina Wound Swelling: Mild Wound Bed Color: Brown, Red, Yellow Pressure Injury Stage: Unstageable Pressure Injury Present on Admit: Yes Skin Integrity Problem Comment: Patient states that wound is painful, and uncomfortable to sit on. Wound bed darker, scabbed over appearance. KARRI Burroughs stated that herpes test pending for wounds to patient's sacrum, coccyx , and ischium, ordered by Dr Tate. MAD cream applied by KARRI Burroughs. Wound care will round again next week.
--- NOTE | 2017-09-30 16:47 | ASMTCMCOM ---
CM Note CM Note Notes: Spoke w/dtr Marge, she states that pt lives with her but she cannot manage him at home, he needs to go back to SNF. She will be away for work most of October. She states pt thinks he can go home, per PT/OT pt needs SNF. Dtr does want pt moves from [facility] to [facility] [place] w/f in am. DC Plan: SNF Date Signed: 09/30/2017 04:46 PM Electronically Signed By:Trish Oliver RN
--- NOTE | 2017-09-30 18:40 | HOSPPROG ---
Hospitalist Progress Note Assessment/Plan: DIAGNOSES: * acute severe sepsis episode with lactic acidosis September 28, resolved with fluid resuscitation * diabetic foot infection present on admission * Needing imaging to define question of any deep infection such as abscess or osteomyelitis * new wounds of both legs with infection at ulcers of left leg present on admission * multiple sacral and right and left buttock decubitus ulcers unstageable present on admission * microbiology: Proteus and MRSA growing from the wound on the medial left calf * iron deficiency anemia, new diagnosis at this time * Normal ferritin likely reflects significant inflammation but microcytic anemia and low iron saturation are diagnostic in this case * Needs iron supplements which I have started here * At some point will need to consider diagnostic assessment with endoscopies, but this can be done after we manage his infections and make progress on a skin wounds * significant deconditioning, gait instability, high fall risk * diabetes mellitus type 2 * Sugars notably improved at this point and in target range for inpatient care * chronic right and left heart failure, appears approximately stable at baseline compensation at this time * obstructive sleep apnea and pulmonary hypertension, stable * chronic atrial fibrillation on chronic anticoagulation I examined the patient today clue in all of his wounds together with Dr. Bita Tate et of infectious disease. At this point we are both convinced that he has significant infection in his foot and likely significant infection in the wounds of his left calf. Looking at his left foot at this time the toes are all warm and pink with normal sensation and not painful. The areas of his foot and heel and ankle that are not involved with the cellulitic process and the ulcer are warm with good color and are painless and nontender and with normal sensation. At this point I do know the patient has some peripheral vascular disease but I do not believe that his foot process is a vascular process but is a diabetic foot infection. The ulcers on his lower legs bilaterally are multiple and painful even the ones that did not necessarily visually look infected. These are not consistent to me due to their location and the appearance of his feet with an arterial atherosclerotic or embolic phenomenon. Dr. Tate and I did discuss the possibility of some type of vasculitis causing skin ulcerations on the lower legs. He does not have other signs or symptoms of vasculitis elsewhere in his body, but it is reasonable to consider this and we have ordered some serology test to begin assessing that. Either way it does appear that he likely has infectious process of the ulcers on the left medial calf in this very likely is secondary infection of either pressure ulcers or vasculitic ulcers or some similar process. He did resolve his sepsis episode yesterday fairly readily with resumption of antibiotics and aggressive fluid resuscitation. There was a lactic acidosis noted and that resolved through the evening. PLANS: * Continue vancomycin, and Unasyn * I reviewed the CT scan findings with Dr. Tate; is certainly encouraging to find a normal study, however this test is fairly in sensitive compared MRI and will need to follow his clinical course closely. If he has any signs of worsening or failure to resolve his foot infection, would consider attempting MRI scan with general anesthesia. * I have ordered some iron replacement and will need to continue that as an oral therapy ongoing * Will eventually need further diagnostic assessment for the iron deficiency * Fall risk precautions, PT and OT * His chronic anticoagulation for AFib will handle DVT prophylaxis here * Continue his current chronic heart therapies * Continue to treat and monitor sugars carefully here goal range less than 180 without low sugars I did have further discussion in detail with the patient today regarding DNR status, as there was yesterday notation that he has a prior most form stating DNR but his current wishes he came in was full cor. After complete discussion of all the details of what full cor in tails and when and how it is used, the potential result, the potential complications, and other aspects, the person is requesting full cor at this time. He does have understand that he could change this at other times if he wishes. SUBJECTIVE: Still pain is unchanged at the wounds in his foot in legs No other acute symptoms Did have severe anxiety episode despite Ativan and was unable to answer the MRI scanner yesterday to look at his foot OBJECTIVE Vitals reviewed: Overall stable without fever Exam: alert oriented does appear bit more relaxed to me today skin warm dry color ok resps not labored lungs clear BSs heart regular abd soft nondistended nontender, bowel sounds present limbs overall I think that his left foot and all of his wounds do look a slight bit better today with less swelling or erythema where it was present, certainly less malodorous today and with less drainage iv site ok Microbiology: Proteus and MRSA growing from the largest calf wound on the left leg medially Blood cultures no growth so far from yesterday Laboratory data: Sugars in good range As the patient was unable to tolerate MRI I ordered a CT scan of his left foot to be done today with contrast. This was completed I reviewed images Dr. Cathy Ace. There is evidence of swelling but no evidence of osteomyelitis and no evidence of deep soft tissue infection in the foot. Dr. Ace and I did review that this test is notably less sensitive than MRI for these abnormalities, but at this time the patient unable to tolerate that procedure even with Ativan. Objective: Vital Signs Temp Pulse Resp BP Pulse Ox 36.4 C 112 H 16 128/69 H 95 09/30/17 16:00 09/30/17 16:00 09/30/17 16:00 09/30/17 16:00 09/30/17 16:00 Microbiology 09/29/17 11:20 Herpes Simplex Virus I (PCR) - Final Unspecified Hsv-1 Dna Not Detected Herpes Simplex Virus II (PCR) - Final Hsv-2 Dna Not Detected - Final Laboratory Results 09/28/17 14:30 09/28/17 14:30 09/29/17 09/30/17 10/01/17 06:59 06:59 06:59 Intake Total 2500 2340 Output Total 1950 2400 2150 Balance - Time Spent With Patient Time Spent with Patient: greater than 35 minutes Time Spent with Patient: Greater than 35 minutes spent on this patients care, greater than 50% of time spent counseling, educating, and coordinating care regarding the above mentioned plan. ICD10 Worksheet Patient Problems: Problems Problem Status Onset Lower limb ulcer Acute Atrial fibrillation Acute Dehydration Acute Weakness Acute chronic disease mgmt/transitional care Acute
[2017-09-30] MEDS: ASPIRIN 81 MG CHEWABLE TAB PO SCH (20:08)
[2017-09-30] MEDS: INSULIN GLARGINE 100 UNITS/ML UNIT SC SCH (20:08)
[2017-09-30] MEDS: ATORVASTATIN CALCIUM 20 MG TAB PO SCH (20:09)
[2017-09-30] MEDS: METHENAMINE MANDELATE PO SCH (20:17)
[2017-10-01] MEDS: VANCOMYCIN HCL/NORMAL SALINE 250 ML IV SCH ×2 (03:39→16:00)
[2017-10-01] MEDS: oxyCODONE IR 5 MG TAB PO PRN ×4 (03:56→17:33)
[2017-10-01] MEDS: AMPICILLIN/SULBACTAM 3 GM in NS 100 ML IV SCH ×3 (05:37→17:32)
[2017-10-01] MEDS: ACETAMINOPHEN 325 MG TAB PO PRN ×2 (07:43→12:53)
[2017-10-01] MEDS: SODIUM HYPOCHLORITE (DAKINS 1/4 STR) 473 ML BTL TP SCH ×2 (07:44→22:03)
[2017-10-01] MEDS: NYSTATIN POWDER 15 GM BTL TP SCH ×3 (07:45→23:40)
[2017-10-01] MEDS: GABAPENTIN 300 MG CAP PO SCH ×3 (07:56→21:31)
[2017-10-01] MEDS: INSULIN LISPRO 100 UNIT/ML SC SCH ×3 (07:56→18:02)
[2017-10-01] MEDS: TORSEMIDE 20 MG TAB PO SCH ×2 (07:57→21:31)
[2017-10-01] MEDS: SPIRONOLACTONE 25 MG TAB PO SCH (07:57)
[2017-10-01] MEDS: glyBURIDE 5 MG TAB PO SCH ×2 (07:57→18:02)
[2017-10-01] MEDS: APIXABAN 5 MG TAB PO SCH ×2 (07:57→21:31)
[2017-10-01] MEDS: TAMSULOSIN HCL 0.4 MG CAP PO SCH (07:57)
[2017-10-01] MEDS: LOSARTAN POTASSIUM 50 MG TAB PO SCH (07:58)
[2017-10-01] MEDS: POTASSIUM CL 20 MEQ TAB PO SCH (07:58)
[2017-10-01] MEDS: METOPROLOL TARTRATE 50 MG TAB PO SCH ×2 (07:59→21:31)
[2017-10-01] MEDS: CETIRIZINE 10 MG TAB PO SCH (08:00)
[2017-10-01] MEDS: FUROSEMIDE 40 MG TAB PO SCH (08:00)
[2017-10-01] MEDS: LIDO/ZINC OX/CLOTRIMAZOLE (MAD) 116 GM CREAM TP SCH ×2 (08:00→23:36)
--- NOTE | 2017-10-01 10:44 | ASMTCMCOM ---
CM Note CM Note Notes: Spoke w/pt re; dc back to [facility], pt agrees a little more rehab is a good idea. CM expressed to him, that his daughter was considering changing SNF to [facility], after some discussion, pt prefers to return to . CM called his daughter Marge and she agrees with plan. DC Plan: SNF/ [facility] Date Signed: 10/01/2017 10:44 AM Electronically Signed By:Trish Oliver RN
[2017-10-01] MEDS: metFORMIN HCL 500 MG TAB PO SCH (12:34)
--- NOTE | 2017-10-01 15:05 | PCMIDPN ---
Assessment/Plan: Assessment/Plan: * Bilateral lower extremity ulcerations with left lower extremity cellulitis: Cellulitis largely resolved with some residual erythema over anterior cooper; CT scan does not show evidence of osteomyelitis. Continue vancomycin (MRSA) and Unasyn targeting Proteus/mixed sarah. Once patient ready for transition to intermediate facility, can complete another week of doxycycline 100 mg orally twice daily and Augmentin 875 mg orally twice daily. Follow creatinine while on vancomycin. Vancomycin trough of 8.8 appropriate for skin and soft tissue infection. * Multiple superficial buttock ulcerations: Unclear etiology with negative HSV PCR testing. Appear to be improving clinically. 10/01/17 15:02 10/01/17 15:04 10/01/17 15:05 Subjective: Patient notes overall that he is feeling better with less leg pain. Redness over leg has decreased. Objective: Vital Signs Temp Pulse Resp BP Pulse Ox 36.7 C 96 20 101/69 91 L 10/01/17 11:50 10/01/17 11:50 10/01/17 11:50 10/01/17 11:50 10/01/17 11:50 Microbiology 09/29/17 11:20 Herpes Simplex Virus I (PCR) - Final Unspecified Hsv-1 Dna Not Detected Herpes Simplex Virus II (PCR) - Final Hsv-2 Dna Not Detected - Final Laboratory Results 09/28/17 14:30 09/28/17 14:30 09/30/17 10/01/17 10/02/17 05:59 05:59 05:59 Intake Total 2340 400 400 Output Total 2400 3550 Balance -60 -3150 400 ESR 52 MM/HR (0-20) H 09/27/17 11:30 C-Reactive Protein 80.2 mg/L (<10.0) H 09/27/17 11:30 Vancomycin # 3 Unasyn # 2, antibiotics # 3 HSV 1/2 PCR negative C ANCA/P ANCA negative Laboratory Tests 10/01/17 02:50 Vancomycin Trough 8.8 - Physical Exam General Appearance: alert, no apparent distress EENT: No scleral icterus, No thrush Extremities: inflammation (Left lower extremity with resolution of erythema over thigh; faint erythema over anterior cooper; ulcerations with scattered granulation and slough over both lower extremities) Abdomen: non-tender, No distended Skin: other (Superficial ulcerations resolving over bilateral buttocks) - Time Spent With Patient Time Spent with Patient: greater than 25 minutes Time Spent with Patient: Greater than 25 minutes spent on this patients care, greater than 50% of time spent counseling, educating, and coordinating care regarding the above mentioned plan. ICD10 Worksheet Patient Problems: Problems Problem Status Onset Lower limb ulcer Acute Atrial fibrillation Acute Dehydration Acute Weakness Acute chronic disease mgmt/transitional care Acute
[2017-10-01] MEDS: CALCIUM CARBONATE 500 MG CHEWABLE TAB PO PRN (17:33)
--- NOTE | 2017-10-01 18:03 | HOSPPROG ---
Hospitalist Progress Note Assessment/Plan: DIAGNOSES: * acute severe sepsis episode with lactic acidosis September 28, resolved with fluid resuscitation * diabetic foot infection present on admission * new wounds of both legs with infection at ulcers of left leg present on admission * multiple sacral and right and left buttock decubitus ulcers unstageable present on admission * microbiology: Proteus and MRSA growing from the wound on the medial left calf * iron deficiency anemia, new diagnosis at this time * Normal ferritin likely reflects significant inflammation but microcytic anemia and low iron saturation are diagnostic in this case * Needs iron supplements which I have started here * At some point will need to consider diagnostic assessment with endoscopies, but this can be done after we manage his infections and make progress on a skin wounds * significant deconditioning, gait instability, high fall risk * diabetes mellitus type 2 * Sugars overall in desired range * chronic right and left heart failure, appears approximately stable at baseline compensation at this time * obstructive sleep apnea and pulmonary hypertension, stable * chronic atrial fibrillation on chronic anticoagulation PLANS: * Continue vancomycin, and Unasyn for now * I have ordered some iron replacement and will need to continue that as an oral therapy ongoing * Will eventually need further diagnostic assessment for the iron deficiency * Fall risk precautions, PT and OT * His chronic anticoagulation for AFib will handle DVT prophylaxis here * Continue his current chronic heart therapies * Continue to treat and monitor sugars carefully here goal range less than 180 without low sugars * Full cor per the patient's wishes, though that is different than what was checked on a previous most form. SUBJECTIVE: Finally noting perhaps some slight decrease in the pain from his leg and foot wounds, although does complain of increased pain in his buttock and sacral wounds today No fevers chills or sweats Eating well No shortness of breath OBJECTIVE Vitals reviewed: Some mild hypertension, otherwise stable without fever Exam: alert oriented , does not look quite as uncomfortable today skin warm dry color ok resps not labored lungs clear BSs heart regular abd soft nondistended nontender, bowel sounds present limbs there is still moderate amount of swelling over the dorsum of the foot but the ulcer on the dorsum of the foot is no longer so malodorous and is not draining fluid; the wounds on the left leg are no longer draining fluid and are not malodorous but still appear fairly angry. No change in the size of the wounds and no necrotic tissue seen anywhere. Wounds on the right leg overall unchanged wounds on the buttock with no appearance of cellulitis, no drainage, no necrosis iv site ok Microbiology: Proteus and MRSA growing from the largest calf wound on the left leg medially Blood cultures no growth so far HSV test were all negative Laboratory data: Sugars in good range overall Objective: Vital Signs Temp Pulse Resp BP Pulse Ox 36.8 C 100 20 120/73 94 10/01/17 16:00 10/01/17 16:00 10/01/17 16:00 10/01/17 16:00 10/01/17 16:00 Microbiology 09/29/17 11:20 Herpes Simplex Virus I (PCR) - Final Unspecified Hsv-1 Dna Not Detected Herpes Simplex Virus II (PCR) - Final Hsv-2 Dna Not Detected - Final Laboratory Results 09/28/17 14:30 09/28/17 14:30 09/30/17 10/01/17 10/02/17 06:59 06:59 06:59 Intake Total 2340 400 2200 Output Total 2400 3550 1200 Balance -60 -3150 1000 ICD10 Worksheet Patient Problems: Problems Problem Status Onset Lower limb ulcer Acute Atrial fibrillation Acute Dehydration Acute Weakness Acute chronic disease mgmt/transitional care Acute
[2017-10-01] MEDS: FERRO-SEQUELS 65 MG TAB.ER PO SCH (21:30)
[2017-10-01] MEDS: ASPIRIN 81 MG CHEWABLE TAB PO SCH (21:31)
[2017-10-01] MEDS: ATORVASTATIN CALCIUM 20 MG TAB PO SCH (21:31)
[2017-10-01] MEDS: METHENAMINE MANDELATE PO SCH (22:03)
[2017-10-01] MEDS: INSULIN GLARGINE 100 UNITS/ML UNIT SC SCH (22:33)
[2017-10-02] MEDS: AMPICILLIN/SULBACTAM 3 GM in NS 100 ML IV SCH ×5 (00:16→23:42)
[2017-10-02] MEDS: oxyCODONE IR 5 MG TAB PO PRN ×2 (01:00→08:31)
[2017-10-02] MEDS: VANCOMYCIN HCL/NORMAL SALINE 250 ML IV SCH ×2 (03:01→13:48)
[2017-10-02] MEDS ORDERED: CEPACOL LOZENGE PO PRN (04:40)
[2017-10-02] MEDS: NYSTATIN POWDER 15 GM BTL TP SCH ×3 (05:25→21:04)
[2017-10-02] MEDS: LIDO/ZINC OX/CLOTRIMAZOLE (MAD) 116 GM CREAM TP SCH ×3 (05:25→21:03)
[2017-10-02] MEDS: INSULIN LISPRO 100 UNIT/ML SC SCH ×3 (08:30→17:18)
[2017-10-02] MEDS: FERRO-SEQUELS 65 MG TAB.ER PO SCH ×2 (08:30→21:02)
[2017-10-02] MEDS: TORSEMIDE 20 MG TAB PO SCH ×2 (08:31→21:02)
[2017-10-02] MEDS: METOPROLOL TARTRATE 50 MG TAB PO SCH ×2 (08:31→21:04)
[2017-10-02] MEDS: CETIRIZINE 10 MG TAB PO SCH (08:31)
[2017-10-02] MEDS: SPIRONOLACTONE 25 MG TAB PO SCH (08:31)
[2017-10-02] MEDS: LOSARTAN POTASSIUM 50 MG TAB PO SCH (08:32)
[2017-10-02] MEDS: TAMSULOSIN HCL 0.4 MG CAP PO SCH (08:32)
[2017-10-02] MEDS: POTASSIUM CL 20 MEQ TAB PO SCH (08:32)
[2017-10-02] MEDS: APIXABAN 5 MG TAB PO SCH ×2 (08:32→21:02)
[2017-10-02] MEDS: GABAPENTIN 300 MG CAP PO SCH ×3 (08:32→21:02)
[2017-10-02] MEDS: glyBURIDE 5 MG TAB PO SCH ×2 (08:32→17:18)
[2017-10-02] MEDS: FUROSEMIDE 40 MG TAB PO SCH (08:33)
--- NOTE | 2017-10-02 10:44 | HOSPPROG ---
Hospitalist Progress Note Assessment/Plan: DIAGNOSES: * acute severe sepsis episode with lactic acidosis September 28, resolved with fluid resuscitation * diabetic foot infection present on admission * new wounds of both legs with infection at ulcers of left leg present on admission * multiple sacral and right and left buttock decubitus ulcers unstageable present on admission * microbiology: Proteus and MRSA growing from the wound on the medial left calf * iron deficiency anemia, new diagnosis at this time * Normal ferritin likely reflects significant inflammation but microcytic anemia and low iron saturation are diagnostic in this case * Needs iron supplements which I have started here * At some point will need to consider diagnostic assessment with endoscopies, but this can be done after we manage his infections and make progress on a skin wounds * significant deconditioning, gait instability, high fall risk * diabetes mellitus type 2 * Sugars overall in desired range * chronic right and left heart failure, appears approximately stable at baseline compensation at this time * obstructive sleep apnea and pulmonary hypertension, stable * chronic atrial fibrillation on chronic anticoagulation PLANS: * Continue vancomycin, and Unasyn for now; likely to change to doxy and Augmentin upon discharge * His foot will need to be reassessed carefully to ensure complete resolution of infection, and if any concerns about lingering deep infection that was missed on CT, may need to consider MRI with general anesthesia as he could not tolerate MRI with Ativan * I have ordered some iron replacement and will need to continue that as an oral therapy ongoing * States he has had recent colonoscopy but not upper endoscopy. He will need to follow up with Gastroenterology to make sure he is having appropriate assessment. The last studies we have of his cell counts and MCV are from 2016 * Fall risk precautions, PT and OT * His chronic anticoagulation for AFib will handle DVT prophylaxis here * Continue his current chronic heart therapies * Continue to treat and monitor sugars carefully here goal range less than 180 without low sugars; some variability in postprandial numbers may be due to either what he is eating or timing of insulin doses. Will work nurses to help follow that closely. * Full cor per the patient's wishes, though that is different than what was checked on a previous most form. Would consider possible transfer to [facility] facility tomorrow if things continue to do well SUBJECTIVE: Walking around more easily on his foot and feels that his leg ulcers or less painful; however again today notes quite a bit of pain in around his buttock sores. He has been walking more and is walking around the room by himself quite a bit now with walker No fevers chills or sweats Eating well No shortness of breath OBJECTIVE Vitals reviewed: Blood pressure is notably better, some mild tachycardia with his AFib otherwise stable without fever Exam: alert oriented , does not look quite as uncomfortable today skin warm dry color ok resps not labored lungs clear BSs heart regular abd soft nondistended nontender, bowel sounds present I examined his buttock wounds today as they are still sore. There is no erythema swelling induration fluctuance of the tissues around the open ulcers. The open ulcers at this time all have a good clean dry base. There is no drainage from any of these lesions and there is no appearance of any necrotic tissue iv site ok Microbiology: Proteus and MRSA growing from the largest calf wound on the left leg medially Blood cultures no growth so far HSV test were all negative Laboratory data: Sugars mildly elevated for some of the postprandial numbers, but good in the mornings Metabolic panel otherwise normal Objective: Vital Signs Temp Pulse Resp BP Pulse Ox 36.4 C 119 H 18 136/68 H 93 10/02/17 08:09 10/02/17 08:09 10/02/17 08:09 10/02/17 08:09 10/02/17 08:09 Laboratory Results 09/28/17 14:30 10/02/17 05:23 10/01/17 10/02/17 10/03/17 06:59 06:59 06:59 Intake Total 400 2700 Output Total 3550 3050 Balance -3150 -350 ICD10 Worksheet Patient Problems: Problems Problem Status Onset Lower limb ulcer Acute Atrial fibrillation Acute Dehydration Acute Weakness Acute chronic disease mgmt/transitional care Acute
[2017-10-02] MEDS: SODIUM HYPOCHLORITE (DAKINS 1/4 STR) 473 ML BTL TP SCH ×2 (12:54→21:03)
--- NOTE | 2017-10-02 15:16 | PCMIDPN ---
Assessment/Plan: Assessment/Plan: * Bilateral lower extremity ulcerations with left lower extremity cellulitis: Cellulitis has resolved. Ulcerations continue to improve with local wound care. Continue vancomycin and Unasyn while hospitalized. Anticipate transition to doxycycline 100 mg orally twice daily and Augmentin 100 mg orally twice daily at time of discharge which likely will be tomorrow. Plan 6 days of additional antibiotic therapy to complete 10 days in total. * Multiple superficial buttock ulcerations: Unclear etiology with negative HSV PCR testing. Clinical findings and plan discussed with patient, daughter, and care coordinated with case management. 10/02/17 15:13 Subjective: Patient with less pain over lower extremity ulcerations. Eager to return to [facility]. Objective: Vital Signs Temp Pulse Resp BP Pulse Ox 36.4 C 119 H 18 136/68 H 93 10/02/17 08:09 10/02/17 08:09 10/02/17 08:09 10/02/17 08:09 10/02/17 08:09 Laboratory Results 09/28/17 14:30 10/02/17 05:23 10/01/17 10/02/17 10/03/17 05:59 05:59 05:59 Intake Total 400 2700 Output Total 3550 3050 Balance -3150 -350 ESR 52 MM/HR (0-20) H 09/27/17 11:30 C-Reactive Protein 80.2 mg/L (<10.0) H 09/27/17 11:30 Vancomycin # 4 Unasyn # 3, antibiotics # 4 Blood cultures x2 no growth - Physical Exam General Appearance: alert, no apparent distress EENT: No scleral icterus Extremities: inflammation (Left lower extremity erythema over thigh and lower leg resolved) Skin: other (Ulcerations with mixed slough and granulation with continued slow improvement over left lower extremity; ulceration at base of great toe with persistent fibrinous slough) Lymphatic: other (No lymphangitis left lower extremity) ICD10 Worksheet Patient Problems: Problems Problem Status Onset Lower limb ulcer Acute Atrial fibrillation Acute Dehydration Acute Weakness Acute chronic disease mgmt/transitional care Acute
[2017-10-02] MEDS: CALCIUM CARBONATE 500 MG CHEWABLE TAB PO PRN (16:15)
--- NOTE | 2017-10-02 17:09 | ASMTCMCOM ---
CM Note CM Note Notes: Need to make contact with [facility] to see if they have similar wound care supplies as we use/ Dr Monique Date Signed: 10/02/2017 05:09 PM Electronically Signed By:Latonia Coelho LCSW
[2017-10-02] MEDS: INSULIN GLARGINE 100 UNITS/ML UNIT SC SCH (21:01)
[2017-10-02] MEDS: ASPIRIN 81 MG CHEWABLE TAB PO SCH (21:02)
[2017-10-02] MEDS: ATORVASTATIN CALCIUM 20 MG TAB PO SCH (21:02)
[2017-10-02] MEDS: METHENAMINE MANDELATE PO SCH (21:07)
[2017-10-03] MEDS: VANCOMYCIN HCL/NORMAL SALINE 250 ML IV SCH ×2 (02:20→15:20)
[2017-10-03] MEDS: oxyCODONE IR 5 MG TAB PO PRN ×4 (04:05→21:09)
[2017-10-03] MEDS: AMPICILLIN/SULBACTAM 3 GM in NS 100 ML IV SCH ×4 (05:22→23:15)
[2017-10-03] MEDS: ACETAMINOPHEN 325 MG TAB PO PRN (08:10)
[2017-10-03] MEDS: GABAPENTIN 300 MG CAP PO SCH ×3 (08:11→21:09)
[2017-10-03] MEDS: glyBURIDE 5 MG TAB PO SCH ×2 (08:12→18:42)
[2017-10-03] MEDS: INSULIN LISPRO 100 UNIT/ML SC SCH ×3 (08:13→18:42)
[2017-10-03] MEDS: LIDO/ZINC OX/CLOTRIMAZOLE (MAD) 116 GM CREAM TP SCH ×2 (08:39→20:37)
[2017-10-03] MEDS: NYSTATIN POWDER 15 GM BTL TP SCH ×3 (08:39→21:12)
[2017-10-03] MEDS: FERRO-SEQUELS 65 MG TAB.ER PO SCH ×2 (08:40→21:09)
[2017-10-03] MEDS: CETIRIZINE 10 MG TAB PO SCH (08:40)
[2017-10-03] MEDS: SPIRONOLACTONE 25 MG TAB PO SCH (08:40)
[2017-10-03] MEDS: POTASSIUM CL 20 MEQ TAB PO SCH (08:40)
[2017-10-03] MEDS: TAMSULOSIN HCL 0.4 MG CAP PO SCH (08:40)
[2017-10-03] MEDS: APIXABAN 5 MG TAB PO SCH ×2 (08:41→21:09)
[2017-10-03] MEDS: METOPROLOL TARTRATE 50 MG TAB PO SCH ×2 (08:41→21:09)
[2017-10-03] MEDS: LOSARTAN POTASSIUM 50 MG TAB PO SCH (08:41)
[2017-10-03] MEDS: TORSEMIDE 20 MG TAB PO SCH ×2 (08:41→21:09)
[2017-10-03] MEDS: FUROSEMIDE 40 MG TAB PO SCH (08:41)
[2017-10-03] MEDS: SODIUM HYPOCHLORITE (DAKINS 1/4 STR) 473 ML BTL TP SCH (10:35)
[2017-10-03] MEDS ORDERED: LIDOCAINE 2% JELLY 5 ML TUBE TP ONE (13:47)
--- NOTE | 2017-10-03 15:06 | HOSPPROG ---
Hospitalist Progress Note Assessment/Plan: DIAGNOSES: * acute severe sepsis episode with lactic acidosis September 28, resolved with fluid resuscitation * diabetic foot infection present on admission * new wounds of both legs with infection at ulcers of left leg present on admission * multiple sacral and right and left buttock decubitus ulcers unstageable present on admission * microbiology: Proteus and MRSA growing from the wound on the medial left calf * iron deficiency anemia, new diagnosis at this time * Normal ferritin likely reflects significant inflammation but microcytic anemia and low iron saturation are diagnostic in this case * Needs iron supplements which I have started here * At some point will need to consider diagnostic assessment with endoscopies, but this can be done after we manage his infections and make progress on a skin wounds * significant deconditioning, gait instability, high fall risk * diabetes mellitus type 2 * Sugars overall in desired range * chronic right and left heart failure, appears approximately stable at baseline compensation at this time * obstructive sleep apnea and pulmonary hypertension, stable * chronic atrial fibrillation on chronic anticoagulation PLANS: * Continue vancomycin, and Unasyn for now; likely to change to doxy and Augmentin upon discharge * His foot will need to be reassessed carefully over time to ensure complete resolution of infection, and if any concerns about lingering deep infection that was missed on CT, may need to consider MRI with general anesthesia as he could not tolerate MRI with Ativan * I have ordered some iron replacement and will need to continue that as an oral therapy ongoing * States he has had recent colonoscopy but not upper endoscopy. He will need to follow up with Gastroenterology to make sure he is having appropriate assessment. The last studies we have of his cell counts and MCV are from 2016 * Fall risk precautions, PT and OT * His chronic anticoagulation for AFib will handle DVT prophylaxis here * Continue his current chronic heart therapies * Continue to treat and monitor sugars carefully here goal range less than 180 without low sugars; some variability in postprandial numbers may be due to either what he is eating or timing of insulin doses. Will work nurses to help follow that closely. * Full cor per the patient's wishes, though that is different than what was checked on a previous most form. SUBJECTIVE: Finally starting to notice some decrease in pain in his buttock sores in addition to the foot and leg sores No chills or sweats Eating well Slept better with decreased pain OBJECTIVE Vitals reviewed: Blood pressure is notably better, AFib rate reasonable today, no fever Exam: alert oriented , looks more relaxed skin warm dry color ok resps not labored lungs clear BSs heart regular abd soft nondistended nontender, bowel sounds present No change in appearance of buttock wounds, left foot still has edema over the dorsal aspect, still some slight drainage from the wound on the distal foot but no foul odor, leg wounds in dressings which were just placed and I did not examine the leg wounds today but I did review with wound care nurse, she is pleased with how these wounds are improving so far after her dressing changes today iv site ok Microbiology: Proteus and MRSA growing from the largest calf wound on the left leg medially Blood cultures no growth so far HSV test were all negative Laboratory data: Sugars mildly elevated for some of the postprandial numbers, but good in the mornings Metabolic panel otherwise normal Objective: Vital Signs Temp Pulse Resp BP Pulse Ox 36.5 C 100 16 131/83 H 94 10/03/17 14:41 10/03/17 14:41 10/03/17 14:41 10/03/17 14:41 10/03/17 14:41 Laboratory Results 09/28/17 14:30 10/02/17 05:23 10/02/17 10/03/17 10/04/17 06:59 06:59 06:59 Intake Total 2700 300 1500 Output Total 3050 3800 1750 Balance -350 -3500 -250 - Time Spent With Patient Time Spent with Patient: greater than 35 minutes Time Spent with Patient: Greater than 35 minutes spent on this patients care, greater than 50% of time spent counseling, educating, and coordinating care regarding the above mentioned plan. ICD10 Worksheet Patient Problems: Problems Problem Status Onset Lower limb ulcer Acute Atrial fibrillation Acute Dehydration Acute Weakness Acute chronic disease mgmt/transitional care Acute
[2017-10-03] MEDS ORDERED: LIDOCAINE 2% JELLY 5 ML TUBE ONE (15:51)
--- NOTE | 2017-10-03 16:53 | WOCRNPDOC ---
WOCRN Advanced Assessment Note - Skin Integrity Problem, Advanced Assess Left Posterior Medial Calf Dressing Type: Allevyn Life Dressing Description: Intact, Shadowed Exudate Amount: Moderate Exudate Characteristic(s): Serous Integumentary Issue Intervention: Dressing Changed, Conservative Sharp Bedside Debridement Sakina Wound Tissue: Erythema (mild), Painful/Tender Sakina Wound Swelling: Mild Wound Bed Constitution: Granulation Tissue, Adhered Slough Wound Edges: Attached, Not Attached Conservative Sharp Bedside Debridement Performed: Yes Consent Signed for Debridement: Yes Timeout Performed per Protocol: Yes Instrument Used for Debridement: Scapel Measurements After Debridement: 5.2x4.1x0.2 Estimated Blood Loss from Debridement: 0 Conservative Sharp Bedside Debridement Outcome: Down to Viable Tissue, Hemostasis Achieved Conservative Sharp Bedside Debridement Comment: 2% lidocaine jelly used topically for pain control. Patient also had KARRI Burroughs and spiritual care support assisting him with deep breathing and pain control/stress/anxiety control. This was useful for the patient. Debridement was done very slowly and lidocaine was reapplied 3x to be able to debride down to healthy tissue. 40% slough was reduced to 5% slough remaining in the wound bed. Some slough was very loose and was able to be removed with forceps, however about 1/2 was adhered and was sharp debrided with scalpel. Post sharp debridment, healthy granulation tissue underneath was exposed throughout. Patient tolerated procedure relatively well and had recieved 2 mg Dilaudid IV prior to bedside debridement. Patient ok to shower with wound open to air. KARRI Burroughs will reapply dressings. RN's Ashley and Maryjane also in room for care. Wound care will round again on Tue only to check this wound. The remainder of the wounds will be visualized again next week. Left Dorsal Foot Dressing Type: Hydrocolloid Dressing Description: Clean/Dry, Intact Exudate Amount: None Integumentary Issue Intervention: Dressing Removed Sakina Wound Tissue: Calloused, Painful/Tender Wound Bed Color: Brown, Yellow Wound Bed Constitution: Adhered Slough (100%) Wound Edges: Attached Skin Integrity Problem Comment: Wound bed deep and slough has been a little softened with wound gel that was applied under a hydrocolloid this morning. 2% lidocaine applied to wound bed, however the wound was not sharp debrided as it was deep and tendons were palpable directly under the slough. it was lightly cross hatched with forceps. Dr. Ventura notified of recommendation for podiatry consult for debridement. Left Ischial Tuberosity Pressure Injury Dressing Type: Open to Air Exudate Amount: None Sakina Wound Tissue: Xerotic, Painful/Tender Wound Bed Constitution: Granulation Tissue (80%), Adhered Slough (20%) Wound Edges: Attached (majority of wound edges) Site Measurement - Head-to-Toe Length X Width X Depth (cm): 1.2x1x0.2 Pressure Injury Stage: Stage 3 Pressure Injury Present on Admit: Yes Skin Integrity Problem Comment: Slough is mostly removed and wound bed is visible. Small area of slough remains around proximal wound bed which was unable to be debrided with foceps alone and patient would not tolerate the sharp debridement after his leg wounds were debrided. As patient is no longer incontinent of stool the wounds will be covered. Asked Dr. Ventura to D/C order for MAD cream to buttocks as wounds will begin to stall if not covered and kept moist at this point in their healing. Also when patient leaves, D/C orders for initiating collagen have been written and patient should follow up at outpatient wound healing center.
[2017-10-03] MEDS: INSULIN GLARGINE 100 UNITS/ML UNIT SC SCH (21:08)
[2017-10-03] MEDS: ATORVASTATIN CALCIUM 20 MG TAB PO SCH (21:09)
[2017-10-03] MEDS: ASPIRIN 81 MG CHEWABLE TAB PO SCH (21:09)
[2017-10-03] MEDS: METHENAMINE MANDELATE PO SCH (21:12)
[2017-10-03] MEDS ORDERED: LACTULOSE 20 GM/30 ML UDCUP PO PRN (23:49)
[2017-10-03] MEDS ORDERED: MAGNESIUM HYDROXIDE 30 ML UDCUP PO PRN (23:49)
[2017-10-03] MEDS ORDERED: BISACODYL 10 MG SUPP PR PRN (23:49)
[2017-10-04] MEDS: VANCOMYCIN HCL/NORMAL SALINE 250 ML IV SCH ×2 (02:35→15:53)
[2017-10-04] MEDS: AMPICILLIN/SULBACTAM 3 GM in NS 100 ML IV SCH ×4 (05:06→23:00)
[2017-10-04] MEDS: INSULIN LISPRO 100 UNIT/ML SC SCH ×3 (08:26→15:54)
[2017-10-04] MEDS: GABAPENTIN 300 MG CAP PO SCH ×3 (08:27→21:08)
[2017-10-04] MEDS: POTASSIUM CL 20 MEQ TAB PO SCH (08:27)
[2017-10-04] MEDS: FERRO-SEQUELS 65 MG TAB.ER PO SCH ×2 (08:27→21:08)
[2017-10-04] MEDS: LOSARTAN POTASSIUM 50 MG TAB PO SCH (08:27)
[2017-10-04] MEDS: APIXABAN 5 MG TAB PO SCH ×2 (08:27→21:08)
[2017-10-04] MEDS: FUROSEMIDE 40 MG TAB PO SCH (08:27)
[2017-10-04] MEDS: METOPROLOL TARTRATE 50 MG TAB PO SCH ×2 (08:28→21:11)
[2017-10-04] MEDS: glyBURIDE 5 MG TAB PO SCH ×2 (08:28→15:53)
[2017-10-04] MEDS: CETIRIZINE 10 MG TAB PO SCH (08:28)
[2017-10-04] MEDS: LIDO/ZINC OX/CLOTRIMAZOLE (MAD) 116 GM CREAM TP SCH ×2 (08:29→21:07)
[2017-10-04] MEDS: SPIRONOLACTONE 25 MG TAB PO SCH (08:35)
[2017-10-04] MEDS: NYSTATIN POWDER 15 GM BTL TP SCH ×3 (08:35→21:08)
[2017-10-04] MEDS: TAMSULOSIN HCL 0.4 MG CAP PO SCH (08:35)
[2017-10-04] MEDS: TORSEMIDE 20 MG TAB PO SCH ×2 (08:35→21:08)
[2017-10-04] MEDS: SENNOSIDES/DOCUSATE SODIUM TAB PO SCH ×2 (08:36→21:09)
[2017-10-04] MEDS: CALCIUM CARBONATE 500 MG CHEWABLE TAB PO PRN ×2 (09:58→12:47)
--- NOTE | 2017-10-04 10:09 | ASMTCMCOM ---
CM Note CM Note Notes: Per [facility] in [place] they are able to provide wound care products as currently used here at [facility]. CM to follow . Plan: To [facility] in [place] when medically appropriate for discharge. Date Signed: 10/04/2017 10:08 AM Electronically Signed By:Mildred Kaplan RN
--- NOTE | 2017-10-04 14:49 | HOSPPROG ---
Hospitalist Progress Note Assessment/Plan: DIAGNOSES: * acute severe sepsis episode with lactic acidosis September 28, resolved with fluid resuscitation * diabetic foot infection present on admission, left foot * Overall this is improved with significant decrease pain and cellulitis, but there is still edema and an open wound on the dorsum of the foot; the wound is draining less but needs further debridement and appears deeper than it did initially at this time with debridement by surgeon recommended by wound care * new wounds of both legs with infection at ulcers of left leg, all present on admission * At this point all these wounds were improving nicely those a long way to go for complete healing. Signs of infection are resolving very nicely in the wounds and the surrounding cellulitis as well * multiple sacral and right and left buttock decubitus ulcers unstageable present on admission * These have been quite painful for him though surprisingly showed minimal signs of any infection and if needed no debridement. * At this time the pain is not resolved but is improving remarkably over the last couple days * microbiology: Proteus and MRSA growing from the wound on the medial left calf * iron deficiency anemia, new diagnosis at this time * Normal ferritin likely reflects significant inflammation but microcytic anemia and low iron saturation are diagnostic in this case * Needs iron supplements which I have started here * He has had a colonoscopy about 6 months ago, and possibly upper GI study but they cannot recall, waiting to hear back from GI about what was done and/or seen * significant deconditioning, gait instability, high fall risk * This is getting better here so far with decreased pain and with treatment of infection * diabetes mellitus type 2 * Sugars overall in desired range but for some reason we have been getting few fingerstick numbers documented in the computer * chronic right and left heart failure, appears approximately stable at baseline compensation at this time * obstructive sleep apnea and pulmonary hypertension, stable * chronic atrial fibrillation on chronic anticoagulation PLANS: * Continue vancomycin, and Unasyn for now; likely to change to doxy and Augmentin upon discharge * I have spoken with Dr. Narayan Lopez today from Podiatry who will see the patient and determine whether he feels we can do a bedside debridement of his left foot verses debridement in the operating room * I have ordered some iron replacement and will need to continue that as an oral therapy ongoing for now * States he has had recent colonoscopy and ? upper endoscopy. I am waiting to hear back from Gastroenterology about what studies he did have him what was seen. ? If he needs a small bowel capsule study * Fall risk precautions, PT and OT * His chronic anticoagulation for AFib will handle DVT prophylaxis here * Continue his current chronic heart therapies * Continue to treat and monitor sugars carefully here goal range less than 180 without low sugars; some variability in postprandial numbers may be due to either what he is eating or timing of insulin doses. Will work nurses to help follow that closely. * Full cor per the patient's wishes, though that is different than what was checked on a previous most form. New most form was filled out SUBJECTIVE: Continues to have notable decrease in pain with actually very little pain right now, though still unable to sit in a chair for very long due to soreness in his buttock ulcers No fever symptoms No respiratory symptoms OBJECTIVE Vitals reviewed: Blood pressure variable but overall in good range, AFib rate reasonable today, no fever Exam: alert oriented , looks more relaxed skin warm dry color ok resps not labored lungs clear BSs heart regular abd soft nondistended nontender, bowel sounds present No change in appearance of buttock wounds, left foot still has edema over the dorsal aspect, still some slight drainage from the wound on the distal foot but no foul odor, leg wounds in dressings which were just placed and I did not examine the leg wounds today but I did review with wound care nurse, she is pleased with how these wounds are improving so far after her dressing changes today iv site ok Microbiology: Proteus and MRSA growing from the largest calf wound on the left leg medially Blood cultures no growth so far HSV test were all negative Laboratory data: For some reason none of his fingersticks have been in addition to the computer yet today but his sugars have been good throughout yesterday Objective: Vital Signs Temp Pulse Resp BP Pulse Ox 36.7 C 115 H 18 150/86 H 93 10/04/17 07:38 10/04/17 07:38 10/04/17 07:38 10/04/17 07:38 10/04/17 07:38 Microbiology 09/28/17 14:58 Blood Culture - Final Blood 09/28/17 14:30 Blood Culture - Final Blood Laboratory Results 09/28/17 14:30 10/02/17 05:23 10/03/17 10/04/17 10/05/17 06:59 06:59 06:59 Intake Total 300 3050 1480 Output Total 3800 3450 2450 Balance -3500 -400 -970 ICD10 Worksheet Patient Problems: Problems Problem Status Onset Lower limb ulcer Acute Atrial fibrillation Acute Dehydration Acute Weakness Acute chronic disease mgmt/transitional care Acute
[2017-10-04] MEDS ORDERED: BUPIVACAINE 0.5% 10 ML SDV MISC ONE (18:00)
--- NOTE | 2017-10-04 18:01 | PDCONSULT ---
[employer] Note: Dr. Lopez, [facility] consult note Patient is a pleasant 67 y/o male with history of DM2 and peripheral neuropathy seen in bedside chair, awake and oriented x 3. He has a primary complaint of a chronic left foot wound which has been present for a long time but patient is not sure how long. He denies injury to this area of his left foot. He denies pain. He denies nausea, vomiting, fever, chills, SOB. Left foot evaluated. full thickness wound present to the dorsal left foot overlying MPJs 2-4 measuring 4cm x 3cm x 1cm. Mild samra-would edema, erythema noted not to extend more than 2cm beyond wound. No proximal streaking noted. Diminished protective sensation to the level of midcalf bilateral lower extremity. DP/PT pulses +1/[address] scan left foot evaluated. No soft tissue emphysema, no cortical disruption, no signs of osteomyelitis noted. Labs reviewed. Vitals reviewed. Dx: DM2 Peripheral neuropathy Neuropathic left foot wound Cellulitis Plan: After informed consent and sterilization of the area the wound at the left foot was anesthetized with 5ml 0.5% marcaine plain. The foot was then scrubbed and prepped in an aseptic manner. The wound was then debrided to healthy, bleeding tissue. No exposed deep structures. No exposed bone or joint. No collection of fluid or abscess noted. The area was flushed with normal sterile saline solution. The left foot was then dressed with a dry sterile bandage. Wound care services will perform daily wet to dry dressing changes. Antibiotics per medicine. Ok to discharge per podiatry, patient will follow up with wound care facility or SNF.
[2017-10-04] MEDS: ATORVASTATIN CALCIUM 20 MG TAB PO SCH (21:08)
[2017-10-04] MEDS: INSULIN GLARGINE 100 UNITS/ML UNIT SC SCH (21:08)
[2017-10-04] MEDS: ASPIRIN 81 MG CHEWABLE TAB PO SCH (21:09)
[2017-10-04] MEDS: METHENAMINE MANDELATE PO SCH (21:11)
[2017-10-04] MEDS: oxyCODONE IR 5 MG TAB PO PRN (21:16)
[2017-10-05] MEDS: VANCOMYCIN HCL/NORMAL SALINE 250 ML IV SCH ×2 (02:19→15:55)
[2017-10-05] MEDS: AMPICILLIN/SULBACTAM 3 GM in NS 100 ML IV SCH ×2 (05:03→13:26)
[2017-10-05] MEDS: LOSARTAN POTASSIUM 50 MG TAB PO SCH (08:06)
[2017-10-05] MEDS: glyBURIDE 5 MG TAB PO SCH ×2 (08:07→17:36)
[2017-10-05] MEDS: SPIRONOLACTONE 25 MG TAB PO SCH (08:07)
[2017-10-05] MEDS: FERRO-SEQUELS 65 MG TAB.ER PO SCH ×2 (08:07→20:15)
[2017-10-05] MEDS: TAMSULOSIN HCL 0.4 MG CAP PO SCH (08:07)
[2017-10-05] MEDS: METOPROLOL TARTRATE 50 MG TAB PO SCH (08:07)
[2017-10-05] MEDS: CETIRIZINE 10 MG TAB PO SCH (08:07)
[2017-10-05] MEDS: FUROSEMIDE 40 MG TAB PO SCH (08:07)
[2017-10-05] MEDS: TORSEMIDE 20 MG TAB PO SCH ×2 (08:07→20:18)
[2017-10-05] MEDS: APIXABAN 5 MG TAB PO SCH ×2 (08:09→20:17)
[2017-10-05] MEDS: GABAPENTIN 300 MG CAP PO SCH ×3 (08:09→21:40)
[2017-10-05] MEDS: INSULIN LISPRO 100 UNIT/ML SC SCH ×3 (08:11→17:38)
[2017-10-05] MEDS: LIDO/ZINC OX/CLOTRIMAZOLE (MAD) 116 GM CREAM TP SCH ×2 (08:13→21:40)
[2017-10-05] MEDS: oxyCODONE IR 5 MG TAB PO PRN ×3 (08:31→21:49)
[2017-10-05] MEDS: NYSTATIN POWDER 15 GM BTL TP SCH ×3 (08:45→21:42)
[2017-10-05] MEDS ORDERED: LIDOCAINE 2% JELLY 5 ML TUBE TP ONE (11:18)
[2017-10-05] MEDS ORDERED: LIDOCAINE 2% JELLY 5 ML TUBE ONE (11:41)
--- NOTE | 2017-10-05 12:35 | WOCRNPDOC ---
WOCRN Advanced Assessment Note - Skin Integrity Problem, Advanced Assess Left Posterior Medial Calf Dressing Type: Mepilex Dressing Description: Intact, Shadowed Exudate Amount: Moderate Exudate Color: Yellow, Red Exudate Characteristic(s): Serosanguinous Integumentary Issue Intervention: Dressing Changed, Conservative Sharp Bedside Debridement Samra Wound Tissue: Erythema (Mild to 1 cm samra wound), Painful/Tender Wound Bed Constitution: Red/[place] - Non Granular Tissue (10%), Loose Slough (90%) Wound Edges: Attached, Not Attached, Irregular Site Measurement - Head-to-Toe Length X Width X Depth (cm): No change since Tuesday Skin Integrity Problem Comment: Wound very painful it may likely have arterial insufficency aspects to the ulcer, though the wound edges are irregular and the wound is fairly shallow. The patient does not have classical venous insufficency signs. Healing is obviously impaired as wound was debrided to clean tissue two days ago and is now almost completely covered with slough again. Recommend diagnostic studies to check arterial flow and adequecy for wound healing. Discussed concerns with patient and will change plan of care to 1 /4 strength Dakins BID dressign changes for mechanical debridement properties as the current plan with a foam dressing has increased the amount of slough over the wound bed. Discussed plan with Dr. Manning and with RN Rere as well. Wound care will follow. Conservative Sharp Bedside Debridement Performed: Yes Consent Signed for Debridement: Yes Timeout Performed per Protocol: Yes Instrument Used for Debridement: Currette Measurements After Debridement: 5.2x4.1x0.2 Conservative Sharp Bedside Debridement Outcome: Down to Viable Tissue, Hemostasis Achieved Conservative Sharp Bedside Debridement Comment: Wound has developed a significant amount of necrosis over it since sharp debridement on Tuesday. 2% lidocaine jelly applied to wound topcially prior to debridement and after cleaning with ns and gauze. Currette used across majority of wound bed and a thick layer of slough was removed. However due to patient's pain approximately 40% slough remained after completion of sharp debridement. Wound bed that was exposed is pale pink. No granulation present. Left Dorsal Foot Dressing Type: Gauze, Kerlix Dressing Description: Intact, Saturated Exudate Amount: Scant Exudate Characteristic(s): Sanguinous Integumentary Issue Intervention: Dressing Changed Samra Wound Swelling: None Wound Bed Color: Red, Yellow Wound Bed Constitution: Granulation Tissue (70%), Adhered Slough (30% at 3 oclock) Wound Edges: Not Attached Site Measurement - Head-to-Toe Length X Width X Depth (cm): 1.7x3.2x1 Extremity Temperature: Warm Skin Integrity Problem Comment: DFU wound freshly debrided by podiatry yesterday. Recommended amniofill skin tissue substitute to patient covered by a wound vac. Education regarding vac provided to patient however he declined the dressing today. 1/4 strength dakins moist to dry dressing applied instead. Patient said he will think about whether or not he wants the dressing on Tuesday as he is aware wound care is not here . Discussed alternate dressings as well however patient is quite hesitant to try different methodolgies.
[2017-10-05] MEDS: SENNOSIDES/DOCUSATE SODIUM TAB PO SCH ×2 (13:24→20:17)
[2017-10-05] MEDS: POTASSIUM CL 20 MEQ TAB PO SCH (13:24)
--- NOTE | 2017-10-05 18:06 | HOSPPROG ---
Hospitalist Progress Note Assessment/Plan: * acute severe sepsis episode with lactic acidosis 09/28, resolved with fluid resuscitation * diabetic foot infection present on admission, left foot/leg * s/p debridement by podiatry 10/04/2017 Dr. Narayan Lopez * areas not healing well, proteus and MRSA (contact precautions) * concern re vascular status * declines wound vac * appreciate ID and wound care assistance * ID to stop abx * new wounds of both legs with infection at ulcers of left leg, all present on admission * see above * multiple sacral and right and left buttock decubitus ulcers unstageable present on admission * appreciate wound care assistance * iron deficiency anemia, new diagnosis at this time * po iron * says had a colonoscopy about 6 months ago * significant deconditioning, gait instability, high fall risk * pt * diabetes mellitus type 2 * hyperglycemic, increase meds and watch closely * chronic right and left heart failure, appears approximately stable at baseline compensation at this time * obstructive sleep apnea and pulmonary hypertension, stable * chronic atrial fibrillation on chronic anticoagulation Full cor per the patient's wishes, though that is different than what was checked on a previous most form. New most form was filled out PCP-[facility] dispo > 2 mdnts bc of poor wound healing requiring ongoing treatment Subjective: Says feels OK, pain with leg wounds/michael with cleaning/debridements. Denies CP/SOB/abd pain/v/d. No family in room. TT wound care in room. Objective: Vital Signs Temp Pulse Resp BP Pulse Ox 98.6 F 101 H 18 90/61 L 91 L 10/05/17 16:00 10/05/17 16:00 10/05/17 16:00 10/05/17 16:23 10/05/17 16:00 Laboratory Results 10/05/17 12:45 10/05/17 12:45 10/04/17 10/05/17 10/06/17 11:59 11:59 11:59 Intake Total 3037 5051 Output Total 0679 6095 [id number] [facility] -[phone] - Time Spent With Patient Time Spent with Patient: greater than 35 minutes Time Spent with Patient: Greater than 35 minutes spent on this patients care, greater than 50% of time spent counseling, educating, and coordinating care regarding the above mentioned plan. - Physical Exam Constitutional: no apparent distress, obese Eyes: anicteric sclera, EOMI Ears, Nose, Mouth, Throat: moist mucous membranes, hearing normal Cardiovascular: regular rate and rhythym, edema Respiratory: no respiratory distress, no rales or rhonchi, clear to auscultation Gastrointestinal: normoactive bowel sounds, soft, non-tender abdomen Skin: warm, other (LLE with shallow wounds on medial calf-fibrinous, area of debridement on ant foot) Neurologic: other (non focal) Psychiatric: interacting appropriately, not anxious, not encephalopathic, thought process linear ICD10 Worksheet Patient Problems: Problems Problem Status Onset Lower limb ulcer Acute Atrial fibrillation Acute Dehydration Acute Weakness Acute chronic disease mgmt/transitional care Acute
[2017-10-05] MEDS ORDERED: INSULIN GLARGINE 100 UNITS/ML UNIT SC SCH (18:15)
--- NOTE | 2017-10-05 19:05 | PCMIDPN ---
Assessment/Plan: Assessment/Plan: * Bilateral lower extremity ulcerations with left lower extremity cellulitis: Cellulitis fully resolved. Ulcerations with recurrent fibrinous slough which required superficial debridement by on air host earlier today. Right great toe wound debrided by Podiatry yesterday. Given resolution of cellulitis, will discontinue vancomycin and Unasyn with observation off antibiotics. Discussed with hospitalist service and agree with plans for possible CT angiogram to assess for arterial insufficiency as etiology for ulcerations as not typical for venous stasis changes. * Multiple superficial buttock ulcerations: Unclear etiology with negative HSV PCR testing. Clinical findings and plan discussed with patient and Dr. Manning. Will follow peripherally. Please notify for any concerns regarding recurrent infection. 10/05/17 19:01 Subjective: Patient with continued decrease pain in left lower extremity. Wound care notes reviewed noting recurrent fibrinous slough requiring debridement over left lower extremity ulcerations. Podiatry findings also noted. Objective: Vital Signs Temp Pulse Resp BP Pulse Ox 37.0 C 101 H 18 90/61 L 91 L 10/05/17 16:00 10/05/17 16:00 10/05/17 16:00 10/05/17 16:23 10/05/17 16:00 Laboratory Results 10/05/17 12:45 10/05/17 12:45 10/04/17 10/05/17 10/06/17 05:59 05:59 05:59 Intake Total 3050 3040 1000 Output Total 3450 5875 2100 Balance -400 -2835 -1100 ESR 52 MM/HR (0-20) H 09/27/17 11:30 C-Reactive Protein 80.2 mg/L (<10.0) H 09/27/17 11:30 Vancomycin # 7 Unasyn # 6, antibiotics # 7 Blood cultures x2 no growth - Physical Exam General Appearance: alert, no apparent distress EENT: No scleral icterus Extremities: inflammation (Left lower extremity with complete resolution of erythema; ulcerations present over left lower leg now with granulation tissue throughout and shallow base with minimal slough after debridement; clean based wound at base of 1st and 2nd toe) Abdomen: non-tender, No distended - Time Spent With Patient Time Spent with Patient: greater than 25 minutes Time Spent with Patient: Greater than 25 minutes spent on this patients care, greater than 50% of time spent counseling, educating, and coordinating care regarding the above mentioned plan. ICD10 Worksheet Patient Problems: Problems Problem Status Onset Lower limb ulcer Acute Atrial fibrillation Acute Dehydration Acute Weakness Acute chronic disease mgmt/transitional care Acute
[2017-10-05] MEDS: ATORVASTATIN CALCIUM 20 MG TAB PO SCH (20:16)
[2017-10-05] MEDS: ASPIRIN 81 MG CHEWABLE TAB PO SCH (20:16)
[2017-10-05] MEDS ORDERED: ZOLPIDEM TARTRATE 5 MG TAB PO ONE (21:30)
[2017-10-05] MEDS: METOPROLOL TARTRATE 25 MG TAB PO SCH (21:39)
[2017-10-05] MEDS: METHENAMINE MANDELATE PO SCH (21:40)
[2017-10-06] MEDS: METOPROLOL TARTRATE 25 MG TAB PO SCH ×2 (07:31→21:17)
[2017-10-06] MEDS: APIXABAN 5 MG TAB PO SCH ×2 (07:32→21:17)
[2017-10-06] MEDS: GABAPENTIN 300 MG CAP PO SCH ×3 (07:32→21:15)
[2017-10-06] MEDS: SENNOSIDES/DOCUSATE SODIUM TAB PO SCH ×2 (07:32→21:16)
[2017-10-06] MEDS: FUROSEMIDE 40 MG TAB PO SCH (07:32)
[2017-10-06] MEDS: LOSARTAN POTASSIUM 50 MG TAB PO SCH (07:32)
[2017-10-06] MEDS: TORSEMIDE 20 MG TAB PO SCH ×2 (07:33→21:17)
[2017-10-06] MEDS: glyBURIDE 5 MG TAB PO SCH ×2 (07:33→18:09)
[2017-10-06] MEDS: FERRO-SEQUELS 65 MG TAB.ER PO SCH ×2 (07:33→21:15)
[2017-10-06] MEDS: CETIRIZINE 10 MG TAB PO SCH (07:33)
[2017-10-06] MEDS: POTASSIUM CL 20 MEQ TAB PO SCH (07:33)
[2017-10-06] MEDS: TAMSULOSIN HCL 0.4 MG CAP PO SCH (07:33)
[2017-10-06] MEDS: SPIRONOLACTONE 25 MG TAB PO SCH (07:34)
[2017-10-06] MEDS: INSULIN LISPRO 100 UNIT/ML SC SCH ×3 (08:22→18:09)
[2017-10-06] MEDS: LIDO/ZINC OX/CLOTRIMAZOLE (MAD) 116 GM CREAM TP SCH ×2 (08:23→21:19)
[2017-10-06] MEDS: NYSTATIN POWDER 15 GM BTL TP SCH ×3 (08:23→21:19)
[2017-10-06] MEDS: oxyCODONE IR 5 MG TAB PO PRN ×2 (10:47→16:25)
[2017-10-06] MEDS ORDERED: IOPAMIDOL (ISOVUE 370) 100 ML BTL IV ONE (13:41)
--- NOTE | 2017-10-06 17:08 | ASMTCMCOM ---
CM Note CM Note Notes: Spoke w/RN, pt now off abx. Plan remains the same, pt will dc to [facility] when medically stable. CM sent updates to [place] at . DC Plan: [facility]/ [facility] Date Signed: 10/06/2017 05:08 PM Electronically Signed By:Trish Oliver RN
--- NOTE | 2017-10-06 19:04 | HOSPPROG ---
Hospitalist Progress Note Assessment/Plan: * acute severe sepsis episode with lactic acidosis 09/28, resolved with fluid resuscitation * diabetic foot infection present on admission, left foot/leg * s/p debridement by podiatry 10/04/2017 Dr. Narayan Lopez * areas not healing well, proteus and MRSA (contact precautions) * concern re vascular status, CT scan today confirms arterial insuff, discussed this with him at length * declines wound vac, but discussed importance of trying wound vac- he'll consider and talk with wound care tomorrow * appreciate ID and wound care assistance * ID stopped abx * needs vascular surgery consult, discussed with IR * new wounds of both legs with infection at ulcers of left leg, all present on admission * see above * multiple sacral and right and left buttock decubitus ulcers unstageable present on admission * appreciate wound care assistance * iron deficiency anemia, new diagnosis at this time * po iron * says had a colonoscopy about 6 months ago * significant deconditioning, gait instability, high fall risk * pt * diabetes mellitus type 2 * hyperglycemic, increase meds again and watch closely * chronic right and left heart failure, appears approximately stable at baseline compensation at this time * obstructive sleep apnea and pulmonary hypertension, stable * chronic atrial fibrillation on chronic anticoagulation Full cor per the patient's wishes, though that is different than what was checked on a previous most form. New most form was filled out PCP-[facility] dispo > 2 mdnts bc of poor wound healing requiring ongoing treatment Subjective: Family in room, denies CP/SOB/abd pain/n/v/d. Pain OK in legs. Concerned re CT scan again Objective: Vital Signs Temp Pulse Resp BP Pulse Ox 98.4 F 104 H 22 H 164/85 H 97 10/06/17 16:00 10/06/17 16:00 10/06/17 16:00 10/06/17 16:00 10/06/17 16:00 Laboratory Results 10/05/17 12:45 10/05/17 12:45 10/05/17 10/06/17 10/07/17 11:59 11:59 11:59 Intake Total 2060 1900 1920 Output Total 3536 5212 7749 [facility] -[id number] -[phone] - Time Spent With Patient Time Spent with Patient: greater than 35 minutes Time Spent with Patient: Greater than 35 minutes spent on this patients care, greater than 50% of time spent counseling, educating, and coordinating care regarding the above mentioned plan. - Physical Exam Constitutional: no apparent distress, appears nourished, obese Eyes: anicteric sclera, EOMI Ears, Nose, Mouth, Throat: moist mucous membranes, hearing normal Cardiovascular: regular rate and rhythym Respiratory: no respiratory distress, no rales or rhonchi, clear to auscultation Gastrointestinal: normoactive bowel sounds, soft, non-tender abdomen, no palpable masses Skin: warm, other (B LE in dressing, not removed) Psychiatric: interacting appropriately, not anxious, not encephalopathic ICD10 Worksheet Patient Problems: Problems Problem Status Onset Lower limb ulcer Acute Atrial fibrillation Acute Dehydration Acute Weakness Acute chronic disease mgmt/transitional care Acute
[2017-10-06] MEDS: ASPIRIN 81 MG CHEWABLE TAB PO SCH (21:15)
[2017-10-06] MEDS: ATORVASTATIN CALCIUM 20 MG TAB PO SCH (21:17)
[2017-10-06] MEDS: METHENAMINE MANDELATE PO SCH (21:18)
[2017-10-06] MEDS: INSULIN GLARGINE 100 UNITS/ML UNIT SC SCH (21:21)
[2017-10-07] MEDS: oxyCODONE IR 5 MG TAB PO PRN ×3 (02:20→12:52)
[2017-10-07] MEDS: METOPROLOL TARTRATE 25 MG TAB PO SCH ×2 (07:50→22:00)
[2017-10-07] MEDS: GABAPENTIN 300 MG CAP PO SCH ×3 (07:50→21:58)
[2017-10-07] MEDS: FUROSEMIDE 40 MG TAB PO SCH (07:51)
[2017-10-07] MEDS: POTASSIUM CL 20 MEQ TAB PO SCH (07:51)
[2017-10-07] MEDS: TORSEMIDE 20 MG TAB PO SCH ×2 (07:51→21:59)
[2017-10-07] MEDS: glyBURIDE 5 MG TAB PO SCH ×2 (07:51→17:08)
[2017-10-07] MEDS: TAMSULOSIN HCL 0.4 MG CAP PO SCH (07:51)
[2017-10-07] MEDS: SENNOSIDES/DOCUSATE SODIUM TAB PO SCH ×2 (07:51→21:59)
[2017-10-07] MEDS: FERRO-SEQUELS 65 MG TAB.ER PO SCH ×2 (07:51→21:59)
[2017-10-07] MEDS: APIXABAN 5 MG TAB PO SCH ×2 (07:52→21:59)
[2017-10-07] MEDS: LOSARTAN POTASSIUM 50 MG TAB PO SCH (07:52)
[2017-10-07] MEDS: SPIRONOLACTONE 25 MG TAB PO SCH (07:52)
[2017-10-07] MEDS: CETIRIZINE 10 MG TAB PO SCH (07:52)
[2017-10-07] MEDS: NYSTATIN POWDER 15 GM BTL TP SCH ×3 (07:53→22:09)
[2017-10-07] MEDS: LIDO/ZINC OX/CLOTRIMAZOLE (MAD) 116 GM CREAM TP SCH ×2 (07:53→22:02)
[2017-10-07] MEDS: INSULIN LISPRO 100 UNIT/ML SC SCH ×3 (07:53→17:08)
--- NOTE | 2017-10-07 11:34 | HOSPPROG ---
Hospitalist Progress Note Assessment/Plan: 67 yo male with long standing diabetes, HLD, PVD, and hx of prior tobacco use p/ w non healing diabetic foot ulcers and sepsis. He was treated accordingly. He is now off abx. CTA obtained yesterday is c/w with significant bilateral lower extremity vascular insufficiency. * acute severe sepsis episode with lactic acidosis 09/28, resolved with fluid resuscitation *acute on chronic vascular insufficiency with hx of PVD -vascular surgical consult is needed to determine if surgical options are available. I will obtain one today -cont with medical mgmt -cont aspirin and Eliquis -optimize glucose mgmt * diabetic foot infection present on admission, left foot/leg * s/p debridement by podiatry 10/04/2017 Dr. Narayan Lopez * areas not healing well, proteus and MRSA (contact precautions) * ID stopped abx * wound care is following * new wounds of both legs with infection at ulcers of left leg, all present on admission * see above * multiple sacral and right and left buttock decubitus ulcers unstageable present on admission * appreciate wound care assistance * iron deficiency anemia, new diagnosis at this time * po iron * says had a colonoscopy about 6 months ago * significant deconditioning, gait instability, high fall risk * pt * diabetes mellitus type 2 * glucose mgmt is improving * chronic right and left heart failure, appears approximately stable at baseline compensation at this time * obstructive sleep apnea and pulmonary hypertension, stable * chronic atrial fibrillation on chronic anticoagulation Full cor per the patient's wishes, though that is different than what was checked on a previous most form. New most form was filled out PCP-[facility] dispo > 2 mdnts bc of poor wound healing requiring ongoing treatment Plan: -med mgmt -surgical consult -check lipid panel and a1c -cont inpatient -cont Eliquis and Aspirin Subjective: no cp or sob. no n/v. still weak. pt seen with wound care for evaluation of wounds. Objective: Vital Signs Temp Pulse Resp BP Pulse Ox 36.7 C 119 H 18 116/73 94 10/07/17 07:17 10/07/17 07:17 10/07/17 07:17 10/07/17 07:17 10/07/17 07:17 Laboratory Results 10/05/17 12:45 10/07/17 04:39 10/06/17 10/07/17 10/08/17 05:59 05:59 05:59 Intake Total 1900 7740 Output Total 6198 1056 [facility] -2749 -1557 - Time Spent With Patient Time Spent with Patient: greater than 35 minutes Time Spent with Patient: Greater than 35 minutes spent on this patients care, greater than 50% of time spent counseling, educating, and coordinating care regarding the above mentioned plan. - Physical Exam Constitutional: no apparent distress Eyes: PERRL, EOMI Ears, Nose, Mouth, Throat: moist mucous membranes, hearing normal Cardiovascular: regular rate and rhythym Respiratory: no respiratory distress Gastrointestinal: normoactive bowel sounds Skin: other (multiple bilateral lower extremity wounds with various levels of healing and necrosis) Neurologic: AAOx3 Psychiatric: interacting appropriately, not anxious, not encephalopathic Lymph, Heme, Immunologic: No petechiae ICD10 Worksheet Patient Problems: Problems Problem Status Onset Lower limb ulcer Acute Atrial fibrillation Acute Dehydration Acute Weakness Acute chronic disease mgmt/transitional care Acute
--- NOTE | 2017-10-07 12:09 | PCMIDPN ---
Assessment/Plan: Multiple lower extremity ulcers likely ischemic in origin, noted some increased redness of the L dorsum of the foot that significantly improved with elevation , most consistent with dependent rubor as opposed to cellulitis. Nonetheless exam is difficult as feet are chronically cool and painful. Patient has been off antibiotics for less than 2 days, but wound on dorsum of his foot did undergo debridement by Podiatry in the interim --check CBC --surgery consult for peripheral vascular disease --hold abx for now and monitor clinically Subjective: Patient underwent bedside debridement on 10/05/2017. Wound Care and hospitalist felt increased erythema on the left foot today. Patient also feels his foot is a bit more red than previous. Objective: Vital Signs Temp Pulse Resp BP Pulse Ox 36.7 C 119 H 18 116/73 94 10/07/17 07:17 10/07/17 07:17 10/07/17 07:17 10/07/17 07:17 10/07/17 07:17 Laboratory Results 10/05/17 12:45 10/07/17 04:39 10/06/17 10/07/17 10/08/17 05:59 05:59 05:59 Intake Total 1900 2320 Output Total 3775 5800 Balance -1875 -3480 ESR 52 MM/HR (0-20) H 09/27/17 11:30 C-Reactive Protein 80.2 mg/L (<10.0) H 09/27/17 11:30 - Physical Exam General Appearance: alert, no apparent distress, obese Respiratory: lungs clear, No accessory muscle use Neck: supple Cardiac/Chest: regular rate, rhythm Extremities: inflammation (Erythema/inflammation on Dorsum of left foot associated with 3 cm wound, no warmth. Majority of inflammation resolves with elevation of leg.), other (Multiple other superficial ulcers on bilateral lower extremities, seen wound healing nurse for details) Peripheral Pulses: 0: dorsalis-pedis (R), dorsalis-pedis (L) Abdomen: non-tender, soft Skin: No rash Neuro/Psych: alert, normal mood/affect, oriented x 3 - Time Spent With Patient Time Spent with Patient: greater than 25 minutes Time Spent with Patient: Greater than 25 minutes spent on this patients care, greater than 50% of time spent counseling, educating, and coordinating care regarding the above mentioned plan. ICD10 Worksheet Patient Problems: Problems Problem Status Onset Lower limb ulcer Acute Atrial fibrillation Acute Dehydration Acute Weakness Acute chronic disease mgmt/transitional care Acute
--- NOTE | 2017-10-07 12:48 | PDCONSULT ---
[employer] Operator Note: Narayan Lopez DPM Podiatric Surgery Patient seen at bedside, awake and oriented. Complaint of left foot pain. Left foot wound not changed in size since last exam. There is a 50/50 mix of slough and viable tissue. Minimal new grannulation present. Erythema extending into proximal foot marked with marker dated 10/07 has not extended beyond line. Pedal pulses barely palpable /4. CTA demonstrates vascular insufficiency BLE CT left foot does not demonstrate evidence of osteomyelitis Labs and Vitals reviewed Impression: BLE venous insufficiency ulceration Plan: -Continue wound care by nursing staff. I recommend wound VAC be started immediately to aid in grannulation tissue formation. Curetage of wound is appropriate prior to starting wound VAC. -Await vascular surgery eval
[2017-10-07 13:35] LABS: PLATELET COUNT 331 10^3/uL (150-400)
[2017-10-07] MEDS ORDERED: SODIUM HYPOCHLORITE (DAKINS 1/4 STR) 473 ML BTL TP PRN (14:12)
--- NOTE | 2017-10-07 15:05 | WOCRNPDOC ---
[facility] Advanced Assessment Note - Skin Integrity Problem, Advanced Assess Left Posterior Medial Calf Dressing Type: Gauze Dressing Description: Clean/Dry, Intact Exudate Amount: Scant Exudate Characteristic(s): Serosanguinous Integumentary Issue Intervention: Dressing Removed Wound Bed Color: [place], Yellow Wound Bed Constitution: Granulation Tissue (40%), Red/[place] - Non Granular Tissue (40%), Adhered Slough (20%) Wound Edges: Epithelizing, Attached Site Measurement - Head-to-Toe Length X Width X Depth (cm): 11.4x3.9x0.2 Skin Integrity Problem Comment: Wound appears to be healing and after two debridements does not appear to need further debridement at this time. It has improved markedly since Tuesday. Continue Moist to dry dressing changes with 1 /4 strength Dakins. Patient refused to allow wound RN to wipe the top of the wound without applying lidocaine first. Asked RN Trini to replace dressings angela when dakins was in room and ok to dress with moist to dry with ns until pharmacy sends more dakins. Measurements After Debridement: 5.2x4.1x0.2 Left Dorsal Foot Dressing Type: Gauze, Kerlix Dressing Description: Clean/Dry, Intact Exudate Amount: None Integumentary Issue Intervention: Dressing Removed Sakina Wound Tissue: Erythema, Erythema Marked by Wound RN Sakina Wound Swelling: Moderate Wound Bed Color: Brown, Red, Yellow Wound Bed Constitution: Granulation Tissue (30%), Adhered Slough (70%) Wound Edges: Attached Site Measurement - Head-to-Toe Length X Width X Depth (cm): 1.9x3.3x0.5 Skin Integrity Problem Comment: Wound continuing to necrose further. Concern for infection due to sakina wound erythema that is new since last night. Area marked by Maryjane ZENG. Discussed wound vac placement with patient and Dr. Drew. Opted to wait until Tuesday to see if patient will get revascularized over the weekend. Patient open to wound vac placement at that time. Until then continue with BID 1/4 strength dakins moist to dry changes. Wound care will round Tuesday. Right Anterior Lower Distal Leg Dressing Type: Mepilex Transfer Dressing Description: Intact, Shadowed Exudate Amount: Scant Exudate Characteristic(s): Serosanguinous Integumentary Issue Intervention: Dressing Removed Wound Bed Constitution: Red/[place] - Non Granular Tissue Wound Edges: Epithelizing Site Measurement - Head-to-Toe Length X Width X Depth (cm): 7x4.8x0.1 Skin Integrity Problem Comment: Shallow partial thickness wound that patient will again not allow wound RN to clean. It is developing a film of dried thick exudate over wound bed and will necrose if it is not kept clean. Asked RN Trini to attempt to apply lidocaine to see if patient will then tolerate some cleaning of the area. Wound appears stable, though it is not healing quickly. Right Anterior Lower Proximal Leg Dressing Type: Gauze Dressing Description: Clean/Dry, Intact Exudate Amount: None Integumentary Issue Intervention: Dressing Removed Sakina Wound Tissue: Painful/Tender Wound Bed Constitution: Granulation Tissue (30%), Adhered Slough (70%) Wound Edges: Attached, Punched Out Site Measurement - Head-to-Toe Length X Width X Depth (cm): 1.5x1.6x0.3 Skin Integrity Problem Comment: Appears to be one of two smaller arterial ulcers. Both painful and stable. Continue moist to dry dressings with 1/4 strenght dakins for now. Await vascular surgery input. Right Lower Lateral Leg Dressing Type: Tegaderm Absorbant Wound Bed Constitution: Intact Serous Filled Blister Site Measurement - Head-to-Toe Length X Width X Depth (cm): 2.4n8ighsouy blister Skin Integrity Problem Comment: Stable.
[2017-10-07] MEDS: LIDOCAINE 2% JELLY 5 ML TUBE TP SCH ×2 (17:08→18:10)
[2017-10-07] MEDS: SODIUM HYPOCHLORITE (DAKINS 1/4 STR) 473 ML BTL TP SCH (18:10)
--- NOTE | 2017-10-07 20:59 | PDGENHP ---
History & Physical Chief Complaint: LEG SORES History of Present Illness: 67-YEAR-OLD MALE WITH CHRONIC NONHEALING LEG WOUNDS AND VERY LIMITING CLAUDICATION OF ONLY A FEW FEET. I WAS ASKED TO SEE HIM FOR POSSIBLE PERIPHERAL VASCULAR DISEASE. HE HAS BEEN HAVING NONHEALING WOUND FOR SEVERAL MONTHS THINKS AIR MAKING SLIGHT PROGRESS. CTA REVERE LOW HIS NEARLY OCCLUDED AORTA WITH SIGNIFICANT PLAQUE DISEASE IN THE COMMON FEMORAL ARTERIES BILATERALLY WELL POOR DISTAL RUNOFF INCLUDING MULTIPLE CALCIFIED PLAQUES ALL THE WAY DOWN TO THE ANKLE. HE IS DIABETIC AND IS AN EX SMOKER Pertinent Past, Social, Family History: PAST MEDICAL HISTORY INCLUDES CORONARY ARTERY DISEASE FOR WHICH SHE HAS HAD A CORONARY ARTERY BYPASS, COPD, CHRONIC LEG WOUNDS, AND UMBILICAL HERNIA REPAIR, TURP. NO KNOWN ALLERGIES. MEDICATIONS INSULIN, ELIQUIS, ASPIRIN, LIPITOR PLUS OTHERS, SEE LIST. FAMILY HISTORY NONCONTRIBUTORY. -10 POINT REVIEW OF SYSTEMS EXCEPT RELATED TO THE HPI AND THE PAST HISTORY Relevant Physical Exam: GENERAL ALERT 67-YEAR-OLD MALE WHO IS IN NO ACUTE DISTRESS, AFEBRILE. HEENT NONICTERIC, PERRLA, NO CAROTID BRUITS. NECK SUPPLE, NONTENDER. CHEST CLEAR AND SYMMETRIC. COR REGULAR RHYTHM WITH CORONARY ARTERY BYPASS SCAR. ABDOMEN SOFT NONTENDER WITHOUT ORGANOMEGALY DOES HAVE A PROBABLE RECURRENT UMBILICAL HERNIA WHICH IS ABOUT THE SIZE OF A BASEBALL AND IS PARTIALLY REDUCIBLE. HE HAS VERY WEAK OR NON PALPABLE FEMORAL PULSES. EXTREMITIES REVEAL ABSENT PEDAL PULSES HE HAS SIGNIFICANT ULCERATIONS AND SORES ON BOTH LEGS WHICH WERE DRESSED PRESENTLY. NEURO EXAM IS PHYSIOLOGIC AND SYMMETRIC. PSYCH ALERT, ORIENTED, COOPERATIVE Cardiorespiratory Assessment: IMPRESSION: SEVERE PERIPHERAL VASCULAR DISEASE WITH BILATERAL AORTOILIAC DISEASE WELL COMMON FEMORAL ARTERY STENOSES AND SOME DISTAL PERFUSION PROBLEM. HE NEEDS AN AORTO FEMORAL BYPASS IF HE HAS ANY DESIRE HEALING HIS LEG WOUNDS WITHOUT AMPUTATION. HIS AORTA HAS 2 EXTENSIVE DISEASE FOR ANGIOPLASTY. RISKS AND OPTIONS BEEN FULLY DISCUSSED. HE HAS SIGNIFICANT COMORBIDITIES INCLUDING CORONARY ARTERY DISEASE MORBID OBESITY AND PULMONARY INSUFFICIENCY. HE WILL NEED THOROUGH MEDICAL EVALUATION AND CLEARANCE PRIOR TO ANY SUCH A LARGE OPERATION IS AORTOFEMORAL BYPASS. I WILL FOLLOW HIM WITH YOU AN OUTPATIENT AND IF HE CAN OBTAIN MEDICAL CLEARANCE HE WOULD GREATLY BENEFIT FROM AORTOFEMORAL BYPASS AND VOODOO OF SOME BLOOD FLOW INTO BOTH LEGS. NO MINE NOT BE ENOUGH BLOOD FULL TO HELP HEAL HIS WOUND BUT I THINK THAT IT WOULD AND WOULD ELIMINATE HIS CLAUDICATION PROBLEMS
[2017-10-07] MEDS: ASPIRIN 81 MG CHEWABLE TAB PO SCH (21:58)
[2017-10-07] MEDS: ATORVASTATIN CALCIUM 20 MG TAB PO SCH (21:59)
[2017-10-07] MEDS: METHENAMINE MANDELATE PO SCH (22:00)
[2017-10-07] MEDS: INSULIN GLARGINE 100 UNITS/ML UNIT SC SCH (22:09)
[2017-10-08 07:47] VITALS: BP 132/84
[2017-10-08] MEDS: METOPROLOL TARTRATE 25 MG TAB PO SCH (08:00)
[2017-10-08] MEDS: SENNOSIDES/DOCUSATE SODIUM TAB PO SCH (08:00)
[2017-10-08] MEDS: glyBURIDE 5 MG TAB PO SCH (08:00)
[2017-10-08] MEDS: FERRO-SEQUELS 65 MG TAB.ER PO SCH (08:00)
[2017-10-08] MEDS: APIXABAN 5 MG TAB PO SCH (08:00)
[2017-10-08] MEDS: GABAPENTIN 300 MG CAP PO SCH (08:01)
[2017-10-08] MEDS: TAMSULOSIN HCL 0.4 MG CAP PO SCH (08:01)
[2017-10-08] MEDS: CETIRIZINE 10 MG TAB PO SCH (08:01)
[2017-10-08] MEDS: FUROSEMIDE 40 MG TAB PO SCH (08:01)
[2017-10-08] MEDS: SPIRONOLACTONE 25 MG TAB PO SCH (08:01)
[2017-10-08] MEDS: LOSARTAN POTASSIUM 50 MG TAB PO SCH (08:01)
[2017-10-08] MEDS: POTASSIUM CL 20 MEQ TAB PO SCH (08:01)
[2017-10-08] MEDS: TORSEMIDE 20 MG TAB PO SCH (08:02)
[2017-10-08] MEDS: INSULIN LISPRO 100 UNIT/ML SC SCH ×2 (08:02→12:47)
[2017-10-08] MEDS: oxyCODONE IR 5 MG TAB PO PRN ×2 (09:07→14:45)
[2017-10-08] MEDS: LIDO/ZINC OX/CLOTRIMAZOLE (MAD) 116 GM CREAM TP SCH (09:10)
--- NOTE | 2017-10-08 09:39 | PCMIDPN ---
Assessment/Plan: Multiple lower extremity ulcers ischemic in origin, redness of the L dorsum of the foot resolved. Ulcers will not heal without reversal of PVD. Do not feel that wound VAC will facilitate healing of these wounds at this time. Call ID for additional questions. Reviewed Dr. Vizcarra' note S/p 1 week of antibiotics for possible left lower extremity cellulitis Known MRSA colonization: Contact precautions Subjective: Patient continues to complain of lower extremity pain associated with his wounds as well as with ambulation Objective: Vital Signs Temp Pulse Resp BP Pulse Ox 36.6 C 111 H 12 132/84 H 95 10/08/17 07:42 10/08/17 07:42 10/08/17 07:42 10/08/17 07:42 10/08/17 07:42 Laboratory Results 10/07/17 12:08 10/07/17 04:39 10/07/17 10/08/17 10/09/17 05:59 05:59 05:59 Intake Total 2320 300 Output Total 5800 5050 Balance -3480 -5050 300 ESR 52 MM/HR (0-20) H 09/27/17 11:30 C-Reactive Protein 80.2 mg/L (<10.0) H 09/27/17 11:30 - Physical Exam General Appearance: alert, no apparent distress Respiratory: lungs clear Neck: supple Cardiac/Chest: regular rate, rhythm Extremities: other (Multiple superficial ulcers on his bilateral lower extremities; left dorsum of the foot deep 2 cm wound with necrotic material in the base, no purulence, no surrounding erythema) Peripheral Pulses: 0: dorsalis-pedis (R), dorsalis-pedis (L) Abdomen: non-tender, soft Skin: No rash Neuro/Psych: alert, normal mood/affect, oriented x 3 - Time Spent With Patient Time Spent with Patient: greater than 25 minutes Time Spent with Patient: Greater than 25 minutes spent on this patients care, greater than 50% of time spent counseling, educating, and coordinating care regarding the above mentioned plan. ICD10 Worksheet Patient Problems: Problems Problem Status Onset Atrial fibrillation Acute Dehydration Acute Lower limb ulcer Acute Weakness Acute chronic disease mgmt/transitional care Acute
[2017-10-08] MEDS: LIDOCAINE 2% JELLY 5 ML TUBE TP SCH (11:52)
[2017-10-08] MEDS: NYSTATIN POWDER 15 GM BTL TP SCH (11:52)
[2017-10-08] MEDS: SODIUM HYPOCHLORITE (DAKINS 1/4 STR) 473 ML BTL TP SCH (11:53)
[2017-10-08] MEDS ORDERED: METOPROLOL TARTRATE 25 MG TAB PO ONE (12:05)
--- NOTE | 2017-10-08 12:22 | PDDCSUM ---
Discharge Summary Discharge Summary: 67 yo male with long standing diabetes, HLD, PVD, and hx of prior tobacco use p/ w non healing diabetic foot ulcers and sepsis. He was treated accordingly. He is now off abx. CTA obtained yesterday is c/w with significant bilateral lower extremity vascular insufficiency. He was evaluated by Dr. Vizcarra who recommends Aorta Fem Bypass but it is unclear if the patient can tolerate the surgery. At this point, the plan is for the patient to discharge to rehab, optimize medical management, and f/u with Dr. Vizcarra to determine if medical clearance can be obtained. The patient is unsure if he really wants the surgery given the risk and his many comorbidities. He does not have any active infection at this time. However, if he were to get one, treatment will be difficult given the lack of blood supply. He has several ulcers at various healing stages and these will be treated according to the wound care's recommendations. The pt is being discharged to Rehab DDX: * acute severe sepsis episode with lactic acidosis 09/28, resolved *acute on chronic vascular insufficiency with hx of PVD -vascular surgical consult is needed to determine if surgical options are available. I will obtain one today -cont with medical mgmt -cont aspirin and Eliquis -optimize glucose mgmt, insulin was started * diabetic foot infection present on admission, left foot/leg * s/p debridement by podiatry 10/04/2017 Dr. Narayan Lopez * multiple sacral and right and left buttock decubitus ulcers unstageable present on admission * appreciate wound care assistance * iron deficiency anemia, new diagnosis at this time * po iron * says had a colonoscopy about 6 months ago * significant deconditioning, gait instability, high fall risk * diabetes mellitus type 2 *pAfib: cont with med mgmt, BB, AC * chronic right and left heart failure, appears approximately stable at baseline compensation at this time * obstructive sleep apnea and pulmonary hypertension, stable * chronic atrial fibrillation on chronic anticoagulation Meds: see med rec F/U: per above Exam: VSS NAD AAOX3 IRR/IRR S/NT/ND CTA B TOTAL TIME SPENT ON D/C INCLUDING D/W THE PATIENT, CM, AND SURGERY IS 40 MINS.
--- NOTE | 2017-10-08 12:24 | PDIAF ---
- Diagnosis Diagnosis: LOWER EXTREMITY ULCERS, PVD Code Status: Full Code - Medication Management Discharge Medications: Medications to Continue on Transfer Aspirin [Aspirin 81mg (*)] 162 mg PO HS 08/31/17 [Last Taken 09/26/17] Atorvastatin Calcium [Lipitor 20 mg (*)] 20 mg PO HS 08/31/17 [Last Taken ] Methenamine Mandelate [METHENAMINE MANDELATE] 0.5 gm PO HS 08/31/17 [Last Taken 09/26/17] Tamsulosin HCl [Flomax 0.4 MG (*)] 0.4 mg PO DAILY 08/31/17 [Last Taken 09/26/17 ] metFORMIN HCL [Glucophage 500 mg (*)] 1,000 mg PO BID 08/31/17 [Last Taken 09/26 21:00] Apixaban [Eliquis] 5 mg PO BID tab 09/10/17 [Last Taken 09/26/17 21:00] Calcium Carbonate [Tums 500MG (*)] 500 mg PO TID PRN tab.chew 09/10/17 [Last Taken Unknown] Metoprolol Tartrate [Lopressor 50 mg (*)] 75 mg PO BID tab 09/10/17 [Last Taken 09/26/17 21:00] Polyethylene Glycol 3350 [Miralax 17 gm (*)] 17 gm PO DAILY PRN pkt 09/10/17 [ Last Taken Unknown] Potassium Cl [Klor-Con 20 meq (*)] 20 meq PO DAILY tab 09/10/17 [Last Taken ] Spironolactone [Aldactone 25 MG (*)] 25 mg PO DAILY tab 09/10/17 [Last Taken ] Furosemide [Lasix 40 MG (*)] 40 mg PO DAILY 09/27/17 [Last Taken 09/26/17] Gabapentin [Neurontin 300 MG (*)] 600 mg PO TID 09/27/17 [Last Taken 09/26/17 21 :00] Losartan Potassium [Cozaar 50 mg (*)] 50 mg PO DAILY 09/27/17 [Last Taken ] Torsemide [Demadex] 20 mg PO BID 09/27/17 [Last Taken 09/26/17 21:00] Insulin Glargine [Lantus Syringe] 6 units SC HS #30 unit 10/08/17 [Last Taken Unknown] Insulin Lispro [HumaLOG LISPRO] 4 unit SC TIDMEAL #90 unit 10/08/17 [Last Taken Unknown] Sodium Hypochlorite [Dakin's 04/07 Str] 1 ml TP BID 30 Days #1 solution 10/08/17 [ Last Taken Unknown] Discharge Medications: Refer to the Discharge Home Medication list for PRN reason. - Orders Services needed: Registered Nurse, Physical Therapy, Occupational Therapy Isolation Type: Contact Isolation Diet Recommendation: ADA 2000 consistent carb Diet Texture: Regular Texture Diet Additional Instructions: Please follow up angela with [facility] You may reach them at [phone] for an appointment and continued management of your wounds. Please call them angela to schedule your appointment as they fill up quickly. If before that time you have any issues, please follow up with your PCP. Patient will probably need sharp debridment of his wounds on an ongoing basis to achieve wound healing. Patient's left medial leg was conservative sharp debrided at the bedside on 10/03/17. Patient has sitting restrictions and may not sit for longer than one hour 3 times a day. Patient must sit on offloading cushion (roho, air, or other like type) at all times. This is in effect until wound is healed. Patient may shower will all wounds open to air and then dressings may be applied after. Sacral/Coccyx/Left Ischial wounds - you have multiple unstagable pressure injuries on your posterior pevlic region. Wound orders for open buttock wounds: change every 3 days and prn. 1. Clean with ns and gauze 2. apply a small amount of collagen (like paula) to thinly cover wound beds and moisten with a drop or two of NS 3. Cover with border foam dressing. Bilateral lower leg and left foot wound dressing change orders: Order set 1 for right lower leg wounds: Change every day and prn These orders should continue until the wounds have moistened up and are no longer dry and the necrotic tissue (yellow slough) is removed. The slough will hinder wound healing and increase the bioburden in the wounds. Once the wound is moist and at least 80-90% slough free, you may then switch to order set two: 1. Clean wounds well (and if there is yellow slough fairly aggressively) with ns and gauze. (the aggressive cleaning will help remove the slough from the wound bed) 2. Apply skin prep samra wound (if you skip this step the dressings may not stick well) 3. Apply plurogel or other mild hypoclorous acid wound gel (like microcyn) to wound beds. 4. Cover each wound with some replicare or other hydrocolloid. If wound beds have moistened up and do not have much necrosis/yellow slough in them and are open you may cover with a foam dressing instead of a hydrocolloid. You may cut the replicare/hydrocolloid to fit closer to the wound bed but leave at least 1- 2 cm of border. 5. Wrap leg with kerlix 6. Secure with Netting Order Set two for left lower leg wounds and left dorsal foot: Change BID and prn 1. Apply 2% lidocaine jelly and wait for 5 min. Then scrub wounds well to remove as much Yellow necrotic slough as possible. 2. Apply skin prep samra wound (if you skip this step the dressings may not stick well) 3. Moisten gauze with 1/4 strength Dakins and lay over wounds. The gauze should not overlap onto intact skin. Cover with ABD 5. Wrap leg with kerlix/secure with netting. Guadalupe Ray CWON Activity: per above please f/u with Dr. Rodríguez Vizcarra in 1-2 weeks - Follow Up Care Current Providers and Referrals: Patient,NotPresent [Unknown] - As per Instructions
--- NOTE | 2017-10-08 12:48 | ASMTDCNOTE ---
Case Management Discharge Discharge Order Complete? Answers: Yes Patient to Obtain Answers: Other Notes: [facility] Medications Transportation Arranged Answers: [facility] W/C Faxed Final Orders Answers: Yes Family Notified Answers: Yes Discharge Comments Notes: Patient discharged to [facility]. They have arranged transport through [facility]. I notified patient's daughter KARRI Feliz to call report. Date Signed: 10/08/2017 12:48 PM Electronically Signed By:Anette Dunn RN
[2017-10-08] MEDS ORDERED: METOPROLOL TARTRATE 25 MG TAB PO SCH (21:00)
--- NOTE | 2017-10-12 14:09 | PQFORM ---
PHYSICIAN QUERY FORM Needs Your Response This query form is being sent to you to assure this patient record is coded properly. Please respond to the question below: AUTOMOTIVE TIRE TECHNICIAN QUESTION: Dr. Lopez, Review of the Concrete Pump Operator note dated 10/04/2017 indicates a debridement was performed of the left foot wound to healthy, bleeding tissue. Can the debridement be further specified as: * Excisional debridement of necrotic tissue and eschar. Many thanks, ALLEN Boone [facility]/Coding Department W: [phone] INSTRUCTIONS FOR RESPONSE: Answer question by clicking on the "Edit Document" button. Move cursor to area below the stars. When complete, hit "Save." Click on the "Sign" button, then click "Sign" again. Type in your PIN and hit "Enter." MTDD
== END 2017-10-08 14:57 | DRG 622 ==
LOC: EDUNIT# → F3E 13:30
PROVIDERS: ADMIT Internal Medicine; ATTEND Family Medicine
PROC: 0JBR0ZZ Excision of Left Foot Subcutaneous Tissue and Fascia, Open Approach (ICD-10-PCS; principal; 2017-10-04)
DX: E11.621 Type 2 diabetes mellitus with foot ulcer (principal); L97.522 Non-pressure chronic ulcer of other part of left foot with fat layer exposed; Z79.4 Long term (current) use of insulin; Z79.84 Long term (current) use of oral hypoglycemic drugs; I70.244 Atherosclerosis of native arteries of left leg with ulceration of heel and midfoot; L97.221 Non-pressure chronic ulcer of left calf limited to breakdown of skin; I70.232 Atherosclerosis of native arteries of right leg with ulceration of calf; L97.211 Non-pressure chronic ulcer of right calf limited to breakdown of skin; L03.116 Cellulitis of left lower limb; B95.62 Methicillin resistant Staphylococcus aureus infection as the cause of diseases classified elsewhere; B96.4 Proteus (mirabilis) (morganii) as the cause of diseases classified elsewhere; A41.02 Sepsis due to Methicillin resistant Staphylococcus aureus; A41.59 Other Gram-negative sepsis; E87.2 Acidosis; L89.150 Pressure ulcer of sacral region, unstageable; L89.310 Pressure ulcer of right buttock, unstageable; L89.323 Pressure ulcer of left buttock, stage 3; D50.9 Iron deficiency anemia, unspecified; R19.7 Diarrhea, unspecified; I48.91 Unspecified atrial fibrillation; Z79.01 Long term (current) use of anticoagulants; I25.10 Atherosclerotic heart disease of native coronary artery without angina pectoris; Z95.1 Presence of aortocoronary bypass graft; I11.0 Hypertensive heart disease with heart failure; I50.1 Left ventricular failure, unspecified; J44.9 Chronic obstructive pulmonary disease, unspecified; I27.23 Pulmonary hypertension due to lung diseases and hypoxia; G47.33 Obstructive sleep apnea (adult) (pediatric); I27.81 Cor pulmonale (chronic); Z87.891 Personal history of nicotine dependence; E78.5 Hyperlipidemia, unspecified; E66.01 Morbid (severe) obesity due to excess calories; Z68.33 Body mass index [BMI] 33.0-33.9, adult; B37.49 Other urogenital candidiasis; K42.0 Umbilical hernia with obstruction, without gangrene; Z23 Encounter for immunization
CPT/HCPCS: 83516-90; 83520-90; 86255-90; 87529-90; 97110-GP; 97116-GP; 97162-GP; 97166-GO; 97530-GO; 97530-GP; 97535-GO; G0009; G8978-GP-CL; G8979-GP-CJ; G8987-GO-CJ; G8988-GO-CI; J0295; J1815; J2543; J2916; J3370; Q9967

== ENCOUNTER → 2018-02-01 | Outpatient (CLI) | payer OTHER | LOC: BHFA 13:00 | PROVIDERS: ATTEND Internal Medicine Cardiovascular Disease | DX: I48.91 Unspecified atrial fibrillation (principal); R06.02 Shortness of breath; I25.810 Atherosclerosis of coronary artery bypass graft(s) without angina pectoris; I50.32 Chronic diastolic (congestive) heart failure ==

== ENCOUNTER → 2018-03-17 | Outpatient (CLI) | payer OTHER | LOC: BHFA 15:30 | PROVIDERS: ATTEND Internal Medicine Cardiovascular Disease | DX: I73.89 Other specified peripheral vascular diseases (principal) ==

== ENCOUNTER → 2018-05-25 | Outpatient (CLI) | payer OTHER | LOC: BHFA 09:00 | PROVIDERS: ATTEND Internal Medicine Cardiovascular Disease | DX: I25.810 Atherosclerosis of coronary artery bypass graft(s) without angina pectoris (principal); R09.89 Other specified symptoms and signs involving the circulatory and respiratory systems | CPT/HCPCS: 78452; 93017; A9500; J2785 ==

== ENCOUNTER → 2018-06-15 | Outpatient (CLI) | payer OTHER | LOC: BHFA 14:00 | PROVIDERS: ATTEND Internal Medicine Cardiovascular Disease | DX: I25.10 Atherosclerotic heart disease of native coronary artery without angina pectoris (principal) ==

== ENCOUNTER 2018-07-14 11:43 | Day surgery (SDC) | payer OTHER ==
[2018-07-14] MEDS ORDERED: DIAZEPAM 5 MG TAB PO ONE (11:49)
[2018-07-14] MEDS ORDERED: NS 1,000 ML IV ONE (11:49)
[2018-07-14] MEDS ORDERED: FAMOTIDINE 20 MG TAB PO ONE (11:49)
[2018-07-14] MEDS ORDERED: diphenhydrAMINE 25 MG CAP PO ONE (11:49)
[2018-07-14] MEDS ORDERED: ASPIRIN EC 325 MG TAB PO ONE (11:49)
[2018-07-14] MEDS ORDERED: MIDAZOLAM 2 MG/2 ML VIAL ONE ×2 (12:10→14:47)
[2018-07-14] MEDS ORDERED: fentaNYL 100 MCG/2 ML INJ ONE ×2 (12:10→14:47)
[2018-07-14] MEDS ORDERED: LIDOCAINE 1% 300 MG/30 ML SDV ONE (12:10)
[2018-07-14] MEDS ORDERED: IOPAMIDOL (ISOVUE-370) 150 ML BTL IV ONE (12:11)
[2018-07-14 12:44] LABS: PLATELET COUNT 225 10^3/uL (150-400)
[2018-07-14 12:52] LABS: INR 1.2 (0.83-1.16); PROTIME(PATIENT) 14.7 SEC (12.0-15.0)
--- NOTE | 2018-07-14 13:08 | PDPROPOC ---
Sedation Plan of Care Sedation Plan of Care: vital signs stable, mental status noted, patient educated of risks, benefits, alternatives, patient can tolerate sedation ASA Classification: ASA 2 Planned drugs: fentanyl, midazolam Mallampati Score: Class 3 Mallampati Reference Image: Patient passed 3-3-2 rule?: Yes
--- NOTE | 2018-07-14 13:08 | PDRADPRE ---
Radiology History & Physical Indication for procedure: other (Carotid stenosis incompletetly evaluated with ultrasound/diagnostic imaging. Conventional carotid angiogram for surgical evaluation. Concomitant with coronary arteriogram. Risk of stroke discussed with patient and daughter who agree with plan of care.) Home medications: Methenamine Mandelate [METHENAMINE MANDELATE] 0.5 gm PO HS 08/31/17 [Last Taken 11/16/17] Tamsulosin HCl [Flomax 0.4 MG (*)] 0.8 mg PO DAILY 08/31/17 [Last Taken 11/16/17 ] Gabapentin [Neurontin 300 MG (*)] 600 mg PO TID 09/27/17 [Last Taken 11/16/17] Multivitamins [Multivitamin (*)] 1 each PO DAILY 11/17/17 [Last Taken Unknown] Apixaban [Eliquis] 5 mg PO BID 07/12/18 [Last Taken Unknown] Insulin Glargine [Lantus] 40 unit SC HS 07/12/18 [Last Taken Unknown] Insulin Lispro [Humalog] 10 unit SQ TIDMEAL 07/12/18 [Last Taken Unknown] Lisinopril [Zestril 10 mg (*)] 10 mg PO DAILY 07/12/18 [Last Taken Unknown] Metoprolol Tartrate [Lopressor 50 mg (*)] 50 mg PO TID 07/12/18 [Last Taken Unknown] Nitrofurantoin Monohyd/M-Cryst [Macrobid 100 mg Capsule] 100 mg PO BID 07/12/18 [Last Taken Unknown] Spironolactone [Aldactone 25 MG (*)] 25 mg PO DAILY 07/12/18 [Last Taken Unknown ] metFORMIN HCL [Glucophage 500 mg (*)] 500 mg PO BIDMEAL 07/12/18 [Last Taken Unknown] Allergies/Adverse Reactions: No Known Allergies Allergy (Verified 11/17/17 07:50) Mental status: A&Ox3 Heart exam: regular rate and rhythm Mallampati Score: Class 3
[2018-07-14] MEDS ORDERED: CLOPIDOGREL BISULFATE 75 MG TAB ONE (13:55)
--- NOTE | 2018-07-14 13:57 | PDPROPOC ---
Sedation Plan of Care Sedation Plan of Care: mental status noted, patient educated of risks, benefits , alternatives, patient can tolerate sedation ASA Classification: ASA 2 Planned drugs: fentanyl, midazolam Mallampati Score: Class 2 Mallampati Reference Image: Patient passed 3-3-2 rule?: Yes
[2018-07-14] MEDS ORDERED: CLOPIDOGREL BISULFATE 75 MG TAB PO ONE (14:15)
[2018-07-14] MEDS ORDERED: IOPAMIDOL (ISOVUE-300) 100 ML BTL ONE (14:38)
[2018-07-14] MEDS ORDERED: METOPROLOL TARTRATE 5 MG/5 ML INJ ONE (15:12)
[2018-07-14] MEDS ORDERED: OXYCODONE/APAP 5/325 TAB PO PRN (15:25)
[2018-07-14] MEDS ORDERED: NITROGLYCERIN 0.4 MG BTL SL PRN (15:25)
[2018-07-14] MEDS ORDERED: ONDANSETRON 4 MG/2 ML VIAL IVP PRN (15:25)
[2018-07-14] MEDS ORDERED: ATROPINE SULFATE 1 MG/10 ML SYR IVP PRN (15:25)
[2018-07-14] MEDS ORDERED: HYDROCODONE/APAP 5/325 TAB PO PRN (15:25)
--- NOTE | 2018-07-14 17:36 | CPIP ---
[f rep st] INVASIVE CARDIAC PROCEDURE DATE OF PROCEDURE: 07/14/2018 REASON FOR PROCEDURE: Shortness of breath, heart failure, known coronary artery disease. PROCEDURE: 1. Bilateral coronary angiography, left heart catheterization, left ventriculogram. 2. Saphenous vein angiography to the left posterolateral segment. 3. Left internal mammary artery angiography to mid left anterior descending. 4. Right subclavian artery angiography. 5. Aortic root angiography. HISTORY: This is a 68-year-old male with history of prior bypass surgery, severe PAD, known carotid artery disease. The patient had an abnormal outpatient ultrasound, which showed high-grade right inte rnal carotid artery disease. The patient was consented for both carotid angiogram and left heart cath eterization. Please refer to Radiology note on carotid angiogram, which was done before the heart cat heterization was performed. DESCRIPTION OF PROCEDURE: Briefly utilizing the same sheath in the right common femoral artery, was upsized to a long 6-Uzbek sheath. The left coronary artery was selectively engaged with a JL4 cathet er. This showed widely patent left main. Left circumflex artery had mild 20% disease proximally, givi ng off a marginal 1 proximally. This marginal 1 had mild 20% to 30% disease, but was widely patent. J ust after the takeoff of the marginal 1, there was tubular 40% to 50% disease in the mid circumflex. This terminated into what appeared to be a codominant LPLS which appeared healthy and free of disease . The LAD appeared to be 100% occluded after the takeoff of the diagonal artery. The diagonal artery proximally, before it bifurcates into 2 branches, had tubular 40% disease. Distally, the branches wer e small with a superior branch being seemingly diseased but a very tiny vessel. After these images we re obtained, the JL4 catheter was removed. A JR4 catheter was advanced to the right coronary artery. Images of the right coronary artery revealed normal ostial RCA 20% to 30% disease proximally with mor e 30% to 40% disease in the distal RCA. This appeared to be a codominant vessel. The RPDA distally ap peared to have diffuse 20% to 30% disease, but again was a small vessel. After the images were obtain ed, JR4 catheter was pulled back into the first graft, which appeared to be a saphenous vein graft fe eding into what appeared to be a branch off the LPLS. The graft had a tubular stenosis of 40% disease in its mid distal aspect, but no high-grade stenosis. The anastomosis was patent and the distal vess el was patent as well. After the images were obtained, the JR4 catheter was placed into the innominat e artery where angiography the right subclavian artery showed what appeared to be an atretic DAVID art alfonso. This catheter was then pulled back and placed into the left subclavian artery, switched out for a BROWNE catheter. Angiography of the left internal mammary artery showed widely patent BROWNE anastomosi ng to the mid LAD. The distal LAD was a small vessel but appeared to be widely patent. After imaging was obtained, the BROWNE catheter was removed. A pigtail catheter was advanced to left ventricle. EDP w as 15 mmHg. Left ventriculogram in the KNOTT projection showed EF of 65% with no wall motion abnormalit ies. There was no pull-back gradient between the LV and aorta. Aortic root angiography was obtained j ust to make sure there were no other grafts that were missed. Angiography was obtained and this showe d presence of no patent grafts other than the aforementioned saphenous vein graft to the LPLS as well as flow to the [place] arteries. At this time, the pigtail catheter was removed over the 0.035 wire. Right groin was sutured in place. Patient tolerated the procedure well, no complications. IMPRESSION: 1. Carotid angiogram to be dictated by Interventional Radiology. 2. Moderate disease in the mid left circumflex artery and the proximal diagonal artery with occluded left anterior descending. 3. [id number] disease in the right coronary artery which is a codominant circulation. 4. Patent saphenous vein graft to what appears to be a distal branch of the left posterolateral segm ent. 5. Patent left internal mammary artery to the left anterior descending. 6. Atretic right internal mammary artery. 7. Normal ejection fraction. PLAN: The patient has significant carotid artery disease by his carotid angiogram which will be dict ated by Radiology. His coronary artery is disease is stable at this point with no need for percutaneo us coronary intervention. We will continue aggressive medical therapy. Have the patient follow up toshia Morgan as an outpatient for discussion about possible right CEA. /[id number]/MODL
--- NOTE | 2018-07-14 17:50 | CPEKG ---
Test Reason : OPEN Blood Pressure : / mmHG Vent. Rate : 114 BPM Atrial Rate : 120 BPM P-R Int : 134 ms QRS Dur : 105 ms QT Int : 350 ms P-R-T Axes : 000 072 263 degrees QTc Int : 483 ms Atrial fibrillation Probable LVH with secondary repol abnrm Borderline prolonged QT interval Confirmed by Lloyd Car ([id number]) on 07/14/2018 5:50:12 PM Referred By: Zafar Brown Confirmed By:Lloyd Car
[2018-07-14 19:09] VITALS: BP 96/67
== END 2018-07-14 19:05 | disposition home or self-care (01) ==
LOC: FCATH 11:43
PROVIDERS: ATTEND Internal Medicine Cardiovascular Disease
DX: R06.02 Shortness of breath (principal); I25.10 Atherosclerotic heart disease of native coronary artery without angina pectoris; Z95.1 Presence of aortocoronary bypass graft; I50.32 Chronic diastolic (congestive) heart failure; I65.21 Occlusion and stenosis of right carotid artery; E66.09 Other obesity due to excess calories
CPT/HCPCS: 36222; 93005; 93459; C1769; C1894; 82652-90; J1644; J2250; J3010; Q9967